=== PATIENT | female | born 1955 | race Hispanic/Latino ===

== ENCOUNTER 2021-08-09 16:42 | Inpatient (IN) | payer OTHER, SELFPAY ==
--- OUTSIDE RECORDS SUMMARY | 2021-08-09 16:46 | XMS REPORT | Continuity of Care Document ---
:1955 Author Organization [facility] t Address [address] [place] [address] Care Team Providers Name Role Phone PARVIZ Primary Care Physician Unavailable PARVIZ Attending Clinician Unavailable Penny Rodriguez MD Attending Clinician Lab, - Db Attending Clinician Unavailable Parviz LIVE Attending Clinician Payers Payer Name Policy Type Policy Number Effective Date Expiration Date S ource [employer] CHOICE [id number] 2021 00:00:00 Problems Condition Condition Condition Status Onset Resolution Last Treating Co mments Source Name Details Category Date Date Treatment Clinician Date Vitamin D Vitamin D Disease Active Uni vers deficiency deficiency 2-03 it y of 00:00: 00 Medical Branch Type 2 Type 2 Disease Active Univers diabetes diabetes 05-04 ity of mellitus mellitus 00:00: [place] without without 00 Medical complicati complicati Br anch on, on, without without long-term long-term current current use of use of insulin insulin HLD HLD Disease Active Univers (hyperlipi (hyperlipi 05-04 it y of demia) demia) 00:00: 00 Medical Branch Essential Essential Disease Active Uni vers hypertensi hypertensi 1-27 it y of on on 00:00: Medical Branch Depression Depression Disease Active U nivers - ity of 00:00: 00 Medical Branch GERD GERD Disease Active Univers (gastroeso (gastroeso 05-04 it y of phageal phageal 00:00: [place] reflux reflux 00 Medical disease) disease) Branch Type 2 Type 2 Disease Active [facility] diabetes diabetes 05-04 ity of mellitus mellitus 00:00: [place] with with 00 Medical hyperglyce hyperglyce Br anch elsie, elsie, without without long-term long-term current current use of use of insulin insulin Allergies, Adverse Reactions, Alerts Allergy Allergy Status Severity Reaction(s) Onset Inactive Treating Comm ents Source Name Type Date Date Clinician NO KNOWN Drug Active Univers ALLERGIE Class ity of S [place] [facility] [place] Social History Social Habit Start Date Stop Date Quantity Comments Source Exposure to Not sure University of SARS-CoV-2 [place] [facility] (event) Branch History [facility] University o f Alcohol Comment [place] Med ical Branch Alcohol intake 2021-05-11 2021-05-11 Lifetime University of 00:00:00 00:00:00 non-drinker [place] [facility] (finding) Branch History [facility] 2020-02-03 2020-02-03 1 University o f Alcohol Frequency 00:00:00 00:00:00 [place] M edical Branch History SDKY 2020-02-03 2020-02-03 99 University o f Alcohol Std 00:00:00 00:00:00 [place] [facility] Drinks Branch History [facility] 2020-02-03 2020-02-03 1 University o f Alcohol Binge 00:00:00 00:00:00 [place] [facility] al Branch Tobacco use and 2020-02-02 2020-02-02 Never used Universit y of exposure 00:00:00 00:00:00 [facility] Sex [birth year] Universit y of 00:00:00 00:00:00 [facility] Branch Smoking Status Start Date Stop Date Source Never smoker [facility] Branch Medications Ordered Filled Start Stop Current Ordering Indication Dosage Frequency Signature Comments Components Source Medication Medication Date Date Medication? Clinician (SIG) Name Name ampicillin 2021- Yes [id number] 500mg Take 1 Univers 500 mg 2-15 -23 capsule by ity of capsule 00:00: 05:59 mouth [place] 00 :00 every 8 Medical (eight) Branch hours for 7 days. ampicillin 2021- Yes [id number] 500mg Take 1 Univers 500 mg 2-15 -23 capsule by ity of capsule 00:00: 05:59 mouth [place] 00 :00 every 8 Medical (eight) Branch hours for 7 days. Cholecalcif 2022-0 Yes [id number] 2000U Take 1 Univers marlene, 2-03 capsule by ity of Vitamin D3, 00:00: mouth [place] (D3-1999) 00 daily. Medical 50 mcg Take with Branch (2,000 food unit) capsule dulaglutide 2022-0 Yes [id number] .75mg inject Univers (TRULICITY) 2-03 0.75 mg ity o f 0.75 mg/0.5 00:00: [place] mL PnIj 00 skin Medical weekly. Branch Cholecalcif 2022-0 Yes [id number] 2000U Take 1 Univers marlene, 2-03 capsule by ity of Vitamin D3, 00:00: mouth [place] (D3-1999) 00 daily. Medical 50 mcg Take with Branch (2,000 food unit) capsule dulaglutide 2022-0 Yes [id number] .75mg inject Univers (TRULICITY) 2-03 0.75 mg ity o f 0.75 mg/0.5 00:00: [place] mL PnIj 00 skin Medical weekly. Branch Cholecalcif 2-0 Yes [id number] 2000U Take 1 Univers marlene, 2-03 capsule by ity of Vitamin D3, 00:00: mouth [place] (D3-1999) 00 daily. Medical 50 mcg Take with Branch (2,000 food unit) capsule dulaglutide 2022-0 Yes [id number] .75mg inject Univers (TRULICITY) 2-03 0.75 mg ity o f 0.75 mg/0.5 00:00: under the [place] mL PnIj 00 skin Medical weekly. Branch Cholecalcif 2022-0 Yes [id number] 1999U Take 1 Univers marlene, 2-03 capsule by ity of Vitamin D3, 00:00: mouth [place] (D3-1999) 00 daily. Medical 50 mcg Take with Branch (2,000 food unit) capsule dulaglutide 2022-0 Yes [id number] .75mg inject Univers (TRULICITY) 2-03 0.75 mg ity o f 0.75 mg/0.5 00:00: [place] the [place] mL PnIj 00 skin Medical weekly. Branch Cholecalcif 2022-0 Yes [id number] 2000U Take 1 Univers marlene, 2-03 capsule by ity of Vitamin D3, 00:00: mouth [place] (D3-1999) 00 daily. Medical 50 mcg Take with Branch (2,000 food unit) capsule dulaglutide Yes [id number] .75mg inject Univers (TRULICITY) 2-03 0.75 mg ity o f 0.75 mg/0.5 00:00: under the [place] mL PnIj 00 skin Medical weekly. Branch Cholecalcif Yes [id number] 2000U Take 1 Univers marlene, 2-03 capsule by ity of Vitamin D3, 00:00: mouth [place] (D3-1999) 00 daily. Medical 50 mcg Take with Branch (2,000 food unit) capsule dulaglutide Yes [id number] .75mg inject Univers (TRULICITY) 2-03 0.75 mg ity o f 0.75 mg/0.5 00:00: under the [place] mL PnIj 00 skin Medical weekly. Branch citalopram 2021- No 10mg Take 10 mg Univers 10 mg 05-04 by mouth ity of tablet 14:05: 00:00 daily. [place] 01 : Medical Branch gabapentin 2021- No 300mg Take 300 U nivers 300 mg 05-04-27 mg by ity of capsule 14:05: 00:00 mouth 3 [place] 01 :00 (three) Medical times Branch daily. citalopram 2021- No 10mg Take 10 mg Univers 10 mg 05-04 by mouth ity of tablet 14:05: 00:00 daily. [place] 01 : Medical Branch gabapentin 2021- No 300mg Take 300 U nivers 300 mg 05-04-27 mg by ity of capsule 14:05: 00:00 mouth 3 [place] 01 :00 (three) Medical times Branch daily. insulin NPH 2021- No inject Uni vers hum/reg 05-04 under the ity of insulin hm 14:00: 00:00 skin. 50 [place] (NOVOLIN 46 :00 units in Medical 70/30 U-100 AM and 30 [facility] INSULIN SC) units pm insulin NPH 2021- No inject Uni vers hum/reg 05-04 under the ity of insulin hm 14:00: 00:00 skin. 50 [place] (NOVOLIN 46 :00 units in Medical 70/30 U-100 AM and 30 [facility] INSULIN SC) units pm aspirin 2021-0 Yes 81mg Take 81 mg Univ ers (ADULT LOW 1-27 by mouth ity o f DOSE 13:45: daily. [place] ASPIRIN) 81 22 Medical mg EC Branch tablet CENTRUM 2021-0 Yes Take by Univer s ORAL 1- mouth. ity of 13:45: Medical Branch aspirin 2021-0 Yes 81mg Take 81 mg Univ ers (ADULT LOW 1-27 by mouth ity o f DOSE 13:45: daily. [place] ASPIRIN) 81 22 Medical mg EC Branch tablet CENTRUM 2021-0 Yes Take by Univer s ORAL 1- mouth. ity of 13:45: Medical Branch aspirin 2021-0 Yes 81mg Take 81 mg Univ ers (ADULT LOW 1-27 by mouth ity o f DOSE 13:45: daily. [place] ASPIRIN) 81 22 Medical mg EC Branch tablet CENTRUM 2021-0 Yes Take by Univer s ORAL 1- mouth. ity of 13:45: Medical Branch aspirin 2021-0 Yes 81mg Take 81 mg Univ ers (ADULT LOW 1-27 by mouth ity o f DOSE 13:45: daily. [place] ASPIRIN) 81 22 Medical mg EC Branch tablet CENTRUM 2021-0 Yes Take by Univer s ORAL 1- mouth. ity of 13:45: Medical Branch aspirin 2021-0 Yes 81mg Take 81 mg Univ ers (ADULT LOW 1-27 by mouth ity o f DOSE 13:45: daily. [place] ASPIRIN) 81 22 Medical mg EC Branch tablet CENTRUM 2021-0 Yes Take by Univer s ORAL - mouth. ity of 13:45: Medical Branch aspirin 2021-0 Yes 81mg Take 81 mg Univ ers (ADULT LOW 1-27 by mouth ity o f DOSE 13:45: daily. [place] ASPIRIN) 81 22 Medical mg EC Branch tablet CENTRUM 2021-0 Yes Take by Univer s ORAL 1- mouth. ity of 13:45: Medical Branch aspirin 2-0 Yes 81mg Take 81 mg Univ ers (ADULT LOW 1-27 by mouth ity o f DOSE 13:45: daily. [place] ASPIRIN) 81 22 Medical mg EC Branch tablet CENTRUM 2021-0 Yes Take by Univer s ORAL 1-27 mouth. ity of 13:45: [address] aspirin 2021-0 Yes 81mg Take 81 mg Univ ers (ADULT LOW 1-27 by mouth ity o f DOSE 13:45: daily. [place] ASPIRIN) 81 22 Medical mg EC Branch tablet CENTRUM 2021-0 Yes Take by Univer s ORAL 1-27 mouth. ity of 13:45: [address] aspirin 2021-0 Yes 81mg Take 81 mg Univ ers (ADULT LOW 1-27 by mouth ity o f DOSE 13:45: daily. [place] ASPIRIN) 81 22 Medical mg EC Branch tablet CENTRUM 2021-0 Yes Take by Univer s ORAL 1-27 mouth. ity of 13:45: [address] ezetimibe 2021-0 Yes 10mg Take 10 mg Un jose 10 mg 1-27 by mouth ity of tablet 13:40: daily. [address] ezetimibe 2021-0 Yes 10mg Take 10 mg Un jose 10 mg 1-27 by mouth ity of tablet 13:40: daily. [address] ezetimibe 2021-0 Yes 10mg Take 10 mg Un jose 10 mg 1-27 by mouth ity of tablet 13:40: daily. [address] ezetimibe 2021-0 Yes 10mg Take 10 mg Un jose 10 mg 1-27 by mouth ity of tablet 13:40: daily. [address] ezetimibe 2021-0 Yes 10mg Take 10 mg Un jose 10 mg 1-27 by mouth ity of tablet 13:40: daily. [address] ezetimibe 2021-0 Yes 10mg Take 10 mg Un jose 10 mg 1-27 by mouth ity of tablet 13:40: daily. [address] ezetimibe 2021-0 Yes 10mg Take 10 mg Un jose 10 mg 1-27 by mouth ity of tablet 13:40: daily. [address] ezetimibe 2021-0 Yes 10mg Take 10 mg Un jose 10 mg 1-27 by mouth ity of tablet 13:40: daily. [address] ezetimibe 2021-0 Yes 10mg Take 10 mg Un jose 10 mg 1-27 by mouth ity of tablet 13:40: daily. [address] metFORMIN 2022-0 Yes 1000mg Take 1,000 Univers 1,000 mg 1-27 mg by ity of tablet 13:36: mouth 2 [place] [address] (two) Medical times Branch daily with meals. metFORMIN 2022-0 Yes 1000mg Take 1,000 Univers 1,000 mg 1-27 mg by ity of tablet 13:36: mouth 2 [place] 25 (two) Medical times Branch daily with meals. metFORMIN 2022-0 Yes 1000mg Take 1,000 Univers 1,000 mg 1-27 mg by ity of tablet 13:36: mouth 2 [place] 25 (two) Medical times Branch daily with meals. metFORMIN 2022-0 Yes 1000mg Take 1,000 Univers 1,000 mg 1-27 mg by ity of tablet 13:36: mouth 2 [place] 25 (two) Medical times Branch daily with meals. metFORMIN 2022-0 Yes 1000mg Take 1,000 Univers 1,000 mg 1-27 mg by ity of tablet 13:36: mouth 2 [place] 25 (two) Medical times Branch daily with meals. metFORMIN 2022-0 Yes 1000mg Take 1,000 Univers 1,000 mg 1-27 mg by ity of tablet 13:36: mouth 2 [place] [address] (two) Medical times Branch daily with meals. metFORMIN 2022-0 Yes 1000mg Take 1,000 Univers 1,000 mg 1-27 mg by ity of tablet 13:36: mouth 2 [place] 25 (two) Medical times Branch daily with meals. metFORMIN 2022-0 Yes 1000mg Take 1,000 Univers 1,000 mg 1-27 mg by ity of tablet 13:36: mouth 2 [place] 25 (two) Medical times Branch daily with meals. metFORMIN 2022-0 Yes 1000mg Take 1,000 Univers 1,000 mg 1-27 mg by ity of tablet 13:36: mouth 2 [place] [address] (two) Medical times Branch daily with meals. citalopram 2022-0 Yes [id number] 10mg Take 1 Univers 10 mg 1-27 tablet by ity of tablet 00:00: mouth [place] 00 daily. Medical Branch gabapentin 2022-0 Yes [id number] 400mg Take 1 Univers 400 mg 1-27 capsule by ity of capsule 00:00: mouth 3 [place] 00 (three) Medical times Branch daily. insulin NPH 2022-0 Yes [id number] Inj 50 Univers and regular 1-27 units SC ity of human 70-30 00:00: qAC [place] (NOVOLIN 00 breakfast Medica l 70/30 U-100 and 30 Branch INSULIN) units qAC 100 unit/mL dinner (70-30) injection citalopram Yes [id number] 10mg Take 1 Univers 10 mg 1-27 tablet by ity of tablet 00:00: mouth 00 daily. Medical Branch gabapentin Yes [id number] 400mg Take 1 Univers 400 mg 1-27 capsule by ity of capsule 00:00: mouth 3 (three) Medical times Branch daily. insulin NPH Yes [id number] Inj 50 Univers and regular 1-27 units SC [facility] Med[facility] l 70/30 U-100 and 30 Branch INSULIN) units qAC 100 unit/mL dinner (70-30) injection citalopram Yes [id number] 10mg Take 1 Univers 10 mg 1-27 tablet by ity of tablet 00:00: mouth 00 daily. Medical Branch gabapentin Yes [id number] 400mg Take 1 Univers 400 mg 1-27 capsule by ity of capsule 00:00: mouth (three) Medical times Branch daily. insulin NPH Yes [id number] Inj 50 Univers and regular 1-27 units SC [facility] Medica l 70/30 U-100 and 30 Branch INSULIN) units qAC 100 unit/mL dinner (70-30) injection citalopram Yes [id number] 10mg Take 1 Univers 10 mg 1-27 tablet by ity of tablet 00:00: mouth 00 daily. Medical Branch gabapentin Yes [id number] 400mg Take 1 Univers 400 mg 1-27 capsule by ity of capsule 00:00: mouth 3 (three) Medical times Branch daily. insulin NPH Yes [id number] Inj 50 Univers and regular 1-27 units SC ity [facility] human [facility] Medica l 70/30 U-100 and 30 Branch INSULIN) units qAC 100 unit/mL dinner (70-30) injection citalopram Yes [id number] 10mg Take 1 Univers 10 mg 1-27 tablet by ity of tablet 00:00: mouth [place] 00 daily. Medical Branch gabapentin Yes [id number] 400mg Take 1 Univers 400 mg 1-27 capsule by ity of capsule 00:00: mouth 3 (three) Medical times Branch daily. insulin NPH Yes [id number] Inj 50 Univers and regular 1-27 units SC ity of human 70-30 00:00: qAC [place] (NOVOLIN 00 breakfast Medica l 70/30 U-100 and 30 Branch INSULIN) units qAC 100 unit/mL dinner (70-30) injection citalopram Yes [id number] 10mg Take 1 Univers 10 mg 1-27 tablet by ity of tablet 00:00: mouth [place] 00 daily. Medical Branch gabapentin Yes [id number] 400mg Take 1 Univers 400 mg 1-27 capsule by ity of capsule 00:00: mouth (three) Medical times Branch daily. insulin NPH Yes [id number] Inj 50 Univers and regular 1-27 units SC ity of human 70-30 00:00: qAC [place] (NOVOLIN 00 breakfast Medica l 70/30 U-100 and 30 Branch INSULIN) units qAC 100 unit/mL dinner (70-30) injection citalopram Yes [id number] 10mg Take 1 Univers 10 mg 1-27 tablet by ity of tablet 00:00: mouth [place] 00 daily. Medical Branch gabapentin Yes [id number] 400mg Take 1 Univers 400 mg 1-27 capsule by ity of capsule 00:00: mouth (three) Medical times Branch daily. insulin NPH Yes [id number] Inj 50 Univers and regular 1-27 units SC ity of human 70-30 00:00: qAC [place] (NOVOLIN 00 breakfast Medica l 70/30 U-100 and 30 Branch INSULIN) units qAC 100 unit/mL dinner (70-30) injection citalopram Yes [id number] 10mg Take 1 Univers 10 mg 1-27 tablet by ity of tablet 00:00: mouth [place] 00 daily. Medical Branch gabapentin Yes [id number] 400mg Take 1 Univers 400 mg 1-27 capsule by ity of capsule 00:00: mouth 3 (three) Medical times Branch daily. insulin NPH Yes [id number] Inj 50 Univers and regular 1-27 units SC ity of human 70-30 00:00: qAC [place] (NOVOLIN 00 breakfast Medica l 70/30 U-100 and 30 Branch INSULIN) units qAC 100 unit/mL dinner (70-30) injection citalopram Yes [id number] 10mg Take 1 Univers 10 mg 1-27 tablet by ity of tablet 00:00: mouth [place] 00 daily. Medical Branch gabapentin Yes [id number] 400mg Take 1 Univers 400 mg 1-27 capsule by ity of capsule 00:00: mouth 3 (three) Medical times Branch daily. insulin NPH Yes [id number] Inj 50 Univers and regular 1-27 units SC [facility]y [facility] human [facility] Medica l 70/30 U-100 and 30 Branch INSULIN) units qAC 100 unit/mL dinner (70-30) injection pantoprazol 2019-04 Yes [id number] 20mg Take 1 Univers e 20 mg EC 1-03 tablet by ity of tablet 00:00: mouth 2 (two) Medical times Branch daily. atorvastati 2019-04 Yes [id number] 80mg Take 1 Univers n 80 mg 1-03 tablet by ity of tablet 00:00: mouth at [place] 00 bedtime. Medical Branch Lancets 2019-04 Yes [id number] Use as Uni vers Misc 03 directed ity of 00:00: [place] 00 Medical Branch blood sugar 2019-04 Yes [id number] Check Univers diagnostic 1-03 blood ity of (BLOOD 00:00: sugar [place] GLUCOSE 00 daily in Medical TEST) strip morning Branc h before meals pantoprazol 2019-04 Yes [id number] 20mg Take 1 Univers e 20 mg EC 1-03 tablet by ity of tablet 00:00: mouth 2 (two) Medical times Branch daily. atorvastati 2019-04 Yes [id number] 80mg Take 1 Univers n 80 mg 1-03 tablet by ity of tablet 00:00: mouth at [place] 00 bedtime. Medical Branch Lancets 2019-04 Yes [id number] Use as Uni vers Misc 03 directed ity of 00:00: [place] 00 Medical Branch blood sugar 2019-04 Yes [id number] Check Univers diagnostic 04-10 blood ity of (BLOOD 00:00: sugar [place] GLUCOSE 00 daily in Medical TEST) strip morning Branc h before meals pantoprazol 2019-04 Yes [id number] 20mg Take 1 Univers e 20 mg EC 1-03 tablet by ity of tablet 00:00: mouth 2 (two) Medical times Branch daily. atorvastati 2019-04 Yes [id number] 80mg Take 1 Univers n 80 mg 1-03 tablet by ity of tablet 00:00: mouth at [place] 00 bedtime. Medical Branch Lancets 2019-04 Yes [id number] Use as Uni vers Misc - directed ity of 00:00: [place] 00 Medical Branch blood sugar 2019-04 Yes [id number] Check Univers diagnostic 04-10 blood ity of (BLOOD 00:00: sugar [place] GLUCOSE 00 daily in Medical TEST) strip morning Branc h before meals pantoprazol 2019-04 Yes [id number] 20mg Take 1 Univers e 20 mg EC 1-03 tablet by ity of tablet 00:00: mouth 2 (two) Medical times Branch daily. atorvastati 2019-04 Yes [id number] 80mg Take 1 Univers n 80 mg 1-03 tablet by ity of tablet 00:00: mouth at [place] 00 bedtime. Medical Branch Lancets 2019-04 Yes [id number] Use as Uni vers Misc - directed ity of 00:00: [place] 00 Medical Branch blood sugar 2019-04 Yes [id number] Check Univers diagnostic 04-10 blood ity of (BLOOD 00:00: sugar [place] GLUCOSE 00 daily in Medical TEST) strip morning Branc h before meals pantoprazol 2019-04 Yes [id number] 20mg Take 1 Univers e 20 mg EC 1-03 tablet by ity of tablet 00:00: mouth 2 (two) Medical times Branch daily. atorvastati 2019-04 Yes [id number] 80mg Take 1 Univers n 80 mg 1-03 tablet by ity of tablet 00:00: mouth at [place] 00 bedtime. Medical Branch Lancets 2019-04 Yes [id number] Use as Uni vers Misc 1- directed ity of 00:00: [place] 00 Medical Branch blood sugar 2019-04 Yes [id number] Check Univers diagnostic 1-03 blood ity of (BLOOD 00:00: sugar [place] GLUCOSE 00 daily in Medical TEST) strip morning Branc h before meals pantoprazol 2019-04 Yes [id number] 20mg Take 1 Univers e 20 mg EC 1-03 tablet by ity of tablet 00:00: mouth 2 (two) Medical times Branch daily. atorvastati 2019-04 Yes [id number] 80mg Take 1 Univers n 80 mg 1-03 tablet by ity of tablet 00:00: mouth at [place] 00 bedtime. Medical Branch Lancets 2019-04 Yes [id number] Use as Uni vers Misc - directed ity of 00:00: [place] 00 Medical Branch blood sugar 2019-04 Yes [id number] Check Univers diagnostic 04-10 blood ity of (BLOOD 00:00: sugar [place] GLUCOSE 00 daily in Medical TEST) strip morning Branc h before meals pantoprazol 2019-04 Yes [id number] 20mg Take 1 Univers e 20 mg EC 1-03 tablet by ity of tablet 00:00: mouth 2 (two) Medical times Branch daily. atorvastati 2019-04 Yes [id number] 80mg Take 1 Univers n 80 mg 1-03 tablet by ity of tablet 00:00: mouth at [place] 00 bedtime. Medical Branch Lancets 2019-04 Yes [id number] Use as Uni vers Misc - directed ity of 00:00: [place] 00 Medical Branch blood sugar 2019-04 Yes [id number] Check Univers diagnostic 04-10 blood ity of (BLOOD 00:00: sugar [place] GLUCOSE 00 daily in Medical TEST) strip morning Branc h before meals pantoprazol 2019-04 Yes [id number] 20mg Take 1 Univers e 20 mg EC 1-03 tablet by ity of tablet 00:00: mouth 2 (two) Medical times Branch daily. atorvastati 2019-04 Yes [id number] 80mg Take 1 Univers n 80 mg 1-03 tablet by ity of tablet 00:00: mouth at [place] 00 bedtime. Medical Branch Lancets 2019-04 Yes [id number] Use as Uni vers Misc -03 directed ity of 00:00: [place] 00 Medical Branch blood sugar 2019-04 Yes [id number] Check Univers diagnostic 03 blood ity of (BLOOD 00:00: sugar [place] GLUCOSE 00 daily in Medical TEST) strip morning Branc h before meals pantoprazol 2019-04 Yes [id number] 20mg Take 1 Univers e 20 mg EC 1-03 tablet by ity of tablet 00:00: mouth 2 00 (two) Medical times Branch daily. atorvastati 2019-04 Yes [id number] 80mg Take 1 Univers n 80 mg -03 tablet by ity of tablet 00:00: mouth at [place] 00 bedtime. Medical Branch Lancets 2019-04 Yes [id number] Use as Uni vers Misc 04-10 directed ity of 00:00: [place] 00 Medical Branch blood sugar 2019-04 Yes [id number] Check Univers diagnostic 04-10 blood ity of (BLOOD 00:00: sugar [place] GLUCOSE 00 daily in Medical TEST) strip morning Branc h before meals Immunizations Ordered Filled Immunization Date Status Comments Sourc e Immunization Name Name SARS-COV-2 COVID-19 2021-03-02 Completed Unive rsity of MODERNA VACCINE 00:00:00 [facility] SARS-COV-2 COVID-19 2021-03-02 Completed Unive rsity of MODERNA VACCINE 00:00:00 [facility] SARS-COV-2 COVID-19 2021-03-02 Completed Unive rsity of MODERNA VACCINE 00:00:00 [facility] SARS-COV-2 COVID-19 2021-03-02 Completed Unive rsity of MODERNA VACCINE 00:00:00 [facility] SARS-COV-2 COVID-19 2021-03-02 Completed Unive rsity of MODERNA VACCINE 00:00:00 [facility] SARS-COV-2 COVID-19 2021-03-02 Completed Unive rsity of MODERNA VACCINE 00:00:00 [facility] SARS-COV-2 COVID-19 2021-03-02 Completed Unive rsity of MODERNA VACCINE 00:00:00 [facility] SARS-COV-2 COVID-19 2021-03-02 Completed Unive rsity of MODERNA VACCINE 00:00:00 [facility] SARS-COV-2 COVID-19 2021-03-02 Completed Unive rsity of MODERNA VACCINE 00:00:00 [facility] SARS-COV-2 COVID-19 2020-06-12 Completed Unive rsity of MODERNA VACCINE 00:00:00 [place] Med ical Branch SARS-COV-2 COVID-19 2020-06-12 Completed Unive rsity of MODERNA VACCINE 00:00:00 [place] Med ical Branch SARS-COV-2 COVID-19 2020-06-12 Completed Unive rsity of MODERNA VACCINE 00:00:00 [place] Med ical Branch SARS-COV-2 COVID-19 2020-06-12 Completed Unive rsity of MODERNA VACCINE 00:00:00 [place] Med ical Branch SARS-COV-2 COVID-19 2020-06-12 Completed Unive rsity of MODERNA VACCINE 00:00:00 [place] Med ical Branch SARS-COV-2 COVID-19 2020-06-12 Completed Unive rsity of MODERNA VACCINE 00:00:00 [place] Med ical Branch SARS-COV-2 COVID-19 2020-06-12 Completed Unive rsity of MODERNA VACCINE 00:00:00 [place] Med ical Branch SARS-COV-2 COVID-19 2020-06-12 Completed Unive rsity of MODERNA VACCINE 00:00:00 [place] Med ical Branch SARS-COV-2 COVID-19 2020-06-12 Completed Unive rsity of MODERNA VACCINE 00:00:00 [place] Med ical Branch SARS-COV-2 COVID-19 2020-05-15 Completed Unive rsity of MODERNA VACCINE 00:00:00 [place] Med ical Branch SARS-COV-2 COVID-19 2020-05-15 Completed Unive rsity of MODERNA VACCINE 00:00:00 [place] Med ical Branch SARS-COV-2 COVID-19 2020-05-15 Completed Unive rsity of MODERNA VACCINE 00:00:00 [place] Med ical Branch SARS-COV-2 COVID-19 2020-05-15 Completed Unive rsity of MODERNA VACCINE 00:00:00 [place] Med ical Branch SARS-COV-2 COVID-19 2020-05-15 Completed Unive rsity of MODERNA VACCINE 00:00:00 [place] Med ical Branch SARS-COV-2 COVID-19 2020-05-15 Completed Unive rsity of MODERNA VACCINE 00:00:00 [place] Med ical Branch SARS-COV-2 COVID-19 2020-05-15 Completed Unive rsity of MODERNA VACCINE 00:00:00 [place] Med ical Branch SARS-COV-2 COVID-19 2020-05-15 Completed Unive rsity of MODERNA VACCINE 00:00:00 [place] Med ical Branch SARS-COV-2 COVID-19 2020-05-15 Completed Unive rsity of MODERNA VACCINE 00:00:00 [place] Med ical Branch Pneumococcal 2020-02-04 Completed University o f Polysaccharide, 00:00:00 [place] Med ical PPSV23 (PNEUMOVAX) Branch Pneumococcal 2020-02-04 Completed University o f Polysaccharide, 00:00:00 [place] Med ical PPSV23 (PNEUMOVAX) Branch Pneumococcal 2020-02-04 Completed University o f Polysaccharide, 00:00:00 [place] Med ical PPSV23 (PNEUMOVAX) Branch Pneumococcal 2020-02-04 Completed University o f Polysaccharide, 00:00:00 [place] Med ical PPSV23 (PNEUMOVAX) Branch Pneumococcal 2020-02-04 Completed University o f Polysaccharide, 00:00:00 [place] [facility] PPSV23 (PNEUMOVAX) Branch Pneumococcal 2020-02-04 Completed [facility] f Polysaccharide, 00:00:00 [place] [facility] PPSV23 (PNEUMOVAX) Branch Pneumococcal 2020-02-04 Completed [facility] o f Polysaccharide, 00:00:00 [place] [facility] PPSV23 (PNEUMOVAX) Branch Pneumococcal 2020-02-04 Completed University o f Polysaccharide, 00:00:00 [place] [facility] PPSV23 (PNEUMOVAX) Branch Pneumococcal 2020-02-04 Completed [facility] o f Polysaccharide, 00:00:00 [place] [facility] PPSV23 (PNEUMOVAX) Branch Vital Signs Vital Name Observation Time Observation Value Comments Source Systolic blood 2021-05-04 19:40:00 123 mm[Hg] [facility] [place] pressure [facility] Diastolic blood 2021-05-04 19:40:00 76 mm[Hg] Unive rs[facility] of [facility] Heart rate 2021-05-04 19:40:00 105 /min [facility] Body height 2021-05-04 19:40:00 167.6 cm [facility] Body weight 2021-05-04 19:40:00 80.74 kg [facility] BMI 2021-05-04 19:40:00 28.73 kg/m2 [facility] Oxygen saturation 2021-05-04 19:40:00 97 /min [facility] in Arterial blood Medical Br anch by Pulse oximetry Procedures This patient has no known procedures. Encounters Start End Encounter Admission Attending Care Care Encounter Source Date/Time Date/Time Type Type Clinicians Facility Department ID 2021-07-24 2021-07-24 Outpatient R PARVIZ [facility] [id number] [facility] 08:30:00 08:30:[address] [facility] 2021-06-27 2021-06-27 Telephone Michael [facility] [id number] [facility] 00:00:00 00:00:00 Wondiful A HEALTH [id number] ity of [place] [id number] Adam as REGINALD?BLEA [id number] [address] MEDICAL OFFICE [facility] 2021-05-25 2021-05-25 Telephone Michael [facility] [id number] [facility] 00:00:00 00:00:00 Wondiful A HEALTH [id number] ity of [place] [id number] Adam as REGINALD?BLEA [id number] [address] MEDICAL OFFICE [facility] 2021-05-23 2021-05-23 Case Michael [facility] [id number] Univers 00:00:00 00:00:00 Management Wondiful A HEALTH [id number] ity of [place] [id number] Adam as REGINALD?BLEA [id number] [facility] [address] MEDICAL OFFICE [facility] 2021-05-19 2021-05-19 [facility], Ang - En [facility] [id number] Univers 07:45:00 08:00:00 Visit Karen Jj HEALTH [id number] ity of [place] [id number] Adam as ERGINALD?BLEA [id number] Me dical [address] MEDICAL OFFICE BUILDING 2021-05-19 2021-05-19 Outpatient R [facility] [id number] Univers 07:45:00 07:45:00 [id number] ity of [facility] 2021-05-19 2021-05-19 [facility] [id number] Univers 07:45:00 07:45:[address] [facility] 2021-05-17 2021-05-17 [facility] 1.2.840.114 [id number] Univers 00:00:00 00:00:00 Wondiful A HEALTH [id number] ity of [place] [id number] Adam as REGINALD?BLEA [id number] [address] MEDICAL OFFICE [facility] 2021-05-11 2021-05-11 [facility] [id number] Univers 00:00:00 00:00:00 Management Wondiful A HEALTH [id number] ity of [place] [id number] Adam as REGINALD?BLEA [id number] [address] OFFICE [facility] 2021-05-05 2021-05-05 [facility] - Db [facility] 1.2.840.1 [id number] Univers 08:00:00 08:15:00 Visit Karen Jj HEALTH [id number] ity of [place] [id number] Adam as REGINALD?BLEA [id number] [address] MEDICAL OFFICE [facility] 2021-05-05 2021-05-05 Outpatient R PARVIZ [facility] [id number] Univers 08:00:00 08:00:[address] [facility] 2021-05-04 2021-05-04 [facility] [id number] Univers 13:30:00 14:15:36 Visit Wondiful A HEALTH [id number] ity of [place] [id number] Adam as REGINALD?BLEA [id number] Me dical KNEY [address] MEDICAL OFFICE BUILDING Results This patient has no known results.
[2021-08-09] MEDS ORDERED: NA CHLORIDE 0.9% 2,000 ML ONE (17:13)
[2021-08-09] MEDS ORDERED: ACETAMINOPHEN 500 MG TAB ONE (17:13)
[2021-08-09 17:30] LABS: Hematocrit 36.5 % (36.0-45.0); Lymphocytes % 10.4 % (15.3-44.8); MPV 7.2 fL (7.6-11.3); RBC Red Blood Cell Count 4.21 M/uL (3.86-4.86)
[2021-08-09 17:36] LABS: Protime INR 1.15
[2021-08-09 17:49] LABS: Albumin 2.9 g/dL (3.4-5.0); Bilirubin Total 0.4 mg/dL (0.2-1.0); Potassium 3.6 mmol/L (3.5-5.1); Protein, Total 7.9 g/dL (6.4-8.2)
[2021-08-09 17:57] LABS: Urine Bacteria 20-50 /HPF (<20)
[2021-08-09] MEDS ORDERED: CEFTRIAXONE 1000 MG/VIAL ONE (18:14)
[2021-08-09 18:23] LABS: SARS-COV-2 RT PCR NEGATIVE (NEGATIVE)
--- NOTE | 2021-08-09 18:34 | RAD REPORT ---
EXAM DESCRIPTION: CTAbdomen Pelvis W Contrast - 08/09/2021 6:14 pm CLINICAL HISTORY: abdominal pain, acute, fever COMPARISON: No comparisonsAbdomen Exam Limited dated 08/09/2021 TECHNIQUE: CT of the abdomen and pelvis was performed. All CT scans are performed using dose optimization technique as appropriate and may include automated exposure control or mA/KV adjustment according to patient size. FINDINGS: Lower chest: No acute abnormality. Liver: Hepatic steatosis Biliary: No biliary ductal dilatation. Stomach: No significant focal abnormality. Duodenum: No significant focal abnormality. Pancreas: [place] pancreatic body mass measuring 5.7 x 2.1 cm. The downstream pancreatic duct is dilat ed. The upstream pancreatic duct is not visualized. The pancreatic tail is atrophic. The duct at the mass is not seen however there are some heterogeneous solid components. Spleen: No significant abnormality. Adrenal: No suspicious lesions. Kidney/ureter: No renal calculi. The ureters are enhancing bilaterally. Mild hydroureter. No hydrone phrosis. Wedge-shaped area of hypoattenuation in the left kidney. Retroperitoneum: No retroperitoneal adenopathy. Vascular: No aneurysm. Bowel: No significant focal abnormality. Peritoneum: No ascites or free air. Bladder: Circumferential bladder wall thickening. Reproductive: No adnexal masses. Bones: No acute fracture. Other: n/a IMPRESSION: 1, bilateral urothelial thickening and bladder wall thickening concerning for ascending urinary tract infection. Left-sided pyelonephritis noted. No abscess at this time. 2. Pancreatic body mass concerning for neoplasm. This could be secondary to a main duct intraductal p apillary mucinous neoplasm (IPMN) with malignant transformation. ERCP/EUS is recommended for further evaluation.
--- NOTE | 2021-08-09 18:38 | RAD REPORT ---
EXAM DESCRIPTION: US - Abdomen Exam Limited - 08/09/2021 6:30 pm CLINICAL HISTORY: fever, abd pain COMPARISON: No comparisons FINDINGS: The gallbladder demonstrates no gallstones. No pericholecystic fluid or gallbladder wall t hickening. The common bile duct is normal measuring 2 mm. The liver demonstrates no findings of intrahepatic biliary dilatation. IMPRESSION: No evidence of cholelithiasis or acute cholecystitis. No biliary ductal dilatation.
--- NOTE | 2021-08-09 18:49 | ER ---
Nurse's Notes [facility] Name: Janet Feng Age: 66 yrs Sex: Female : 1955 Arrival Date: 08/09/2021 Time: 16:51 Bed 8 Private MD: Diagnosis: Pyelonephritis acute;Sepsis, unspecified organism Presentation: 08/09 16:56 Chief complaint: Patient states: upper abd pain today. Pt states "I just starting aa5 shaking really bad". Pt denies nausea/vomiting/diarrhea. Coronavirus screen: fever. Ebola Screen: No symptoms or risks identified at this time. Initial Sepsis Screen: Does the patient meet any 2 criteria? RR > 20 per min. Temp <36.0*C (96.8*F)) or > 38.3*C (100.9*F). HR > 90 bpm. Does the patient have a suspected source of infection? Yes: Acute abdominal pain. Risk Assessment: Do you want to hurt yourself or someone else? Patient reports no desire to harm self or others. Onset of symptoms was August 09, 2021. 16:56 Acuity: OSCAR 2 aa5 16:56 Method Of Arrival: Ambulatory aa5 Historical: - Allergies: 16:57 No Known Allergies; aa5 - PMHx: 16:57 Diabetes mellitus; Depressive disorder; aa5 - PSHx: 16:57 None; aa5 - Immunization history:: Pneumococcal vaccine is not up to date, Flu vaccine is up to date. - Social history:: Smoking status: Patient denies any tobacco usage or history of. - Family history:: not pertinent. - Hospitalizations: : No recent hospitalization is reported. Screenin:05 Abuse screen: Denies threats or abuse. Nutritional screening: No deficits noted. jh6 Tuberculosis screening: No symptoms or risk factors identified. Fall Risk IV access (20 points). Assessment: 17:04 General: Appears uncomfortable, Behavior is calm, cooperative. Pain: Complains of pain jh6 in right upper quadrant and left upper quadrant Pain does not radiate. Pain currently is 5 out of 10 on a pain scale. Quality of pain is described as aching, crampy, Pain began suddenly, Is continuous, Alleviated by nothing. Aggravated by PALPATION OF UPPER ABDD. 17:06 GI: Bowel sounds present X 4 quads. Abd is soft Abdomen is tender to palpation in right jh6 upper quadrant and left upper quadrant Reports upper abdominal pain. 19:16 General: Appears in no apparent distress. Behavior is calm, cooperative, appropriate tw5 for age. Pain: Denies pain. Neuro: Level of Consciousness is awake, alert, obeys commands. Respiratory: Airway is patent Trachea midline Respiratory effort is even, unlabored. : Reports. Vital Signs: 16:56 BP 129 / 83; Pulse 124; Resp 26 S; Temp 102.3(O); Pulse Ox 95% on R/A; Height 5 ft. 5 aa5 in. (165.10 cm) (R); 17:18 BP 155 / 85; Pulse 109; Resp 18; Weight 77.11 kg; Height 5 ft. 0 in. (152.40 cm); jh6 19:12 BP 124 / 82; Pulse 103; Resp 20; Pulse Ox 96% on R/A; tw5 19:44 Temp 99(O); tw5 17:18 Body Mass Index 33.20 (77.11 kg, 152.40 cm) [facility] ED Course: 16:51 Patient arrived in ED. am2 16:51 Polo Cesar MD is Attending Physician. rn 16:56 Arm band placed on. aa5 16:57 Triage completed. aa5 17:04 Rebecca Ball, RN is Primary Nurse. [facility] 17:06 Placed in gown. Bed in low position. Call light in reach. Side rails up X 1. [facility] 17:18 Inserted saline lock: 20 gauge in left antecubital area, using aseptic technique. Blood [facility] collected. 17:18 First set of blood cultures drawn by ED staff, EKG done, by ED staff, reviewed by Polo Cesar MD COVID swab sent to lab. 17:24 Pillow given. secured entrance monitor on. Pulse ox on. NIBP on. 5 17:25 COVID-19/FLU A+B (Document "Date of Onset" if Symptomatic) Sent. 5 17:25 Blood Culture Adult (2) Sent. 5 17:25 CBC with Diff Sent. 5 17:25 CMP Sent. 5 17:25 Lactate Sent. 5 17:25 Protime (+inr) Sent. 5 17:25 Ptt, Activated Sent. 5 17:25 Urine Culture Sent. mh5 18:16 CT Abd/Pelvis - IV Contrast Only In Process Unspecified. EDMS 18:31 US Abdomen Limited In Process Unspecified. EDMS 18:48 Lobo Marin MD is Hospitalizing Provider. rn 19:11 Blood Culture Adult (2) Sent. tw5 19:11 Urine Culture Sent. tw5 19:16 Assisted to bathroom. tw5 19:17 Primary Nurse role handed off by Rebecca Ball RN 2 19:18 Olinda Arzate is Primary Nurse. tw5 19:44 Assisted to bathroom. tw5 20:53 No provider procedures requiring assistance completed. Patient admitted, IV remains in [address] Administered Medications: 17:20 Drug: Acetaminophen 1000 mg Route: PO; [facility] 19:18 Follow up: Response: No adverse reaction [facility] 17:20 Drug: NS 0.9% (30 ml/kg) 30 ml/kg Route: IV; Rate: bolus; Site: left antecubital; [facility] 18:22 Drug: Rocephin (cefTRIAXone) 1 grams Route: IV; Rate: calculated rate; Site: left [facility] antecubital; Outcome: 18:48 Decision to Hospitalize by Provider. rn 20:09 Admitted to Med/surg Report called to Attempted to call report. Spoke to Yamile zhou tw5 stated that the rooms have not been assigned yet. 20:27 Admitted to Med/surg [facility] 20:54 Admitted to Med/surg accompanied by nurse, via wheelchair, room 231, with chart, Report tw5 called to Attempted to call report. Was placed on hold for 5 min. 20:54 Condition: stable 21:02 Admitted to Med/surg Report called to Attempted to call report. Spoke to yamile zhou tw5 stated that she would try and get ahold of the nurse again. Placed on hold for 4 min. 21:18 Admitted to Med/surg Report called to Called report to Yamile [facility] 21:21 Patient left the ED. [facility] Signatures: Dispatcher [employer] EDPolo Gabriel MD MD rn Calderon, Audri, RN RN aa5 Martinez, Maria 5 Leydi Vaca am2 Ju Cooney mw2 Olinda Arzate [facility] Rebecca Ball, LUCIA MYERS [facility]
--- NOTE | 2021-08-09 18:50 | EDPHYS ---
Physician Documentation [facility] Name: Janet Feng Age: 66 yrs Sex: Female : 1955 Arrival Date: 08/09/2021 Time: 16:51 Bed 8 Private MD: ED Physician Polo Cesar HPI: 08/09 17:07 This 66 yrs old Female presents to ER via Ambulatory with complaints of fever, rn abdominal Pain. 17:07 The patient reports fever, not measured (subjective). Onset: The symptoms/episode rn began/occurred this morning. Modifying factors: there are no obvious modifying factors. Associated signs and symptoms: Pertinent positives: abdominal pain, chills, Pertinent negatives: cough, headache, hemoptysis, runny nose, shortness of breath, swelling, vomiting. Severity of symptoms: At their worst the symptoms were moderate in the emergency department the symptoms are unchanged. The patient has not experienced similar symptoms in the past. The patient has not recently seen a physician. Historical: - Allergies: 16:57 No Known Allergies; aa5 - PMHx: 16:57 Diabetes mellitus; Depressive disorder; aa5 - PSHx: 16:57 None; aa5 - Immunization history:: Pneumococcal vaccine is not up to date, Flu vaccine is up to date. - Social history:: Smoking status: Patient denies any tobacco usage or history of. - Family history:: not pertinent. - Hospitalizations: : No recent hospitalization is reported. ROS: 17:07 Constitutional: + fever and chills Eyes: Negative for injury, pain, redness, and ip technology transactions attorney, ENT: Negative for injury, pain, and discharge, Neck: Negative for injury, pain, and swelling, Cardiovascular: Negative for chest pain, palpitations, and edema, Respiratory: Negative for shortness of breath, cough, wheezing, and pleuritic chest pain, Abdomen/GI: + abd pain, negative for vomiting/diarrhea Back: Negative for injury and pain, : Negative for injury, bleeding, discharge, and swelling, MS/Extremity: Negative for injury and deformity, Skin: Negative for injury, rash, and discoloration, Neuro: Negative for headache, weakness, numbness, tingling, and seizure. Exam: 17:07 Constitutional: This is a well developed, well nourished patient who is awake, alert, rn and in no acute distress. Head/Face: Normocephalic, atraumatic. Eyes: Periorbital areas with no swelling, redness, or edema. ENT: dry MM, no stridor Neck: Trachea midline, no thyromegaly or masses palpated, and no cervical lymphadenopathy. Supple, full range of motion without nuchal rigidity, or vertebral point tenderness. No Meningismus. Cardiovascular: tachycardic, regular Respiratory: Mild tachypnea, no retractions, speaking full sentences Abdomen/GI: Soft, + RUQ/epigastric and periumbilical tenderness Skin: Warm, dry MS/ Extremity: Pulses equal, no cyanosis. Neuro: Awake and alert, GCS 15 17:07 ECG was reviewed by the Attending Physician. Vital Signs: 16:56 BP 129 / 83; Pulse 124; Resp 26 S; Temp 102.3(O); Pulse Ox 95% on R/A; Height 5 ft. 5 aa5 in. (165.10 cm) (R); 17:18 BP 155 / 85; Pulse 109; Resp 18; Weight 77.11 kg; Height 5 ft. 0 in. (152.40 cm); jh6 19:12 BP 124 / 82; Pulse 103; Resp 20; Pulse Ox 96% on R/A; tw5 19:44 Temp 99(O); tw5 17:18 Body Mass Index 33.20 (77.11 kg, 152.40 cm) jh6 MDM: 16:51 Patient medically screened. rn 18:47 Differential diagnosis: viral Infection, bacterial infection, UTI, gastroenteritis, rn pyelonephritis. Data reviewed: vital signs, nurses notes, lab test result(s), radiologic studies, CT scan, and as a result, I will admit patient. Counseling: I had a detailed discussion with the patient and/or guardian regarding: the historical points, exam findings, and any diagnostic results supporting the discharge/admit diagnosis, lab results, radiology results, the need for further work-up and treatment in the hospital. Response to treatment: the patient's symptoms have mildly improved after treatment, and as a result, I will admit patient. 08/09 17:06 Order name: Blood Culture Adult (2) rn 08/09 17:06 Order name: CBC with Diff; Complete Time: 17:57 rn 08/09 17:06 Order name: CMP; Complete Time: 17:57 rn 08/09 17:06 Order name: Lactate; Complete Time: 17:57 rn 08/09 17:06 Order name: Protime (+inr); Complete Time: 17:57 rn 08/09 17:06 Order name: Ptt, Activated; Complete Time: 17:57 rn 08/09 17:06 Order name: Urine Culture rn 08/09 17:06 Order name: Urine Microscopic Only; Complete Time: 17:57 rn 08/09 17:06 Order name: COVID-19/FLU A+B (Document "Date of Onset" if Symptomatic); Complete Time: rn 18:25 08/09 17:06 Order name: CT Abd/Pelvis - IV Contrast Only; Complete Time: 18:46 rn 08/09 17:06 Order name: US Abdomen Limited; Complete Time: 18:46 rn 08/09 17:06 Order name: Cardiac monitoring; Complete Time: 17:19 rn 08/09 17:06 Order name: EKG - Nurse/Tech; Complete Time: 17:19 rn 08/09 17:06 Order name: IV Saline Lock - Large Bore; Complete Time: 17:19 rn 08/09 17:06 Order name: Labs collected and sent; Complete Time: 17:19 rn 08/09 17:06 Order name: O2 Per Protocol; Complete Time: 17:19 rn 08/09 17:06 Order name: O2 Sat Monitoring; Complete Time: 17:19 rn EC:07 Rate is 117 beats/min. Rhythm is regular. QRS [place] is Normal. NM interval is normal. rn QRS interval is normal. QT interval is normal. No Q waves. T waves are Normal. No ST changes noted. Clinical impression: Sinus tachycardia. Interpreted by me. Reviewed by me. Administered Medications: 17:20 Drug: Acetaminophen 1000 mg Route: PO; 6 19:18 Follow up: Response: No adverse reaction tw5 17:20 Drug: NS 0.9% (30 ml/kg) 30 ml/kg Route: IV; Rate: bolus; Site: left antecubital; [facility] 18:22 Drug: Rocephin (cefTRIAXone) 1 grams Route: IV; Rate: calculated rate; Site: left [facility] antecubital; Disposition Summary: 08/09/21 18:48 Hospitalization Ordered Hospitalization Status: Inpatient Admission rn Provider: Marin, Mohammad rn Location: Telemetry/MedSurg (Inpatient) rn Condition: Stable rn Problem: new rn Symptoms: have improved rn Bed/Room Type: Standard rn Room Assignment: 231(08/09/21 20:05) cg Diagnosis - Pyelonephritis acute rn - Sepsis, unspecified organism rn Forms: - Medication Reconciliation Form rn - SBAR form rn Signatures: Dispatcher [employer] EDPolo Gabriel MD MD rn Calderon, Audri, RN RN aa5 Garima Hopson RN RN cg Hastedt, Jennifer RN RN 6 Olinda Arzate 5 Corrections: (The following items were deleted from the chart) 20:05 18:48 rn cg
--- NOTE | 2021-08-09 20:08 | P.HP ---
Certification for Inpatient Patient admitted to: Inpatient With expected LOS: <2 Midnights Patient will require the following post-hospital care: None Practitioner: I am a practitioner with admitting privileges, knowledge of patient current condition, hospital course, and medical plan of care. Services: Services provided to patient in accordance with Admission requirements found in Title 42 Section 412.3 of the Code of Federal Regulations <Jailene Mc - Last Filed: 08/09/21 20:24> Patient History Date of Service: 08/09/21 Reason for admission: Pyelonephritis/Sepsis History of Present Illness: Patient is a 66-year-old female with IDDM who presented to the ED with complaints of upper abdominal pain, fever, and chills that began this morning. She flagged sepsis with a pulse of 124, RR 26, temp 102.3 F. Work-up revealed UTI, WBC 10, lactic acid WNL. CT showed UTI and left-sided pyelonephritis without abscess. CT also incidentally found a pancreatic body mass concerning for neoplasm. Abdominal ultrasound negative. Patient was given sepsis fluids, 1 g of Rocephin, and Tylenol. Upon my assessment, patient's fever has come down to 99F and states her symptoms have improved. Patient denies any recent UTI symptoms. We will admit patient for further evaluation and treatment. Home medications list reviewed: Yes - Past Medical/Surgical History Diabetic: Yes -: Type 2 Diabetes- Insulin Dependent Past Surgical History: Patient denies surgical history Psychosocial/ Personal History: Patient lives at home alone. - Family History Brother -: Diabetes - Social History Smoking Status: Never smoker Alcohol use: No CD- Drugs: No Caffeine use: Yes Place of Residence: Home <AlexandroJailene - Last Filed: 08/09/21 20:24> Date of Service: 08/09/21 <Lobo Marin - Last Filed: 08/31/21 23:46> Review of Systems General: Fever, Chills Gastrointestinal: Abdominal Pain <AlexandroJailene - Last Filed: 08/09/21 20:24> Physical Examination - Physical Exam General: Alert, In no apparent distress, Oriented x3 HEENT: Atraumatic, PERRLA, Mucous membr. moist/pink, EOMI, Sclerae nonicteric Neck: Supple, 2+ carotid pulse no bruit, No LAD, Without JVD or thyroid abnormality Respiratory: Clear to auscultation bilaterally, Normal air movement Cardiovascular: Regular rate/rhythm, Normal S1 S2 Gastrointestinal: Normal bowel sounds, Soft and benign, No tenderness Musculoskeletal: No tenderness Integumentary: No rashes Neurological: Normal speech, Normal strength at 5/5 x4 extr, Normal tone, Normal affect - Studies Laboratory Data (last 24 hrs) 08/09/21 17:15: PT 12.7 H, INR 1.15, APTT 30.1 08/09/21 17:15: Sodium 133 L, Potassium 3.6, BUN 13, Creatinine 0.74, Glucose 167 H, Total Bilirubin 0.4, AST 16, ALT 29, Alkaline Phosphatase 91 08/09/21 17:15: WBC 10.0, Hgb 12.8, Hct 36.5, Plt Count 327 <Coreen Mcia - Last Filed: 08/09/21 20:24> Assessment and Plan - Problems (Diagnosis) (1) Pyelonephritis Status: Acute (2) Sepsis Status: Acute Qualifiers: Sepsis type: sepsis due to unspecified organism Sepsis acute organ dysfunction status: without acute organ dysfunction Qualified Code(s): A41.9 - Sepsis, unspecified organism (3) Pancreatic mass Status: Acute (4) Type 2 diabetes mellitus Status: Acute Qualifiers: Diabetes mellitus fpc insulin use: with fpc use Diabetes mellitus complication status: with kidney complications Diabetes mellitus complication detail: with chronic kidney disease Chronic kidney disease stage: stage 2 (mild) Qualified Code(s): E11.22 - Type 2 diabetes mellitus with diabetic chronic kidney disease; N18.2 - Chronic kidney disease, stage 2 (mild); Z79.4 - medical terminologist (current) use of insulin - Plan -CT showed pyelonephritis without abscess. Continue rocephin. Pend urine culture -Sepsis: cont IVF at 100 cc/hr. fever has resolved, respiratory rate improved, still tachycardic. Blood cultures drawn. -WBC borderline at 10. Monitor -ACHS accu checks with mild sliding scale insulin and diabetic diet -CT found incidental pancreatic mass concerning for malignancy. GI consulted for further work-up -Lovenox for DVT prophylaxis Discharge Plan: Home Plan to discharge in: 48 Hours - Advance Directives Does patient have a Living Will: No Does patient have a Durable POA for Healthcare: No - Code Status/Comfort Care Code Status Assessed: Yes (Full) Critical Care: No Time Spent Managing Pts Care (In Minutes): 70 <Jailene Mc - Last Filed: 08/09/21 20:24> Date of Service: 08/09/21 Subjective: HPI as mentioned above Physical Examination: Vitals: Afebrile vital signs are stable Physical exam: Cardiovascular: Within normal limits. Lungs: Within normal limits Abdomen: Within normal limits Neuro: Awake, alert, oriented to person place and time Assessment: 1. Pyelonephritis Plan: 1. Continue with current plan of care as mentioned above <Lobo Marin - Last Filed: 08/31/21 23:46>
[2021-08-09] MEDS ORDERED: ONDANSETRON 4 MG/2 ML VIAL IV PRN (21:14)
[2021-08-09] MEDS ORDERED: ACETAMINOPHEN 500 MG TAB PO PRN (21:14)
[2021-08-09] MEDS: INSULIN -REGULAR HUMAN 50 UNIT/0.5 ML ML SQ SCH (21:14)
[2021-08-09] MEDS ORDERED: KETOROLAC 30 MG/ML INJ IV PRN (21:14)
[2021-08-09 22:18] VITALS: O2SAT 96
[2021-08-09 22:50] VITALS: BMI 28.6
[2021-08-09] MEDS: NA CHLORIDE 0.9% 1,000 ML IV SCH (22:51)
[2021-08-10 00:14] LABS: Urine Appearance TURBID (Clear); Urine Bilirubin Negative (Negative); Urine Blood 3+ (Negative); Urine Color Yellow (Yellow); Urine Glucose Negative (Negative); Urine Protein 1+ (Negative)
[2021-08-10 00:15] LABS: Urine Microscopic Reflex ORDER UMIC
[2021-08-10 00:19] LABS: Urine Bacteria <20 /HPF (<20); Urine RBC 20-50 /HPF (NONE SEEN); Urine Urothelial Cells <5 /HPF (NONE SEEN)
[2021-08-10 05:51] LABS: Absolute Lymphocytes (CBC) 1.7 K/uL (0.7-4.9); Hematocrit 39.2 % (36.0-45.0); Lymphocytes % 14.3 % (15.3-44.8); MPV 7.8 fL (7.6-11.3); RBC Red Blood Cell Count 4.51 M/uL (3.86-4.86)
[2021-08-10 06:01] LABS: BUN Blood Urea Nitrogen 9 mg/dL (7-18); Bicarbonate 26 mmol/L (21-32); Glomerular Filtration Rate > 90 mL/min (=/>90); Glucose Level 145 mg/dL (74-106); Magnesium 2.2 mg/dL (1.8-2.4); Phosphorus 3.8 mg/dL (2.5-4.9); Potassium 4.3 mmol/L (3.5-5.1); Sodium Level 135 mmol/L (136-145)
[2021-08-10] MEDS: INSULIN -REGULAR HUMAN 50 UNIT/0.5 ML ML SQ SCH ×4 (07:30→20:53)
[2021-08-10] MEDS ORDERED: PNEUMOCOCCAL VACCINE 0.5 ML IMVAC ONE (08:00)
[2021-08-10] MEDS: NA CHLORIDE 0.9% 1,000 ML IV SCH ×2 (08:14→17:11)
[2021-08-10] MEDS: ENOXAPARIN 40 MG/0.4 ML SQ SCH (08:14)
[2021-08-10] MEDS ORDERED: CEFTRIAXONE 1,000 MG in NA CHLORIDE 0.9% 50 ML IVPB SCH (17:00)
--- NOTE | 2021-08-10 19:31 | RAD REPORT ---
EXAM DESCRIPTION: MRI - Cholangiogram - 08/10/2021 7:02 pm CLINICAL HISTORY: mass COMPARISON: Abdomen Pelvis W Contrast dated 08/09/2021 FINDINGS: Three-dimensional MRCP was performed using maximum intensity projection reconstruction on the same work station. No intrahepatic biliary tree dilatation is seen. The common bile duct is normal caliber without evide nce of retained stone, stricture or mass. The pancreatic duct is not well seen. It is identified down by the ampulla and a short-segment at the neck but otherwise is not visualized. By the ampulla its m ild dilated measuring 3 millimeters. Again noted is the oblong mass measuring 5.2 cm at the pancreati c body. The pancreatic tail is atrophic. The gallbladder is unremarkable. Limited T2 sequences through the abdomen demonstrates no bulky adenopathy, significant free fluid or abscess. IMPRESSION: Similar findings as noted on the CT from 08/09/2021. [place] pancreatic body mass which a ppears circumscribed. Much of the pancreatic duct is not visualized except near the ampulla and a daphney y short segment at the pancreatic neck. This remains concerning for neoplasm and ERCP/EUS is recommen ded for further evaluation.
[2021-08-11] MEDS: NA CHLORIDE 0.9% 1,000 ML IV SCH ×3 (03:14→13:14)
[2021-08-11 06:15] LABS: Absolute Lymphocytes (CBC) 1.4 K/uL (0.7-4.9); Hematocrit 34.2 % (36.0-45.0); Lymphocytes % 13.2 % (15.3-44.8); MPV 7.4 fL (7.6-11.3); RBC Red Blood Cell Count 3.91 M/uL (3.86-4.86)
[2021-08-11 06:27] LABS: BUN Blood Urea Nitrogen 11 mg/dL (7-18); Bicarbonate 26 mmol/L (21-32); Glomerular Filtration Rate > 90 mL/min (=/>90); Glucose Level 146 mg/dL (74-106); Potassium 3.4 mmol/L (3.5-5.1); Sodium Level 138 mmol/L (136-145)
[2021-08-11] MEDS: INSULIN -REGULAR HUMAN 50 UNIT/0.5 ML ML SQ SCH ×2 (07:30→11:30)
[2021-08-11] MEDS: ENOXAPARIN 40 MG/0.4 ML SQ SCH (09:18)
[2021-08-11 12:30] VITALS: BP 133/61; TEMP 97.7
--- NOTE | 2021-08-11 14:36 | EKG ---
Test Date: 2021-08-09 Test Time: 17:07:48 Upsetting Machine Operator: CYNTHIA MEASUREMENT RESULTS: Intervals: Rate: 117 RI: 152 QRSD: 74 QT: 302 QTc: 421 [place]: P: 55 RI: 152 QRS: 14 T: 29 INTERPRETIVE STATEMENTS: Sinus tachycardia Otherwise normal ECG Compared to ECG 05/31/2004 09:04:00 Sinus rhythm no longer present Electronically Signed On 08-11-21 14:32:36 CDT by Anders Lin
--- NOTE | 2021-09-01 02:41 | P.PN ---
Date of Service: 08/10/21 Subjective Patient's pain is improving. Continue with antibiotic therapy. Physical Examination - Physical Exam General: Alert, In no apparent distress, Oriented x3 Respiratory: Clear to auscultation bilaterally, Normal air movement Cardiovascular: Regular rate/rhythm, Normal S1 S2 Gastrointestinal: Normal bowel sounds, Soft and benign, No tenderness Neurological: Normal speech, Normal strength at 5/5 x4 extr, Normal tone, Normal affect Assessment and Plan - Problems (Diagnosis) (1) Pyelonephritis Status: Acute (2) Sepsis Status: Acute Sepsis type: sepsis due to unspecified organism Sepsis acute organ dysfunction status: without acute organ dysfunction Qualified Code(s): A41.9 - Sepsis, unspecified organism (3) Pancreatic mass Status: Acute (4) Type 2 diabetes mellitus Status: Acute Diabetes mellitus lobsterman insulin use: with retirement use Diabetes mellitus complication status: with kidney complications Diabetes mellitus complication detail: with chronic kidney disease Chronic kidney disease stage: stage 2 (mild) Qualified Code(s): E11.22 - Type 2 diabetes mellitus with diabetic chronic kidney disease; N18.2 - Chronic kidney disease, stage 2 (mild); Z79.4 - intermission coordinator (current) use of insulin - Plan -Continue rocephin -Continue IVFs -Monitor WBC -ACHS accu checks with mild sliding scale insulin and diabetic diet -CT found incidental pancreatic mass concerning for malignancy. GI consulted for further work-up -Lovenox for DVT prophylaxis
--- NOTE | 2021-09-01 02:42 | P.DS ---
Discharge Date: 08/11/21 Disposition: ROUTINE DISCHARGE Discharge Condition: GOOD Reason for Admission: Pyelonephritis/Sepsis Brief History of Present Illness: Patient is a 66-year-old female with IDDM who presented to the ED with complaints of upper abdominal pain, fever, and chills that began this morning. She flagged sepsis with a pulse of 124, RR 26, temp 102.3 F. Work-up revealed UTI, WBC 10, lactic acid WNL. CT showed UTI and left-sided pyelonephritis without abscess. CT also incidentally found a pancreatic body mass concerning for neoplasm. Abdominal ultrasound negative. Patient was given sepsis fluids, 1 g of Rocephin, and Tylenol. Upon my assessment, patient's fever has come down to 99F and states her symptoms have improved. Patient denies any recent UTI symptoms. We will admit patient for further evaluation and treatment. Hospital Course: Patient has done well during hospitalization. We will continue with antibiotic therapy. Patient will be changed to oral antibiotics and we will plan to d ischarge home with outpatient follow-up. Vital Signs/Physical Exam: Temp Pulse Resp BP Pulse Ox 97.7 F 90 16 133/61 99 08/11/21 12:00 08/11/21 12:00 08/11/21 12:00 08/11/21 12:00 08/11/21 12:00 General: Alert, In no apparent distress, Oriented x3 Laboratory Data at Discharge: WBC 10.6 K/uL (4.3-10.9) 08/11/21 05:46 Hgb 11.7 g/dL (12.0-15.0) L 08/11/21 05:46 Hct 34.2 % (36.0-45.0) L 08/11/21 05:46 Plt Count 312 K/uL (152-406) 08/11/21 05:46 PT 12.7 SECONDS (9.5-12.5) H 08/09/21 17:15 INR 1.15 08/09/21 17:15 APTT 30.1 SECONDS (24.3-36.9) 08/09/21 17:15 Sodium 138 mmol/L (136-145) 08/11/21 05:46 Potassium 3.4 mmol/L (3.5-5.1) L 08/11/21 05:46 BUN 11 mg/dL (7-18) 08/11/21 05:46 Creatinine 0.49 mg/dL (0.55-1.3) L 08/11/21 05:46 Glucose 146 mg/dL (74-106) H 08/11/21 05:46 Phosphorus 3.8 mg/dL (2.5-4.9) 08/10/21 05:36 Magnesium 2.2 mg/dL (1.8-2.4) 08/10/21 05:36 Total Bilirubin 0.4 mg/dL (0.2-1.0) 08/09/21 17:15 AST 16 U/L (15-37) 08/09/21 17:15 ALT 29 U/L (12-78) 08/09/21 17:15 Alkaline Phosphatase 91 U/L (45-117) 08/09/21 17:15 Home Medications: Aspirin [Riccardo Chewable Aspirin] 1 tab PO DAILY 08/09/21 Citalopram [Celexa*] 1 tab PO DAILY 08/09/21 Gabapentin 1 cap PO TID 08/09/21 Insulin 70/30 NPH/Reg Human [Novolin 70/30*] 1 unit SQ SEECOM 08/09/21 Metformin HCl 1 tab PO BID 08/09/21 Vit D3 2000 Units 1 tab PO DAILY 08/09/21 Smz./Tmp. [Bactrim Ds 800 MG/160 MG] 1 tab PO BID #14 tab 08/11/21 New Medications: Smz./Tmp. [Bactrim Ds 800 MG/160 MG] 1 tab PO BID #14 tab Physician Discharge Instructions: -DC IV and DC home -Follow-up with PCP in 1 to 2 weeks -Follow-up with GI in 1 to 2 weeks -Please call Dr. Marin at [phone] if any questions regarding hospital stay -Please call nursing station at [phone] if any nursing or medication questions -Return to the emergency room if symptoms worsen Diet: low fat Activity: Fall precautions Followup: Daryl Thomas MD [Primary Care Provider] - Herman Guy MD [OUTSIDE PHYSICIAN] - Time spent managing pt's care (in minutes): 35
== END 2021-08-11 15:00 | disposition home or self-care (01) | DRG 872 ==
LOC: ER 16:42 → ERHOLD 19:56 → 2ND 20:21
PROVIDERS: ADMIT Hospitalist; ATTEND Hospitalist
DX: A41.9 Sepsis, unspecified organism (principal); N10 Acute pyelonephritis; E11.22 Type 2 diabetes mellitus with diabetic chronic kidney disease; N18.2 Chronic kidney disease, stage 2 (mild); F32.A Depression, unspecified; D37.8 Neoplasm of uncertain behavior of other specified digestive organs; Z20.822 Contact with and (suspected) exposure to COVID-19; Z79.4 Long term (current) use of insulin
CPT/HCPCS: 0240U; 36415; 74177; 74181; 76705; 80048; 80053; 81003; 81015; 82947; 83605; 83735; 84100; 85025; 85610; 85730; 87040; 87077; 87086; 87088; 87186; 90471; 90732; 93005; 96374; 96375; 99285; J1650; J1815; J7030; Q9967

== ENCOUNTER 2024-03-04 17:54 | Emergency (ER) | payer OTHER ==
--- OUTSIDE RECORDS SUMMARY | 2024-03-04 17:59 | XMS REPORT | Clinical Summary ---
Author Name Unknown Organization [facility] Address [address] [place] [address] Care Team Providers Care National Account Manager Name Role Phone Kamilla Bernard MD Primary Care Provider Hailee Thomas MD Unavailable [phone] Diane Pinto RN Unavailable Leigh Mcclain MD Unavailable Jorge Alberto Johnson MD Unavailable Rosario Gregg MD Unavailable [phone] Scott Gonzalez MD Unavailable Jorje Morales MD Unavailable Jessica Mathews RN Unavailable [phone] Allergies Active Allergy Reactions Criticality Noted Date Comments Gadolinium-Containing Contrast Media 05/10/2023 Pt reports discomfort/increased sensitivity with MRI contrast on 05/03/23. Medications * This document contains information received from the source organization and may not represent a complete record from that organization. citalopram (CeleXA) 10 mg tablet daily. 022 Active gabapentin (NEURONTIN) 400 mg capsule 1 capsule (400 mg) 3 (three) times a day. 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 8 capsule 023 Active Additional Information Patient not taking.Reason: No longer taking, Reported on 01/20/2024 blood sugar diagnostic (Accu-Chek Guide test strips) strpIndications :Type 2 diabetes mellitus with hyperglycemia USE TO CHECK BLOOD GLUCOSE 4 TIMES DAILY 400 strip 1 024 Active lancets (Accu-Chek Softclix Lancets) miscIndications :Type 2 diabetes mellitus with hyperglycemia USE TO CHECK GLUCOSE 4 TIMES DAILY 400 each 1 024 Active acetaminophen (TYLENOL) 500 mg tabletIndicatio ns:Adenocarcino ma of pancreas Take 2 tablets (1,000 mg) by mouth every 6 (six) hours. 120 tablet 07/29/19 24 10:53 AM CDT 024 Active pantoprazole (PROTONIX) 40 mg EC tabletIndicatio ns:Adenocarcino ma of pancreas Take 1 tablet (40 mg) by mouth every morning before breakfast. 90 tablet 3 07/29/19 24 10:53 AM CDT 024 Active insulin glargine U-300 conc (Toujeo SoloStar U-300 Insulin) 300 unit/mL (1.5 mL) insulin penIndications: Type 2 diabetes mellitus with hyperglycemia Inject 14 Units under the skin daily. Follow as per the discharge instructions 18 mL 2 024 Active Additional Information Patient taking differently: 42 Unitssubcutaneous Daily, Follow as per the discharge instructions, Reason: Other, Reported on 01/20/2024 insulin aspart, niacinamide, (Fiasp FlexTouch U-100 Insulin) 100 unit/mL (3 mL) inpnIndications :Type 2 diabetes mellitus with hyperglycemia Inject 0-14 Units under the skin 3 (three) times a day before meals. Please follow the discharge instructions 81 mL 3 04/22/2 024 Active Additional Information Patient taking differently: 2-10 Unitssubcutaneous 3 times daily before meals,Please follow the discharge instructions plus 1:8 carb ratio, Reason: Other, Reported on 09/18/2023 cholecalciferol , vitamin D3, 50 mcg (2,000 unit) capsule Take 2,000 Units by mouth daily. Active pancrelipase (CREON) 12,000 units-38,000 units-60,000 units capsuleIndicati ons:Adenocarcin carey of pancreas Take 2 capsules (24,000 Units) by mouth 3 (three) times a day with meals. Take 1 capsule by mouth as needed with snacks. Can take 8/day. 800 capsule 3 01/20/20 24 8:33 AM CDT 024 Active atorvastatin (LIPITOR) 80 mg tablet Take 1 tablet (80 mg) by mouth at bedtime. 023 Active pen needle, diabetic 32 gauge x 5/32" ndleIndications :Type 2 diabetes mellitus with hyperglycemia USE TO INJECT INSULIN FOUR TO four TIMES DAILY 400 each 3 024 Active insulin lispro (HumaLOG U-100 Insulin) 100 units/mL injectionIndica tions:Type 1 diabetes mellitus with hyperglycemia,L familia-term (current) use of insulin Inject 50 Units under the skin continuous. Via insulin pump 45 mL 3 024 Active metFORMIN (GLUCOPHAGE) 1000 mg tablet Take 1 tablet (1,000 mg) by mouth twice daily. 07/28 Discontinued( Stop Taking at Discharge) multivitamin capsule Take 1 capsule by mouth daily. 09/26 Discontinued( Therapy completed) atorvastatin (LIPITOR) 80 mg tablet Take 1 tablet (80 mg) by mouth at bedtime. 09/26 Discontinued( Therapy completed) insulin glargine U-300 conc (Toujeo SoloStar U-300 Insulin) 300 unit/mL (1.5 mL) insulin penIndications: Type 2 diabetes mellitus with hyperglycemia Inject 36-50 Units under the skin daily. May substitute using Tresiba, Tresiba U-200, Lantus, Basaglar, Semglee, Toujeo, Levemir. Dispense brand preferred by insurance. Page if patient can't afford [phone] 45 mL 3 023 06/17 Discontinued( Reorder) insulin aspart, niacinamide, (Fiasp FlexTouch U-100 Insulin) 100 unit/mL (3 mL) inpnIndications :Type 2 diabetes mellitus with hyperglycemia Inject 12-20 Units under the skin 3 (three) times a day before meals. May substitute using Lispro, Humalog, Humalog U-200, Lumjev, Admelog, Novolog, FiAsp, Aspart, or Apidra. Dispense brand preferred by insurance that costs the least. Page if patient can't afford [phone] 60 mL 3 023 06/04 Discontinued blood sugar diagnostic (glucose blood) strpIndications :Type 2 diabetes mellitus with hyperglycemia Check blood sugar 4 times daily. Dx code E11.65, Z79.4. Dispense relion brand 400 strip 3 023 06/18 Discontinued lancets miscIndications :Type 2 diabetes mellitus with hyperglycemia Check blood sugar 4 times daily. Dx code E11.65, Z79.4. Dispense relion brand 400 each 3 023 06/18 Discontinued pen needle, diabetic 32 gauge x 5/32" ndleIndications :Type 2 diabetes mellitus with hyperglycemia USE TO INJECT INSULIN FOUR TO SIX TIMES DAILY 400 each 1 023 01/19 Discontinued( Reorder) insulin aspart, niacinamide, (Fiasp FlexTouch U-100 Insulin) 100 unit/mL (3 mL) inpnIndications :Type 2 diabetes mellitus with hyperglycemia Inject 18-30 Units under the skin 3 (three) times a day before meals. May substitute using Lispro, Humalog, Humalog U-200, Lumjev, Admelog, Novolog, FiAsp, Aspart, or Apidra. Dispense brand preferred by insurance that costs the least. 81 mL 3 024 07/28 Discontinued( Reorder) insulin glargine U-300 conc (Toujeo SoloStar U-300 Insulin) 300 unit/mL (1.5 mL) insulin penIndications: Type 2 diabetes mellitus with hyperglycemia Inject 54 Units under the skin daily. May substitute using Tresiba, Tresiba U-200, Lantus, Basaglar, Semglee, Toujeo, Levemir. Dispense brand preferred by insurance. Page if patient can't afford [phone] 49 mL 3 024 06/18 Discontinued insulin glargine U-300 conc (Toujeo SoloStar U-300 Insulin) 300 unit/mL (1.5 mL) insulin penIndications: Type 2 diabetes mellitus with hyperglycemia INJECT 36 TO 50 UNITS SUBCUTANEOUSLY ONCE DAILY 18 mL 2 024 07/28 Discontinued( Reorder) celecoxib (CeleBREX) 100 mg capsuleIndicati ons:Adenocarcin carey of pancreas Take 1 capsule (100 mg) by mouth twice daily. 28 capsule 07/29/19 24 10:53 AM CDT 024 08/11 Discontinued( Reorder) senna-docusate (SENOKOT-S) 8.6 mg-50 mg tabletIndicatio ns:Adenocarcino ma of pancreas Take 2 tablets by mouth 2 (two) times a day as needed for constipation. 120 tablet 07/29/19 24 10:53 AM CDT 024 09/26 Discontinued( Therapy completed) potassium & sodium phosphates (K-PHOS #2) 305 mg-700 mg (250 mg elemental phosphorus) tabletIndicatio ns:Adenocarcino ma of pancreas Take 2 tablets by mouth twice daily. 12 tablet 07/29/19 24 10:53 AM CDT 024 09/26 Discontinued( Therapy completed) methocarbamol (ROBAXIN) 500 mg tabletIndicatio ns:Adenocarcino ma of pancreas Take 1 tablet (500 mg) by mouth every 6 (six) hours. 56 tablet 07/29/19 24 10:53 AM CDT 024 10/27 Discontinued( Therapy completed) metoclopramide (REGLAN) 5 mg tabletIndicatio ns:Adenocarcino ma of pancreas Take 1 tablet (5 mg) by mouth 3 (three) times a day before meals. 42 tablet 07/29/19 24 10:53 AM CDT 024 08/11 Discontinued( Reorder) pancrelipase (CREON) 12,000 units-38,000 units-60,000 units capsuleIndicati ons:Adenocarcin carey of pancreas Take 2 capsules (24,000 Units) by mouth 3 (three) times a day with meals. Take 1 capsule by mouth as needed with snacks. 210 capsule 07/29/19 24 10:53 AM CDT 024 08/28 Discontinued( Reorder) enoxaparin (LOVENOX) 40 mg/0.4 mL prefilled syringeIndicati ons:Adenocarcin carey of pancreas Inject 0.4 mL (40 mg) under the skin daily. 20 each 07/29/19 24 10:53 AM CDT 024 09/26 Discontinued( Therapy completed) glucagon 1 mg injectionIndica tions:Type 2 diabetes mellitus with hyperglycemia Inject 1 mL (1 mg) under the skin once for 1 dose. 1 each 024 07/28 Discontinued( Reorder) glucagon 1 mg injectionIndica tions:Type 2 diabetes mellitus with hyperglycemia Inject 1 mL (1 mg) under the skin as needed for low blood sugar. 1 each 024 09/26 Discontinued( Therapy completed) glucagon (Baqsimi) 3 mg/actuation nasal inhalerIndicati ons:Type 1 diabetes mellitus with hyperglycemia 1 Inhaler (3 mg) by intranasal route as needed (For low blood sugar, please see the instructions). Monarch 1 dose (3 mg) into one nostril for hypoglycemia. If there has been no response after 15 minutes, an additional 3 mg dose from a new inhaler may be administered while waiting for emergency assistance. 2 each 1 024 09/26 Discontinued( Therapy completed) celecoxib (CeleBREX) 100 mg capsuleIndicati ons:Adenocarcin carey of pancreas Take 1 capsule (100 mg) by mouth twice daily. 60 capsule 024 09/26 Discontinued( Therapy completed) metoclopramide (REGLAN) 5 mg tabletIndicatio ns:Adenocarcino ma of pancreas Take 1 tablet (5 mg) by mouth 3 (three) times a day before meals. 90 tablet 024 09/26 Discontinued( Therapy completed) pancrelipase (CREON) 12,000 units-38,000 units-60,000 units capsuleIndicati ons:Adenocarcin carey of pancreas Take 2 capsules (24,000 Units) by mouth 3 (three) times a day with meals. Take 1 capsule by mouth as needed with snacks. 210 capsule 024 09/26 Discontinued( Reorder) pancrelipase (CREON) 12,000 units-38,000 units-60,000 units capsuleIndicati ons:Adenocarcin carey of pancreas Take 2 capsules (24,000 Units) by mouth 3 (three) times a day with meals. Take 1 capsule by mouth as needed with snacks. 100 capsule 12 024 01/14 Discontinued( Reorder) insulin aspart, niacinamide, (Fiasp U-100 Insulin) 100 unit/mL solnIndications :Type 1 diabetes mellitus with hyperglycemia,L familia-term (current) use of insulin Inject 50 Units under the skin daily. Via insulin pump 20 mL 6 024 02/27 Discontinued( Alternate therapy) Active Problems Patient Care Coordination No te Formatting of this note migh t be different from the original. Note from Endocrinology: This patient has Type 1 Diabetes. Pt NEEDS basal insulin at all times, either in the form of an insulin DRIP or long-acting AND short acting subcutaneous insulin or continuous insulin infusion through the insulin pump. Patients with Type 1 Diabetes do not make any insulin. If they are not receiving insulin or are not absorbing it properly, they can develop a life-threatening condition: diabetic ketoacidosis. If this patient is admitted to the hospital, please place an URGENT consult to Endocrine-Diabetes service team A with [id number] communication. Do NOT hold this patient's insulin without notifying Endocrinology-Diabetes team. 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 07/03/2023 History of partial pancreatectomy 07/03/2023 Adenocarcinoma of pancreas 05/14/2023 Pancreas cancer 11/20/2021 Cancer Staging:Pathologic:Stage IA(pT1a, pN0, cM0) - Signed by Zeenat Aguiar NP on 11/20/2021 Long-term (current) use of insulin 11/10/2021 H/O: hypertension 10/11/2021 Mixed hyperlipidemia 10/03/2021 Hypertension 10/03/2021 Intraductal papillary mucinous neoplasm of pancr eas 09/28/2021 Overview (09/28/2021): High grade dysplasia History of recurrent urinary tract infection 04/2021 Neuropathy 04/08/2020 Type 1 diabetes mellitus with hyperglycemia 04/2018 Depressive disorder 04/08/2012 Other acute postoperative pain Encounters * This document contains information received from the source organization and may not represent a complete record from that organization. Date Type Department Care Team Description 03/03/2024 8:00 AM FOOD SERVICE CLERK Telephone [facility] [address] [place] [address], 6th [place] [address] Tee Salas MD Palma, Denise A, KEITH 02/28/2024 9:00 AM FOOD SERVICE CLERK Clinical Support Endocrine [address], 6th [place] [address] Tee Salas MD Palma, Denise A, KEITH Type 1 diabetes mellitus with hyperglycemia 02/28/2024 Orders Only Endocrine [address], 6th [place] [address] Ruben Amato APRN Type 1 diabetes mellitus with hyperglycemia (Primary Dx); Long-term (current) use of insulin 02/28/2024 Travel 02/24/2024 9:00 AM FOOD SERVICE CLERK Clinical Support Endocrine [address], 6th [place] [address] Tee Salas MD Palma, Denise A, RD Type 1 diabetes mellitus with hyperglycemia 02/24/2024 Travel 02/13/2024 Orders Only Endocrine [address], 6th [place] [address] Ruben Amato APRN Type 1 diabetes mellitus with hyperglycemia (Primary Dx); Long-term (current) use of insulin 02/13/2024 Orders Only [facility] [address] [place] [address], 6th [place] [address] Type 1 diabetes mellitus with hyperglycemia (Primary Dx) 02/06/2024 Documentation [facility] [address] [place] [address], 6th [place] [address] Amparo Camargo RN 02/06/2024 Orders Only [facility] [address] [place] [address], 6th [place] [address] Ruben Amato APRN 01/31/2024 [facility]ation [facility] [address] [place] [address], 7th [place] [address] Kaia Young 01/29/2024 Documentation [facility] [address] [place] [address], 6th [place] [address] Amparo Camargo RN 01/20/2024 11:00 AM CDT Follow-Up [facility] [address] [place] [address], 6th [place] [address] Tee Salas MD Type 1 diabetes mellitus with hyperglycemia (Primary Dx); Long-term (current) use of insulin; Mixed hyperlipidemia; Hypertension; Fatty liver 01/20/2024 8:06 AM CDT - 01/20/2024 11:59 PM CDT Hospital Encounter [facility] [address] [place] [address], [facility] [place] [address] Tee Salas MD Type 1 diabetes mellitus with hyperglycemia; Long-term (current) use of insulin Discharge Disposition: Home 01/20/2024 Refill [facility] [address] [place] [address], 6th [place] [address] Amparo Camargo RN Type 2 diabetes mellitus with hyperglycemia 01/20/2024 Travel 01/15/2024 Orders Only [facility] [address] [place] [address], 7th [place] [address] Zeenat Mercado APRN Adenocarcinoma of pancreas 01/08/2024 1:45 PM CDT Telephone [facility] [address] [place] [address] Main [facility], 6th [place] [address] Kamilla Bernard MD Palma, Denise A, RD 01/08/2024 Orders Only [facility] [address] [place] [address], 6th [place] [address] Ruben Amato APRN Type 1 diabetes mellitus with hyperglycemia (Primary Dx); Long-term (current) use of insulin 01/01/2024 9:30 AM CDT Nutrition Clinical Nutrition For your Nutrition appointment location directions please call: Yudy Butler PA Roberts, Mary K, RD Adenocarcinoma of pancreas; History of total pancreatectomy 01/01/2024 9:00 AM CDT [facility] [address] [place] [address], 7th [place] [address] Leigh Mcclain MD Adenocarcinoma, NOS of head of pancreas (Primary Dx); Adenocarcinoma of pancreas; Intraductal papillary mucinous neoplasm of pancreas; Dietary counseling; History of total pancreatectomy 01/01/2024 Travel 12/31/2023 7:49 AM CDT - 12/31/2023 11:59 PM CDT Hospital Encounter Main CT IMAGING [address] [place] [address], 3rd [place] [address] Yudy Butler PA Adenocarcinoma of pancreas Discharge Disposition: Home 12/31/2023 7:34 AM CDT - 12/31/2023 7:48 AM CDT Hospital Encounter [facility] [address] [place] [address], [place] [address] Yudy Butler PA Adenocarcinoma of pancreas Discharge Disposition: Home 12/23/2023 Orders Only [facility] [address] [place] [address], 7th [place] [address] Zeenat Mercado APRN 12/01/2023 Orders Only [facility] [address] [place] [address], 7th [place] [address] Zeenat Mercado APRN Adenocarcinoma of pancreas (Primary Dx) 11/29/2023 12:00 PM CDT Telemedicine MD [facility] - [facility] Surgery [address] [place] [address] Leigh Mcclain MD Adenocarcinoma of pancreas (Primary Dx) 11/04/2023 Orders Only [facility] Main Bldg, 7th [place] [address] Yudy Butler PA 10/31/2023 Documentation [facility] [address] [place] [address] Main Bldg, 6th [place] [address] Tee Salas MD 10/28/2023 9:30 AM CDT Telemedicine [facility] [address] [place] [address] Main Bldg, 7th [place] [address] Yudy Butler PA Tzeng, Ching-Wei, MD Adenocarcinoma of pancreas 10/28/2023 Orders Only [facility] [address] [place] [address] Main Bldg, 7th [place] [address] Yudy Butler PA Adenocarcinoma of pancreas (Primary Dx); History of total pancreatectomy 10/21/2023 9:30 AM CDT Telephone [address] Main Bldg, 6th [place] [address] Tee Salas MD Palma, Denise A, KEITH 10/04/2023 9:00 AM CDT Clinical Support [facility] [address] [place] [address] Main Bldg, 7th [place] [address] Yudy Butler PA Rodriguez, Hannah N RN H/O splenectomy 10/04/2023 Travel 10/04/2023 Orders Only [facility] [address] [place] [address] Main Bldg, 7th [place] [address] Yudy Butler PA H/O splenectomy (Primary Dx) 10/03/2023 Orders Only [facility] [address] [place] [address], 7th [place] [address] Yudy Butler PA H/O splenectomy (Primary Dx) 10/03/2023 Documentation Endocrine [address], 6th [place] [address] Tee Salas MD 09/27/2023 1:30 PM CDT Telemedicine [facility] [address] [place] [address], [address] [place], [place] [address]ator [place] [address] Leigh Mcclain MD Adenocarcinoma of pancreas (Primary Dx); Adenocarcinoma, NOS of head of pancreas; Intraductal papillary mucinous neoplasm of pancreas 09/27/2023 Orders Only [facility] [address] [place] [address], [address] [place], [place] [address] [address] Yudy Butler PA Adenocarcinoma of pancreas (Primary Dx) 09/27/2023 Telephone Gastro[facility] [address], [facility] [place] [address] Ary Paige RN 09/26/2023 11:30 AM CDT Nutrition Clinical Nutrition For your Nutrition appointment location directions please call: Kamilla Bernard MD Roberts, Mary K, RD 09/26/[address] [address] Jessica Mathews, RN TCM Follow Up 09/18/2023 10:15 AM CDT Follow-Up [address], [facility] [place] [place] [address] Tee Salas MD Type 1 diabetes mellitus with hyperglycemia (Primary Dx); Long-term (current) use of insulin; Mixed hyperlipidemia 09/18/2023 9:30 AM CDT Clinical Support [address], [address] [place] [address] Tee Salas MD Palma, Denise A, RD Type 1 diabetes mellitus with hyperglycemia 09/18/2023 7:32 AM CDT - 09/18/2023 11:59 PM CDT Hospital Encounter [facility] [address] [place] [address], [place] [address] Ruben Amato APRN Type 2 diabetes mellitus with hyperglycemia; Long-term (current) use of insulin; Mixed hyperlipidemia Discharge Disposition: Home 09/18/2023 Travel 09/13/2023 8:30 AM CDT Telephone [facility] [address] [place] [address], 6th [place] [address] Tee Salas MD Palma, Denise A, KEITH 09/11/2023 Orders Only [facility] Medicine [facility] Rehabilitation [address] [place] [address] east of the [address] entrance, Room [address] [place] [address] Kirsten Monzon RN Exercise counseling (Primary Dx) 09/09/2023 8:30 AM CDT Telephone [facility] [address] [place] [address], 6th [place] [address] eTe Salas MD Palma, Denise A, KEITH 09/04/2023 8:00 AM CDT Telephone [facility] [address] [place] [address], 6th [place] [address] Tee Salas MD Palma, Denise A, KEITH 09/02/2023 Telephone [facility] [address] [place] [address], 7th [place] [address] Hector Alannarozina 08/30/2023 8:00 AM CDT Telephone [facility] [address] [place] [address], 6th [place] [address] Tee Salas MD Palma, Denise A, KEITH 08/30/2023 Orders Only [facility] [address] [place] [address], 7th [place] [address] Yudy Butler PA Adenocarcinoma of pancreas (Primary Dx) 08/29/2023 Orders Only [facility] Main Bldg, 7th [place] [address] Yudy Butler PA Adenocarcinoma of pancreas 08/28/2023 3:00 PM CDT Nutrition Clinical Nutrition For your Nutrition appointment location directions please call: Zeenat Mercado APRN Roberts, Mary K, RD Intraductal papillary mucinous neoplasm of pancreas 08/28/2023 2:00 PM CDT Follow-Up [facility] Main Bldg, 7th [place] [address] Leigh Mcclain MD Intraductal papillary mucinous neoplasm of pancreas 08/28/2023 Travel 08/27/2023 7:50 AM CDT Ancillary Procedure [facility] [address] [place] [address] Zeenat Mercado APRN Intraductal papillary mucinous neoplasm of pancreas 08/27/2023 Travel 08/26/2023 8:00 AM CDT Telephone [facility] [address] [place] [address] Main dg, 6th [place] [address] Tee Salas MD Palma, Denise A, RD 08/23/2023 8:30 AM CDT Telephone [facility] [address] [place] [address] Main Bldg, 6th [place] [address] Rosario Valdez PA Palma, Denise A, RD 08/23/2023 Orders Only Endocrine Center [facility] Main Bldg, 6th [place] [address] Carley Morgan, KEITH Type 1 diabetes mellitus with hyperglycemia (Primary Dx) 08/22/2023 Orders Only [facility] Main Bldg, 7th [place] [address] Buster Nichole, KRISTINE Adenocarcinoma of pancreas (Primary Dx); Postpancreatectomy hypoinsulinemia 08/22/2023 Telephone [facility] [address] [place] [address] Main Bldg, 6th [place] [address] Shira Sanchez, RN Blood Sugar Problem 08/20/2023 2:00 PM CDT Telephone [facility] [address] [place] [address], 6th [place] [address] Kamilla Bernard MD Palma, Denise A, KEITH 08/20/2023 Telephone [facility] [address] [place] [address], 7th [place] [address] Heather Urias RN 08/15/2023 4:00 PM CDT Telephone Endocrine [address], [facility] [place] [address] Macario Peterson, Fatuma Lizama, KEITH 08/13/2023 2:00 PM CDT Telemedicine [facility] Surgical Oncology [address] [place] [address], [facility] [place] [address] Leigh Mcclain MD History of partial pancreatectomy (Primary Dx); Intraductal papillary mucinous neoplasm of pancreas; Adenocarcinoma of pancreas 08/12/2023 Orders Only [facility] [address] [place] [address], 7th [place] [address] Zeenat Mercado APRN Adenocarcinoma of pancreas 08/12/2023 Telephone [facility] [address] [place] [address], [facility] [place] [address] Ene Emmanuel RN 08/09/2023 Documentation [facility] [address] [place] [address], [facility] [place] [address] Tee Salas MD 08/09/2023 Documentation [facility] [address] [place] [address], [facility] [place] [address] Ruben Amato APRN 08/08/2023 9:30 AM CDT Nutrition Clinical Nutrition For your Nutrition appointment location directions please call: Lori Hall APRN Roberts, Mary K, KEITH Intraductal papillary mucinous neoplasm of pancreas 08/07/2023 2:30 PM CDT Telemedicine [facility] [address] [place] [address] Main [facility], 7th [place] [address] Leigh Mcclain MD 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) 08/07/2023 Telephone [facility] [address] [place] [address], 7th [place] [address] Stephanie Mc, LUCIA 08/02/2023 Orders Only [facility] [address] [place] [address], [facility] [place] [address] Zeenat Mercado APRN 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) 08/01/2023 Telephone [facility] - [facility] Oncology [address] [place] [address], [facility] [place] [address] Dina Gamino MD 08/01/2023 Nurse Triage [facility] ASKMDA PHYSICIAN [address] [place] [address] Max Darnell APRN 08/01/2023 Orders Only [facility] [address] [place] [address], [facility] [place] [address] Zeenat Mercado APRN 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) 08/01/[address] [address] Jessica Mathews, LUCIA [facility] Initial Call 07/31/2023 1:30 PM CDT Nutrition Clinical Nutrition For your Nutrition appointment location directions please call: Jolene [place] APRN Roberts, Mary K, KEITH Intraductal papillary mucinous neoplasm of pancreas 07/31/2023 1:00 PM CDT Office Visit [facility] [address] [place] [address], 7th [place] [address] Leigh Mcclain MD 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) 07/31/2023 11:53 AM CDT - 07/31/2023 11:59 PM CDT Hospital Encounter [facility] [address] [place] [address], [place] [address] Jolene [place], KENNEL TECHNICIAN Intraductal papillary mucinous neoplasm of pancreas Discharge Disposition: Home 07/31/2023 Telephone [facility] [address] [place] [address], 6th [place] [address] Oksana Guerra APRN 07/31/2023 Nurse Triage [facility] ASKMDA PHYSICIAN [address] [place] [address] Bhavana Delatorre, RN 07/31/2023 Travel 07/30/2023 Telephone [facility] [address] [place] [address], 7th Floor [place] [phone] Marcela Sin APRN 07/29/2023 Telephone [facility] TRANSL CARE [address] [address] Jessica Mathews, LUCIA 07/29/2023 Orders Only [facility] [address] [place] [address], 7th Floor [facility] [place] [address] Jolene [place], KENNEL TECHNICIAN 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) 07/23/2023 7:00 AM CDT - 07/23/2023 2:55 PM CDT Surgery MAIN OR [address] [place] [address] Leigh Mcclain MD PANCREATECTOMY,TOTAL 07/23/2023 6:50 AM CDT Anesthesia Event MAIN OR [address] [place], [place] [id number] Angeli Nugent MD 07/23/2023 5:40 AM CDT Ancillary Procedure MAIN OR [address] [place], [place] [id number] Zeenat Mercado APRN 07/23/2023 4:24 AM CDT - 07/29/2023 12:41 PM CDT Hospital Encounter MAIN [id number] [address] [place] [address] Leigh Mcclain MD Type 1 diabetes mellitus with hyperglycemia (Primary Dx); Intraductal papillary mucinous neoplasm of pancreas; Adenocarcinoma of pancreas; Type 2 diabetes mellitus with hyperglycemia Discharge Disposition: Home 07/23/2023 Travel 07/22/2023 Documentation MDA TRANSL MOLEC PATH Alexandra Flanagan 07/22/2023 Documentation [facility] [address] [place] [address] Main [facility], 7th [place] [address] Kaia Young 07/03/2023 3:00 PM CDT Nutrition Clinical Nutrition For your Nutrition appointment location directions please call: Zeenat Mercado APRN Roberts, Mary K, RD Intraductal papillary mucinous neoplasm of pancreas; Adenocarcinoma of pancreas 07/03/2023 2:00 PM CDT POEM Appointments [facility] [address] [place] [address], 6th [place] [address] Kamilla Bernard MD 07/03/2023 1:00 PM CDT Consult Perioperative Evaluation and Management [address] [place] [address], 6th [place] [address] Zeenat Mercado APRN Nguyen, Vinh Q, MD Type 2 diabetes mellitus well controlled (Primary Dx); Intraductal papillary mucinous neoplasm of pancreas; Adenocarcinoma of pancreas; Hyperlipidemia, not otherwise specified 07/03/2023 9:30 AM CDT Clinical Support [facility] [address] [place] [address], 6th [place] [address] Tee Salas MD Palma, Denise A, RD Type 2 diabetes mellitus with hyperglycemia 07/03/2023 8:00 AM CDT Office Visit [facility] [address] [place] [address] Main [facility], 7th [place] [address] Leigh Mcclain MD 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); Adenocarcinoma of pancreas; H/O splenectomy; History of partial pancreatectomy 07/03/2023 Travel 07/02/2023 11:59 PM CDT Anesthesia Event Perioperative Evaluation and Management Center [facility], 6th [place] [address] Pat Schulte RN 07/02/2023 1:45 PM CDT Ancillary Procedure CT Imaging [address] [facility], 7th [place] [address] Zeenat Mercado APRN Intraductal papillary mucinous neoplasm of pancreas; Adenocarcinoma of pancreas 07/02/2023 11:15 AM CDT - 07/02/2023 11:59 PM CDT Hospital Encounter Cardiopulmonary Center [address] [place] [address], 6th [place] [address] Zeenat Mercado APRN Intraductal papillary mucinous neoplasm of pancreas; Adenocarcinoma of pancreas Discharge Disposition: Home 07/02/2023 10:45 AM CDT - 07/02/2023 11:14 AM CDT Hospital Encounter [facility] [address] [place] [address] Zeenat Mercado APRN Intraductal papillary mucinous neoplasm of pancreas; Adenocarcinoma of pancreas Discharge Disposition: Home 07/02/2023 9:30 AM CDT Treatment Physical Medicine and Rehabilitation [address] [place] [address] east of the [place] entrance, Room [address]1.[address] [place] [address] [place] DO Fontillas, Rhodora, WAI Counseling on injury prevention (Primary Dx); Exercise counseling; At increased risk for activity intolerance; Shortness of breath; Pain 07/02/2023 9:00 AM CDT Follow-Up Physical Medicine and Rehabilitation [address] [place] [address] east of the [place] entrance, Room [address]1.[address] [place] [address] [place] DO Thomas, Jisha, APRN Neuralgia and neuritis, unspecified (Primary Dx); Exercise counseling 07/02/2023 Travel 06/24/2023 Orders Only [facility] [address] [place] [address] Main dg, 7th [place] [address] Zeenat Mercado APRN 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) 06/19/2023 1:00 PM CDT Clinical Support [facility] [address] [place] [address] Main [facility], 6th [place] [address] Tee Salas MD Palma, Denise A, RD Type 2 diabetes mellitus with hyperglycemia 06/19/2023 Travel 06/19/2023 Refill [facility] [address] [place] [address] Main [facility], 6th [place] [address] Magaly Ambrosio APRN Type 2 diabetes mellitus with hyperglycemia 06/18/2023 Refill [facility] [address] [place] [address] Main [facility], 6th [place] [address] Luz Elena Guevara RN Type 2 diabetes mellitus with hyperglycemia 06/02/2023 Refill [facility] [address] [place] [address] Main [facility], 6th [place] [address] Magaly Ambrosio APRN Type 2 diabetes mellitus with hyperglycemia 05/29/2023 1:00 PM FOOD SERVICE CLERK Clinical Support [facility] [address] [place] [address] Main [facility], 6th [place] [address] Tee Salas MD Palma, Denise A, RD Type 2 diabetes mellitus with hyperglycemia 05/29/2023 Travel 05/17/2023 10:30 AM FOOD SERVICE CLERK Clinical Support [facility] [address] [place] [address] Main dg, 6th [place] [address] Tee Salas MD Palma, Denise A, RD Adenocarcinoma of pancreas 05/17/2023 Orders Only [facility] [address] [place] [address] Main dg, 6th [place] [address] Type 2 diabetes mellitus with hyperglycemia (Primary Dx) 05/17/2023 Travel 05/15/2023 3:00 PM FOOD SERVICE CLERK Telephone [facility]ocrine Center [address] [facility] Main Bldg, 6th [place] [address] Zeenat Mercado APRN Palma, Denise A, KEITH 05/15/2023 1:00 PM FOOD SERVICE CLERK Nutrition Clinical Nutrition For your Nutrition appointment location directions please call: Kamilla Bernard MD Ebrus, Chelsea S, RD 05/14/2023 Prep for Surgery [facility] [address] [facility] Main Bldg, 7th [place] [address] Zeenat Mercado APRN 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); Adenocarcinoma of pancreas 05/10/2023 1:30 PM FOOD SERVICE CLERK Telemedicine [facility] [address] [facility] Main Bldg, 7th [place] [address] Leigh Mcclain MD 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); Adenocarcinoma of pancreas 05/10/2023 Orders Only Physical Medicine [facility] Rehabilitation [address] [facility] east of the Aquarium entrance, Room R1.1999 [place] [address] Kirsten Monzon, RN Exercise counseling (Primary Dx) 05/10/2023 Orders Only [facility] Rehabilitation [address] [facility] Main dg east of the Aqu[place] entrance, Room R1.1999 [place] [address] Kirsten Monzon, RN Exercise counseling (Primary Dx) 05/09/2023 Orders Only [facility] [address] [facility] Main Bldg, 7th [place] [address] Zeenat Mercado APRN Adenocarcinoma of pancreas (Primary Dx) 05/03/2023 1:15 PM FOOD SERVICE CLERK Ancillary Procedure [facility] [address] [place] [address] Zeenat Mercado APRN Adenocarcinoma of pancreas 05/03/2023 9:32 AM FOOD SERVICE CLERK - 05/03/2023 11:59 PM FOOD SERVICE CLERK Hospital Encounter Main CT IMAGING [address] [facility] Main Bldg, 3rd [place] [address] Zeenat Mercado APRN Adenocarcinoma of pancreas Discharge Disposition: Home 05/03/2023 9:16 AM FOOD SERVICE CLERK - 05/03/2023 9:31 AM FOOD SERVICE CLERK Hospital Encounter [facility] [address] [place] [address] Main [facility], [place] [address] Zeenat Mercado APRN Adenocarcinoma of pancreas; Intraductal papillary mucinous neoplasm of pancreas Discharge Disposition: Home 04/25/2023 Orders Only [facility] [address] [place] [address] Main dg, 7th [place] [address] Buster Nichole, CRC 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) 03/25/2023 Orders Only [facility] [address] [place] [address] Main dg, 7th [place] [address] Zeenat Mercado APRN Adenocarcinoma of pancreas (Primary Dx) 03/21/2023 Multidisciplinary Visit [facility] [address] [place] [address] Main dg, 7th [place] [address] Olinda Salamanca PA 03/14/2023 11:00 AM FOOD SERVICE CLERK Follow-Up [facility]ocrine Center [address] [place] [address] Main dg, 6th [place] [address] Tee Salas MD Sanjo, Jaya, APRN Type 2 diabetes mellitus with hyperglycemia (Primary Dx); Long-term (current) use of insulin; Mixed hyperlipidemia 03/14/2023 8:35 AM FOOD SERVICE CLERK - 03/14/2023 11:59 PM FOOD SERVICE CLERK Hospital Encounter [facility] [address] [place] [address] Main [facility], [place] [address] Tee Salas MD Type 2 diabetes mellitus with hyperglycemia; Long-term (current) use of insulin; Mixed hyperlipidemia Discharge Disposition: Home 03/14/2023 Travel 03/12/2023 8:52 AM FOOD SERVICE CLERK Anesthesia Event [facility] [address] [place] [address] Main dg, 5th [place] [address] EliTien sung MD Singh, Ajaypal, CRNA 03/12/2023 8:20 AM FOOD SERVICE CLERK - 03/12/2023 9:35 AM FOOD SERVICE CLERK Surgery [facility] [address] [place] [address], 5th [place] [address] Kenyon Mcmillan MD UPPER GASTROINTESTINAL ENDOSCOPY OF ESOPHAGUS, STOMACH AND DUODENUM WITH ENDOSCOPIC ULTRASOUND GUIDED INTRAMURAL FINE NEEDLE ASPIRATION 03/12/2023 7:21 AM FOOD SERVICE CLERK - 03/12/2023 11:19 AM FOOD SERVICE CLERK Hospital Encounter [facility] Center [address] [place] [address], 5th [place] [address] Kenyon Mcmillan MD Adenocarcinoma, NOS of head of pancreas Discharge Disposition: Home 03/12/2023 Travel 2023 11:59 PM FOOD SERVICE CLERK Anesthesia Event [facility] [address] [place] [address], 6th [place] [address] Naila Hill RN 2023 4:30 PM FOOD SERVICE CLERK POEM Appointments [facility] [address] [place] [address], [facility] [place] [address] Kamilla Bernard MD after 03/05/2023 Immunizations Name Administration Dates Next Due Fluad Quad Pf 11/25/2023,12/26/2022,12/18/2021 Hib (PRP-OMP) 09/29/2021 Meningococcal B, Omv 10/04/2023,12/06/2021,09/29 Meningococcal MCV4O 12/06/2021,09/29/2021 Moderna SARS-CoV-2 Vaccination 03/02/2021,2020 Pfizer SARS-CoV-2 Bivalent V accine 12+ y.o. (30 mcg/0.3 mL) 01/09/2022 Pneumococcal Conjugate 15-valent 07/03/2023 Pneumococcal Polysaccharide PPSV23 06/13/2022,,02/04/2020 Surgical History Surgery Date Site/Laterality Comments VA EDG US EXAM SURGICAL ALTE R STOM DUODENUM/JEJUNUM 09/06/2021 N/A Procedure: UPPER GASTROINTESTINAL ENDOSCOPY WITH ENDOSCOPIC ULTRASOUND EXAMINATION; Surgeon: Kenyon Mcmillan MD; Location: MAIN ENDOSCOPY; Service: GASTROENTEROLOGY VA LAPS ABD PRTM&OMENTUM DX W/WO SPEC BR/WA SPX 11/09/2021 Abdomen/N/A Procedure: DIAGNOSTIC LAPAROSCOPY OF ABDOMEN, PERITONEUM, AND OMENTUM; Surgeon: Leigh Mcclain MD; Location: MAIN OR; Service: SURG ONC - PANCREAS VA PNCRTECT DSTL STOT W/O PNCRTCOJEJUNOSTOMY 11/09/2021 Abdomen/N/A Procedure: PANCREATECTOMY, DISTAL SUBTOTAL, WITH SPLENECTOMY; Surgeon: Leigh Mcclain MD; Location: MAIN OR; Service: SURG ONC - PANCREAS VA ULTRASONIC GUIDANCE INTRAOPERATIVE 11/09/2021 N/A Procedure: INTROPERATIVE ULTRASOUND - PERFORMED BY SURGEON; Surgeon: Leigh Mcclain MD; Location: MAIN OR; Service: SURG ONC - PANCREAS VA EGD INTRMURAL NEEDLE ASPIR/BIOP ALTERED ANATOMY 03/12/2023 Esophagus/N/A Procedure: UPPER GASTROINTESTINAL ENDOSCOPY OF ESOPHAGUS, STOMACH AND DUODENUM WITH ENDOSCOPIC ULTRASOUND GUIDED INTRAMURAL FINE NEEDLE ASPIRATION; Surgeon: Kenyon Mcmillan MD; Location: MAIN ENDOSCOPY; Service: GASTROENTEROLOGY VA PANCREATECTOMY TOTAL 07/23/2023 Abdomen/N/A Procedure: PANCREATECTOMY,TOTAL; Surgeon: Leigh Mcclain MD; Location: MAIN OR; Service: SURG ONC - PANCREAS VA ULTRASONIC GUIDANCE INTRAOPERATIVE 07/23/2023 Abdomen/N/A Procedure: INTROPERATIVE ULTRASOUND - PERFORMED BY SURGEON; Surgeon: Leigh Mcclain MD; Location: MAIN OR; Service: SURG ONC - PANCREAS VA ENTEROLSS FRING INTSTINAL ADHESION SPX 07/23/2023 Abdomen/N/A Procedure: OPEN FREEING OF INTESTINAL ADHESION; Surgeon: Leigh Mcclain MD; Location: MAIN OR; Service: SURG ONC - PANCREAS Medical History Medical History Date Comments Tooth disorder 2019 History of recurrent urinary tract infection 202 2 Type 2 diabetes mellitus with hyperglycemia 2019 Depressive disorder 2013 Eczema 1982 Hyperlipidemia Hypertension Neuropathy 2020 Pancreas cancer Diabetes mellitus Type 1 diabetes mellitus with hyperglycemia 07/07 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 11th grade 07/03/2023 Comments No Sex and Gender Information Value Date Recorded Sex Assigned at Not on file Legal Sex Female 12:32 PM CDT Gender Identity Not on file Sexual Orientation Not on file Obstetrics History Last Filed Vital Signs Vital Sign Reading Time Taken Comments Blood Pressure 142/71 01/20/2024 10:11 AM CDT Pulse 77 01/20/2024 10:11 AM CDT Temperature 36.7 C (98.1 F) 01/20/2024 10:11 AM C DT Respiratory Rate 18 01/20/2024 10:11 AM CDT Oxygen Saturation 96% 01/20/2024 10:11 AM CDT Inhaled Oxygen Concentration - - Weight 66.8 kg (147 lb 4.3 oz) 01/20/2024 10:11 AM CDT Height 161.2 cm (5' 3.47") 07/24/2023 4:03 PM CD T per pt Body Mass Index 25.71 07/24/2023 4:03 PM CDT Plan of Treatment Upcoming Encounters Date Type Department Care Team (Late st Contact Info) Description 03/10/2024 10:00 AM FOOD SERVICE CLERK Telephone [facility] [address] [place] [address], 6th [place] [address] Tee Salas MD [address] [place] [phone] [email or web address] Carley Morgan, RD [address] [place] [address] [email or web address] 04/29/2024 9:00 AM FOOD SERVICE CLERK Appointment [facility] [address] [place] [address], [place] [address] Tee Salas MD [address] [place] [phone] [email or web address] 04/29/2024 10:00 AM FOOD SERVICE CLERK Ancillary Procedure General Ultrasound 12[address] [facility], 5th [place] [address] Tee Salas MD [address] [place] [address] [email or web address] 04/29/2024 11:30 AM FOOD SERVICE CLERK Follow-Up [facility]ocrine Center [address] [place] [address], 6th [place] [address] Ruben Amato APRN [address] [place] [address] [email or web address] 07/21/2024 7:15 AM CDT Appointment [facility] [address] [place] [address] Zeenat Mercado APRN [facility] [place] [address] [email or web address] 07/21/2024 8:15 AM CDT Ancillary Procedure CT Imaging 12[address] [facility], 7th [place] [address] Zeenat Mercado APRN [address] [place] [address] [email or web address] 07/22/2024 9:30 AM CDT Follow-Up [facility] [address] [place] [address], [address] [place] [address] Leigh Mcclain MD [facility] [place] [address] [email or web address] 07/22/2024 11:00 AM CDT Nutrition Clinical Nutrition For your Nutrition appointment location directions please call: Zeenat Mercado, KENNEL TECHNICIAN [address] [place] [address] [email or web address] Lydia Anderson, RD [address] [place] [address] [email or web address] Health Maintenance Due Date Last Done Comments COVID-19 Vaccine (2023-05 5 season) 2023 01/09/2022, 03/02/2021, 01/31/2021, Additional history exists Pneumococcal Vaccine: 65+ Years Completed 07/03/2023, 06/13/2022, 08/10/2021, Additional history exists Influenza Vaccine Completed 11/25/2023, , 12/18/2021 Procedures Procedure Name Priority Date/Time Associated Diagnosis Comments C-PEPTIDE Routine 01/20/2024 8:28 AM CDT Type 1 diabetes mellitus with hyperglycemia Long-term (current) use of insulin BLOOD UREA NITROGEN Routine 01/20/2024 8:28 AM CDT Type 1 diabetes mellitus with hyperglycemia GLUCOSE, RANDOM Routine 01/20/2024 8:28 AM CDT Type 1 diabetes mellitus with hyperglycemia CREATININE Routine 01/20/2024 8:28 AM CDT Type 1 diabetes mellitus with hyperglycemia ASPARTATE AMINOTRANSFERASE Routine 01/20/2024 8:28 AM CDT Type 1 diabetes mellitus with hyperglycemia ALANINE AMINOTRANSFERASE Routine 01/20/2024 8:28 AM CDT Type 1 diabetes mellitus with hyperglycemia ELECTROLYTE PANEL Routine 01/20/2024 8:28 AM CDT Type 1 diabetes mellitus with hyperglycemia HEMOGLOBIN A1C Routine 01/20/2024 8:28 AM CDT Type 1 diabetes mellitus with hyperglycemia LIPID PANEL Routine 01/20/2024 8:28 AM CDT Type 1 diabetes mellitus with hyperglycemia CT CHEST ABDOMEN PELVIS W WO CONTRAST Routine 12/31/2023 10:50 AM CDT Adenocarcinoma of pancreas .CBC Routine 12/31/2023 7:45 AM CDT Adenocarcinoma of pancreas HEMOGLOBIN A1C Routine 12/31/2023 7:45 AM CDT Adenocarcinoma of pancreas VITAMIN B12 LEVEL Routine 12/31/2023 7:45 AM CDT Adenocarcinoma of pancreas VITAMIN D 25 HYDROXY LEVEL Routine 12/31/2023 7:45 AM CDT Adenocarcinoma of pancreas PREALBUMIN Routine 12/31/2023 7:45 AM CDT Adenocarcinoma of pancreas COMPREHENSIVE METABOLIC PANEL Routine 12/31/2023 7:45 AM CDT Adenocarcinoma of pancreas CARCINOEMBRYONIC ANTIGEN Routine 12/31/2023 7:45 AM CDT Adenocarcinoma of pancreas COMPLETE BLOOD COUNT W/ DIFFERENTIAL Routine 12/31/2023 7:45 AM CDT Adenocarcinoma of pancreas CARBOHYDRATE ANTIGEN 19-9 Routine 12/31/2023 7:45 AM CDT Adenocarcinoma of pancreas CREATININE Routine 09/18/2023 7:43 AM CDT Type 2 diabetes mellitus with hyperglycemia Long-term (current) use of insulin Mixed hyperlipidemia ELECTROLYTE PANEL Routine 09/18/2023 7:43 AM CDT Type 2 diabetes mellitus with hyperglycemia Long-term (current) use of insulin Mixed hyperlipidemia HEMOGLOBIN A1C Routine 09/18/2023 7:43 AM CDT Type 2 diabetes mellitus with hyperglycemia Long-term (current) use of insulin Mixed hyperlipidemia LIPID PANEL Routine 09/18/2023 7:43 AM CDT Type 2 diabetes mellitus with hyperglycemia Long-term (current) use of insulin Mixed hyperlipidemia BLOOD UREA NITROGEN Routine 09/18/2023 7:43 AM CDT Type 2 diabetes mellitus with hyperglycemia Long-term (current) use of insulin Mixed hyperlipidemia THYROID STIMULATING HORMONE Routine 09/18/2023 7:43 AM CDT Type 2 diabetes mellitus with hyperglycemia Long-term (current) use of insulin Mixed hyperlipidemia GLUCOSE, RANDOM Routine 09/18/2023 7:43 AM CDT Type 2 diabetes mellitus with hyperglycemia Long-term (current) use of insulin Mixed hyperlipidemia FREE THYROXINE Routine 09/18/2023 7:43 AM CDT Type 2 diabetes mellitus with hyperglycemia Long-term (current) use of insulin Mixed hyperlipidemia ASPARTATE AMINOTRANSFERASE Routine 09/18/2023 7:43 AM CDT Type 2 diabetes mellitus with hyperglycemia Long-term (current) use of insulin Mixed hyperlipidemia ALANINE AMINOTRANSFERASE Routine 09/18/2023 7:43 AM CDT Type 2 diabetes mellitus with hyperglycemia Long-term (current) use of insulin Mixed hyperlipidemia CT CHEST ABDOMEN PELVIS W CONTRAST Routine 08/27/2023 10:32 AM CDT Intraductal papillary mucinous neoplasm of pancreas MDA CP HEMOGRAM Routine 08/27/2023 6:42 AM CDT Intraductal papillary mucinous neoplasm of pancreas RESEARCH PROTOCOL [id number] Routine 08/27/2023 6:42 AM CDT Adenocarcinoma of pancreas HEMOGLOBIN A1C Routine 08/27/2023 6:42 AM CDT Intraductal papillary mucinous neoplasm of pancreas VITAMIN B12 LEVEL Routine 08/27/2023 6:42 AM CDT Intraductal papillary mucinous neoplasm of pancreas VITAMIN D 25 HYDROXY LEVEL Routine 08/27/2023 6:42 AM CDT Intraductal papillary mucinous neoplasm of pancreas PREALBUMIN Routine 08/27/2023 6:42 AM CDT Intraductal papillary mucinous neoplasm of pancreas CARBOHYDRATE ANTIGEN 19-9 Routine 08/27/2023 6:42 AM CDT Intraductal papillary mucinous neoplasm of pancreas COMPREHENSIVE METABOLIC PANEL Routine 08/27/2023 6:42 AM CDT Intraductal papillary mucinous neoplasm of pancreas COMPLETE BLOOD COUNT W/ INDICES Routine 08/27/2023 6:42 AM CDT Intraductal papillary mucinous neoplasm of pancreas .CBC Routine 07/31/2023 12:03 PM CDT Intraductal papillary mucinous neoplasm of pancreas COMPLETE BLOOD COUNT W/ DIFFERENTIAL Routine 07/31/2023 12:03 PM CDT Intraductal papillary mucinous neoplasm of pancreas COMPREHENSIVE METABOLIC PANEL Routine 07/31/2023 12:03 PM CDT Intraductal papillary mucinous neoplasm of pancreas PREALBUMIN Routine 07/31/2023 12:03 PM CDT Intraductal papillary mucinous neoplasm of pancreas PHOSPHORUS LEVEL Routine 07/31/2023 12:03 PM CDT Intraductal papillary mucinous neoplasm of pancreas MAGNESIUM LEVEL Routine 07/31/2023 12:03 PM CDT Intraductal papillary mucinous neoplasm of pancreas POC GLUCOSE SCREEN Routine 07/29/2023 7:32 AM CDT .CBC Routine 07/29/2023 2:25 AM CDT CALCIUM IONIZED, VENOUS Routine 07/29/2023 2:25 AM CDT BASIC METABOLIC PANEL, CALCIUM IONIZED Routine 07/29/2023 2:25 AM CDT COMPLETE BLOOD COUNT W/ DIFFERENTIAL Routine 07/29/2023 2:25 AM CDT C REACTIVE PROTEIN Routine 07/29/2023 2:25 AM CDT PHOSPHORUS LEVEL Routine 07/29/2023 2:25 AM CDT BASIC METABOLIC PANEL, CALCIUM IONIZED Routine 07/29/2023 2:25 AM CDT MAGNESIUM LEVEL Routine 07/29/2023 2:25 AM CDT TYPE AND SCREEN Routine 07/29/2023 2:25 AM CDT POC GLUCOSE SCREEN Routine 07/28/2023 8:29 PM CDT BASIC METABOLIC PANEL, CALCIUM TOTAL Routine 07/28/2023 5:09 PM CDT PHOSPHORUS LEVEL Routine 07/28/2023 5:09 PM CDT POC GLUCOSE SCREEN Routine 07/28/2023 4:23 PM CDT POC GLUCOSE SCREEN Routine 07/28/2023 11:40 AM CDT POC GLUCOSE SCREEN Routine 07/28/2023 8:08 AM CDT .CBC Routine 07/28/2023 3:18 AM CDT CALCIUM IONIZED, VENOUS Routine 07/28/2023 3:18 AM CDT BASIC METABOLIC PANEL, CALCIUM IONIZED Routine 07/28/2023 3:18 AM CDT COMPLETE BLOOD COUNT W/ DIFFERENTIAL Routine 07/28/2023 3:18 AM CDT C REACTIVE PROTEIN Routine 07/28/2023 3:18 AM CDT PHOSPHORUS LEVEL Routine 07/28/2023 3:18 AM CDT BASIC METABOLIC PANEL, CALCIUM IONIZED Routine 07/28/2023 3:18 AM CDT MAGNESIUM LEVEL Routine 07/28/2023 3:18 AM CDT POC GLUCOSE SCREEN Routine 07/27/2023 8:18 PM CDT BASIC METABOLIC PANEL, CALCIUM TOTAL Routine 07/27/2023 5:19 PM CDT PHOSPHORUS LEVEL Routine 07/27/2023 5:19 PM CDT POC GLUCOSE SCREEN Routine 07/27/2023 5:10 PM CDT POC GLUCOSE SCREEN Routine 07/27/2023 12:47 PM CDT POC GLUCOSE SCREEN Routine 07/27/2023 8:19 AM CDT CALCIUM IONIZED, VENOUS Routine 07/27/2023 4:39 AM CDT .CBC Routine 07/27/2023 4:38 AM CDT BASIC METABOLIC PANEL, CALCIUM IONIZED Routine 07/27/2023 4:38 AM CDT COMPLETE BLOOD COUNT W/ DIFFERENTIAL Routine 07/27/2023 4:38 AM CDT C REACTIVE PROTEIN Routine 07/27/2023 4:38 AM CDT PHOSPHORUS LEVEL Routine 07/27/2023 4:38 AM CDT BASIC METABOLIC PANEL, CALCIUM IONIZED Routine 07/27/2023 4:38 AM CDT MAGNESIUM LEVEL Routine 07/27/2023 4:38 AM CDT POC GLUCOSE SCREEN Routine 07/27/2023 4:32 AM CDT POC GLUCOSE SCREEN Routine 07/27/2023 12:23 AM CDT EKG, 12-LEAD (PORTABLE) STAT 07/27/2023 CALCIUM IONIZED, VENOUS Routine 07/26/2023 9:58 PM CDT BASIC METABOLIC PANEL, CALCIUM IONIZED Routine 07/26/2023 9:58 PM CDT PHOSPHORUS LEVEL Routine 07/26/2023 9:58 PM CDT BASIC METABOLIC PANEL, CALCIUM IONIZED Routine 07/26/2023 9:58 PM CDT POC GLUCOSE SCREEN Routine 07/26/2023 8:24 PM CDT POC GLUCOSE SCREEN Routine 07/26/2023 5:06 PM CDT POC GLUCOSE SCREEN Routine 07/26/2023 1:00 PM CDT HEPATIC FUNCTION PANEL Add-On 07/26/2023 12:34 PM CDT CALCIUM IONIZED, VENOUS Routine 07/26/2023 12:34 PM CDT BASIC METABOLIC PANEL, CALCIUM IONIZED Routine 07/26/2023 12:34 PM CDT LACTIC ACID, VENOUS Routine 07/26/2023 12:34 PM CDT AMMONIA LEVEL Routine 07/26/2023 12:34 PM CDT PHOSPHORUS LEVEL Routine 07/26/2023 12:34 PM CDT MAGNESIUM LEVEL Routine 07/26/2023 12:34 PM CDT BASIC METABOLIC PANEL, CALCIUM IONIZED Routine 07/26/2023 12:34 PM CDT POC GLUCOSE SCREEN Routine 07/26/2023 9:19 AM CDT POC GLUCOSE SCREEN Routine 07/26/2023 4:49 AM CDT .CBC Routine 07/26/2023 4:37 AM CDT CALCIUM IONIZED, VENOUS Routine 07/26/2023 4:37 AM CDT BASIC METABOLIC PANEL, CALCIUM IONIZED Routine 07/26/2023 4:37 AM CDT COMPLETE BLOOD COUNT W/ DIFFERENTIAL Routine 07/26/2023 4:37 AM CDT C REACTIVE PROTEIN Routine 07/26/2023 4:37 AM CDT PHOSPHORUS LEVEL Routine 07/26/2023 4:37 AM CDT BASIC METABOLIC PANEL, CALCIUM IONIZED Routine 07/26/2023 4:37 AM CDT MAGNESIUM LEVEL Routine 07/26/2023 4:37 AM CDT TYPE AND SCREEN Routine 07/26/2023 4:37 AM CDT .CBC STAT 07/25/2023 2:44 PM CDT PHOSPHORUS LEVEL STAT 07/25/2023 2:44 PM CDT MAGNESIUM LEVEL STAT 07/25/2023 2:44 PM CDT COMPREHENSIVE METABOLIC PANEL STAT 07/25/2023 2:44 PM CDT COMPLETE BLOOD COUNT W/ DIFFERENTIAL STAT 07/25/2023 2:44 PM CDT BLOOD GAS ARTERIAL STAT 07/25/2023 2:44 PM CDT XR CHEST 1 VW STAT 07/25/2023 2:40 PM CDT BASIC METABOLIC PANEL, CALCIUM TOTAL STAT 07/25/2023 5:16 AM CDT .CBC Routine 07/25/2023 5:16 AM CDT COMPLETE BLOOD COUNT W/ DIFFERENTIAL Routine 07/25/2023 5:16 AM CDT POC GLUCOSE SCREEN Routine 07/25/2023 4:10 AM CDT CALCIUM IONIZED, VENOUS Routine 07/25/2023 1:27 AM CDT BASIC METABOLIC PANEL, CALCIUM IONIZED Routine 07/25/2023 1:27 AM CDT BLOOD GAS VENOUS STAT 07/25/2023 1:27 AM CDT C REACTIVE PROTEIN Routine 07/25/2023 1:27 AM CDT PHOSPHORUS LEVEL Routine 07/25/2023 1:27 AM CDT BASIC METABOLIC PANEL, CALCIUM IONIZED Routine 07/25/2023 1:27 AM CDT MAGNESIUM LEVEL Routine 07/25/2023 1:27 AM CDT POC GLUCOSE SCREEN Routine 07/24/2023 7:39 AM CDT POC GLUCOSE SCREEN Routine 07/24/2023 5:07 AM CDT .CBC Routine 07/24/2023 2:47 AM CDT CALCIUM IONIZED, VENOUS Routine 07/24/2023 2:47 AM CDT BASIC METABOLIC PANEL, CALCIUM IONIZED Routine 07/24/2023 2:47 AM CDT COMPLETE BLOOD COUNT W/ DIFFERENTIAL Routine 07/24/2023 2:47 AM CDT C REACTIVE PROTEIN Routine 07/24/2023 2:47 AM CDT PHOSPHORUS LEVEL Routine 07/24/2023 2:47 AM CDT BASIC METABOLIC PANEL, CALCIUM IONIZED Routine 07/24/2023 2:47 AM CDT MAGNESIUM LEVEL Routine 07/24/2023 2:47 AM CDT POC GLUCOSE SCREEN Routine 07/24/2023 1:00 AM CDT POC GLUCOSE SCREEN Routine 07/23/2023 8:59 PM CDT .CBC Routine 07/23/2023 4:27 PM CDT CALCIUM IONIZED, VENOUS Routine 07/23/2023 4:27 PM CDT BASIC METABOLIC PANEL, CALCIUM IONIZED Routine 07/23/2023 4:27 PM CDT COMPLETE BLOOD COUNT W/ DIFFERENTIAL Routine 07/23/2023 4:27 PM CDT PHOSPHORUS LEVEL Routine 07/23/2023 4:27 PM CDT MAGNESIUM LEVEL Routine 07/23/2023 4:27 PM CDT BASIC METABOLIC PANEL, CALCIUM IONIZED Routine 07/23/2023 4:27 PM CDT POC GLUCOSE SCREEN Routine 07/23/2023 4:12 PM CDT POC GLUCOSE SCREEN Routine 07/23/2023 1:45 PM CDT POC GLUCOSE SCREEN Routine 07/23/2023 12:50 PM CDT POC GLUCOSE SCREEN Routine 07/23/2023 11:53 AM CDT PATHOLOGY SURGICAL INTERPRETATION Routine 07/23/2023 10:55 AM CDT 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 pancreas POC GLUCOSE SCREEN Routine 07/23/2023 10:30 AM CDT POC GLUCOSE SCREEN Routine 07/23/2023 9:25 AM CDT ARTERIAL BLOOD GAS PLUS STAT 07/23/2023 7:42 AM CDT PERIPHERAL BLOCK Routine 07/23/2023 7:40 AM CDT POC GLUCOSE SCREEN Routine 07/23/2023 6:43 AM CDT TYPE AND SCREEN STAT 07/23/2023 6:18 AM CDT [facility] ENTEROLSS FRING INTSTINAL ADHESION SPX 07/23/2023 6:05 AM CDT 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 pancreas Special Needs 0500@LRplease request orb-eye if in OR rooms 1-32Peripheral Blood: Collect FOUR PURPLE TOPS (EDTA) prior to heparin administration (~40 mls). Please try to fill the tubes. Deliver tubes HAILY to Frozen Section / Pathology Suite. Tissue: Pl wu specimen in STERILE drape / cloth and wrap; enclose in STERILE container for transport to Frozen Section. Do not send in Tis-u-inge. Deliver specimen HAILY to Frozen Section / Pathology Suite. Questions: Page/Call/Text Dr. Kevin Gandara (mobile: / pager: [phone]). Please: Let us know when the main specimen goes to the Path Suite.-- [facility] ULTRASONIC GUIDANCE INTRAOPERATIVE 07/23/2023 6:05 AM CDT 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 pancreas Special Needs 0500@LRplease request orb-eye if in OR rooms 1-32Peripheral Blood: Collect FOUR PURPLE TOPS (EDTA) prior to heparin administration (~40 mls). Please try to fill the tubes. Deliver tubes HAILY to Frozen Section / Pathology Suite. Tissue: Pl wu specimen in STERILE drape / cloth and wrap; enclose in STERILE container for transport to Frozen Section. Do not send in Tis-u-inge. Deliver specimen HAILY to Frozen Section / Pathology Suite. Questions: Page/Call/Text Dr. Kevin Gandara (mobile: [phone] / pager: [phone]). Please: Let us know when the main specimen goes to the Path Suite.-- [facility] PANCREATECTOMY TOTAL 07/23/2023 6:05 AM CDT 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 pancreas Special Needs 0500@[facility] request orb-eye if in OR rooms 1-32Peripheral Blood: Collect FOUR PURPLE TOPS (EDTA) prior to heparin administration (~40 mls). Please try to fill the tubes. Deliver tubes HAILY to Frozen Section / Pathology Suite. Tissue: Pl wu specimen in STERILE drape / cloth and wrap; enclose in STERILE container for transport to Frozen Section. Do not send in Tis-u-inge. Deliver specimen HAILY to Frozen Section / Pathology Suite. Questions: Page/Call/Text Dr. Kevin Gandara (mobile: [employer] [phone] / pager: [phone]). 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 pancreas APTT Routine 07/02/2023 10:57 AM CDT 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 pancreas PROTHROMBIN TIME Routine 07/02/2023 10:57 AM CDT 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 pancreas HEMOGLOBIN A1C Routine 07/02/2023 10:57 AM CDT 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 pancreas TYPE AND SCREEN Routine 07/02/2023 10:57 AM CDT 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 pancreas CARBOHYDRATE ANTIGEN 19-9 Routine 07/02/2023 10:57 AM CDT 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 pancreas COMPREHENSIVE METABOLIC PANEL Routine 07/02/2023 10:57 AM CDT 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 pancreas EKG, 12-LEAD (SCHEDULED) Routine 07/02/2023 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 pancreas MRI ABDOMEN W WO CONTRAST Routine 05/03/2023 2:47 PM FOOD SERVICE CLERK Adenocarcinoma of pancreas CT ABDOMEN PELVIS W WO CONTRAST Routine 05/03/2023 11:12 AM FOOD SERVICE CLERK Adenocarcinoma of pancreas MDA CP HEMOGRAM Routine 05/03/2023 9:29 AM FOOD SERVICE CLERK Adenocarcinoma of pancreas RESEARCH PROTOCOL [id number] Routine 05/03/2023 9:29 AM FOOD SERVICE CLERK Intraductal papillary mucinous neoplasm of pancreas CARBOHYDRATE ANTIGEN 19-9 Routine 05/03/2023 9:29 AM FOOD SERVICE CLERK Adenocarcinoma of pancreas COMPREHENSIVE METABOLIC PANEL Routine 05/03/2023 9:29 AM FOOD SERVICE CLERK Adenocarcinoma of pancreas COMPLETE BLOOD COUNT W/ INDICES Routine 05/03/2023 9:29 AM FOOD SERVICE CLERK Adenocarcinoma of pancreas MICROALBUMIN/CREATINI NE RATIO, URINE Routine 03/14/2023 8:41 AM FOOD SERVICE CLERK Type 2 diabetes mellitus with hyperglycemia Long-term (current) use of insulin Mixed hyperlipidemia CREATININE Routine 03/14/2023 8:41 AM FOOD SERVICE CLERK Type 2 diabetes mellitus with hyperglycemia Long-term (current) use of insulin Mixed hyperlipidemia ELECTROLYTE PANEL Routine 03/14/2023 8:41 AM FOOD SERVICE CLERK Type 2 diabetes mellitus with hyperglycemia Long-term (current) use of insulin Mixed hyperlipidemia HEMOGLOBIN A1C Routine 03/14/2023 8:41 AM FOOD SERVICE CLERK Type 2 diabetes mellitus with hyperglycemia Long-term (current) use of insulin Mixed hyperlipidemia LIPID PANEL Routine 03/14/2023 8:41 AM FOOD SERVICE CLERK Type 2 diabetes mellitus with hyperglycemia Long-term (current) use of insulin Mixed hyperlipidemia BLOOD UREA NITROGEN Routine 03/14/2023 8:41 AM FOOD SERVICE CLERK Type 2 diabetes mellitus with hyperglycemia Long-term (current) use of insulin Mixed hyperlipidemia THYROID STIMULATING HORMONE Routine 03/14/2023 8:41 AM FOOD SERVICE CLERK Type 2 diabetes mellitus with hyperglycemia Long-term (current) use of insulin Mixed hyperlipidemia GLUCOSE, RANDOM Routine 03/14/2023 8:41 AM FOOD SERVICE CLERK Type 2 diabetes mellitus with hyperglycemia Long-term (current) use of insulin Mixed hyperlipidemia FREE THYROXINE Routine 03/14/2023 8:41 AM FOOD SERVICE CLERK Type 2 diabetes mellitus with hyperglycemia Long-term (current) use of insulin Mixed hyperlipidemia ASPARTATE AMINOTRANSFERASE Routine 03/14/2023 8:41 AM FOOD SERVICE CLERK Type 2 diabetes mellitus with hyperglycemia Long-term (current) use of insulin Mixed hyperlipidemia ALANINE AMINOTRANSFERASE Routine 03/14/2023 8:41 AM FOOD SERVICE CLERK Type 2 diabetes mellitus with hyperglycemia Long-term (current) use of insulin Mixed hyperlipidemia CYTOLOGY IMAGE-GUIDED FNA INTERPRETATION Routine 03/12/2023 9:34 AM FOOD SERVICE CLERK Adenocarcinoma, NOS of head of pancreas CYTOLOGY IMAGE-GUIDED FNA INTERPRETATION Routine 03/12/2023 9:29 AM FOOD SERVICE CLERK Adenocarcinoma, NOS of head of pancreas VA EGD INTRMURAL NEEDLE ASPIR/BIOP ALTERED ANATOMY 03/12/2023 8:37 AM FOOD SERVICE CLERK Adenocarcinoma, NOS of head of pancreas POC GLUCOSE SCREEN Routine 03/12/2023 8:20 AM FOOD SERVICE CLERK after 03/05/2023 Results * Glucose, Random (01/20/2024 8:28 AM CDT) Only the most recent of3 resultswithin the time period is included. Glucose Random 138 70 - 199 mg/dL 01/20/2024 9:23 AM CDT [facility] Blood Peripheral blood specimen / Unknown Venipuncture / Unknown 01/20/2024 8:28 AM CDT 01/20/2024 8:32 AM CDT Narrative [facility] - 01/20/2024 9:23 AM CDT Effective 11/02/15, the glucose reference intervals have been updated based on [place] [employer] guidelines (Standards of Medical Care in Diabetes 2016. Diabetes Care 2016; 39: S13-S22). Fasting blood glucose: Normal: 70-99 mg/dL Impaired fasting glucose (increased risk for diabetes or pre-diabetes): 100-125 mg/dL Diabetes mellitus: >/=126 mg/dL Random blood glucose: Normal: 70-199 mg/dL Note: Random glucose >100 mg/dL is associated with increased risk for diabetes us Tee Salas MD LAB BLOOD ORDERABLES Final Resul t [facility] Unless otherwise noted, all lab tests performed by: Division of Pathology and Laboratory Medicine [address] [place] [id number] * (ABNORMAL) C Peptide (01/20/2024 8:28 AM CDT) [facility] C-Peptide <0.02(L) 1.10 - 4.40 ng/mL 01/20/2024 9:47 AM CDT [facility] Blood Peripheral blood specimen / Unknown Venipuncture / Unknown 01/20/2024 8:28 AM CDT 01/20/2024 8:32 AM CDT us Ruben Amato APRN LAB BLOOD ORDERABLES Final Resul t [facility] Unless otherwise noted, all lab tests performed by: Division of Pathology and Laboratory Medicine [address] [place] [id number] * BUN (01/20/2024 8:28 AM CDT) Only the most recent of3 resultswithin the time period is included. [facility] BUN 21 6 - 23 mg/dL 01/20/2024 9:23 AM CDT [facility] Blood Peripheral blood specimen / Unknown Venipuncture / Unknown 01/20/2024 8:28 AM CDT 01/20/2024 8:32 AM CDT us Tee Salas MD LAB BLOOD ORDERABLES Final Resul t Performing Organization Address City/[facility] Co de Phone Number [facility] Unless otherwise noted, all lab tests performed by: Division of Pathology and Laboratory Medicine [address] [place] [id number] * (ABNORMAL) ALT (01/20/2024 8:28 AM CDT) Only the most recent of3 resultswithin the time period is included. ALT 62(H) <=33 U/L 01/20/2024 9:23 AM CDT [facility] Blood Peripheral blood specimen / Unknown Venipuncture / Unknown 01/20/2024 8:28 AM CDT 01/20/2024 8:32 AM CDT us Tee Salas MD LAB BLOOD ORDERABLES Final Resul t Performing Organization Address [facility]/[place] de Phone Number [facility] Unless otherwise noted, all lab tests performed by: Division of Pathology and Laboratory Medicine [address] [place] [phone] * (ABNORMAL) Aspartate Aminotransferase (01/20/2024 8:28 AM CDT) Only the most recent of3 resultswithin the time period is included. AST 76(H) <=32 U/L 01/20/2024 9:23 AM CDT [facility] Blood Peripheral blood specimen / Unknown Venipuncture / Unknown 01/20/2024 8:28 AM CDT 01/20/2024 8:32 AM CDT us Tee Salas MD LAB BLOOD ORDERABLES Final Resul t Performing Organization Address City/[facility]/ZIP Co de Phone Number [facility] Unless otherwise noted, all lab tests performed by: Division of Pathology and Laboratory Medicine [address] [place] [address] * (ABNORMAL) Hemoglobin A1c (01/20/2024 8:28 AM CDT) Only the most recent of6 resultswithin the time period is included. Hemoglobin A1c 8.1(H) 4.3 - 5.6 % 01/20/2024 8:59 AM CDT [facility] Blood Peripheral blood specimen / Unknown Venipuncture / Unknown 01/20/2024 8:28 AM CDT 01/20/2024 8:32 AM CDT Narrative [facility] - 01/20/2024 8:59 AM CDT HbA1c values >=6.5% are diagnostic of diabetes mellitus. Diagnosis should be confirmed by repeat testing. Therapeutic Action suggested: >8.0% HbA1c; Goal of therapy: <7.0% HbA1c us Tee Salas MD LAB BLOOD ORDERABLES Final Resul t [facility] Unless otherwise noted, all lab tests performed by: Division of Pathology and Laboratory Medicine [address] [place] [id number] * (ABNORMAL) Creatinine (01/20/2024 8:28 AM CDT) Only the most recent of3 resultswithin the time period is included. Creatinine 0.46(L) 0.51 - 0.95 mg/dL 01/20/2024 9:23 AM CDT [facility] eGFR 105 >=60 mL/min/1. 73 sq. m 01/20/2024 9:23 AM CDT [facility] Comment: The eGFRcr is calculated with the 2020 CKD-EPI creatinine equation using creatinine, patient's age, and sex for adults 18 years of age and older. Other factors, especially muscle mass, may affect accuracy and need to be considered. According to the Kidney Disease: Improving Global Outcomes (KDIGO) CKD Work Group 2012 Clinical Practice Guideline, chronic kidney disease (CKD) is defined as the abnormalities of kidney structure or function, present for more than 3 months, with implications for health. CKD should be classified by cause, GFR category, and albuminuria category. KDIGO guidelines provide the following GFR categories. Stage / Description / GFR mL/min/1.73 m2: G1* / Normal or high / >= 90 G2* / Mildly decreased / 60-89 G3a / Mildly to moderately decreased / 45-59 G3b / Moderately to severely decreased / 30-44 G4 / Severely decreased / 15-29 G5 / Kidney failure / <15 *In the absence of evidence of kidney damage, neither G1 nor G2 fulfill criteria for CKD. Blood Peripheral blood specimen / Unknown Venipuncture / Unknown 01/20/2024 8:28 AM CDT 01/20/2024 8:32 AM CDT us Tee Salas MD LAB BLOOD ORDERABLES Final Resul t [facility] Unless otherwise noted, all lab tests performed by: Division of Pathology and Laboratory Medicine [address] [place] [phone] * Lipid Panel (01/20/2024 8:28 AM CDT) Only the most recent of3 resultswithin the time period is included. Cholesterol Total 183 <=199 mg/dL 01/20/2024 9:23 AM CDT [facility] Comment: ATP III Classification of Total Cholesterol - Primary Target of Therapy (in mg/dL): <200 Desirable 200-239 Borderline high >=240 High Triglyceride 142 <=149 mg/dL 01/20/2024 9:23 AM CDT [facility] Comment: ATP III Classification of Serum Triglycerides Primary Target of Therapy (in mg/dL): <150 Normal 150-199 Borderline high 200-499 High >=500 Very high Non-fasting triglycerides >200 mg/dL may be followed up with a fasting Lipid Panel. Calculated LDL-C may be falsely decreased when non-fasting triglycerides >200 mg/dL. HDL Cholesterol 77 >=40 mg/dL 01/20/2024 9:23 AM CDT [facility] LDL Cholesterol 78 <=100 mg/dL 01/20/2024 9:23 AM CDT [facility] Comment: ATP III Classification of LDL Cholesterol Primary Target of Therapy (in mg/dL): <100 Optimal 100-129 Near optimal/above optimal 130-159 Borderline high 160-189 High >=190 Very high Very Low Density Lipoprotein 28 mg/dL 01/20/2024 9:23 AM CDT [facility] Is patient fasting? Yes 01/19 9:23 AM CDT [facility] Blood Peripheral blood specimen / Unknown Venipuncture / Unknown 01/20/2024 8:28 AM CDT 01/20/2024 8:32 AM CDT us Tee Salas MD LAB BLOOD ORDERABLES Final Resul t [facility] Unless otherwise noted, all lab tests performed by: Division of Pathology and Laboratory Medicine [address] [place] [id number] * Electrolyte Panel (01/20/2024 8:28 AM CDT) Only the most recent of3 resultswithin the time period is included. Sodium Level 138 136 - 145 mmol/L 01/20/2024 9:23 AM CDT [facility] Potassium Level 4.5 3.4 - 4.5 mmol/L 01/20/2024 9:23 AM CDT [facility] Chloride 102 98 - 107 mmol/L 01/20/2024 9:23 AM CDT [facility] CO2 26 22 - 29 mmol/L 01/20/2024 9:23 AM CDT [facility] Anion Gap 10 4 - 14 mmol/L 01/20/2024 9:23 AM CDT [facility] Blood Peripheral blood specimen / Unknown Venipuncture / Unknown 01/20/2024 8:28 AM CDT 01/20/2024 8:32 AM CDT us Tee Salas MD LAB BLOOD ORDERABLES Final Resul t [facility] Unless otherwise noted, all lab tests performed by: Division of Pathology and Laboratory Medicine [address] [place] [phone] * CT Chest Abdomen Pelvis with and without Contrast (12/31/2023 10:50 AM CDT) Only the most recent of2 resultswithin the time period is included. Anatomical Region Laterality Modality Abdomen, Pelvis, Chest Computed Tomography 12/31/2023 1:23 PM CDT Impressions 12/31/2023 4:59 PM CDT 1. Postoperative changes of total pancreaticoduodenectomy with resolution of nodular soft tissue thickening within the operative bed, compatible with postoperative changes. No specific evidence of local recurrence or metastatic disease. 2. Stable soft tissue tissue thickening along the common hepatic artery, also likely postoperative and can be followed. 3. Coalescing omental fat stranding, likely postoperative fat necrosis. 4. Decreased size of subcentimeter upper abdominal lymph nodes, probably reactive. 5. Severe diffuse hepatic steatosis. ACTIONABLE ITEMS/RECOMMENDATIONS*: None. *An Actionable Finding is a finding that may be unrelated to the original reason for imaging but potentially actionable, meaning further investigation may be necessary. The Actionable Findings Vigilance Unit (AFVU) assists medical providers with responding to additional radiologic findings that are unexpected and potentially actionable. I personally reviewed these image(s) along with the resident's/fellow's interpretations, certify that if a procedure was performed I was physically present, and agree with the final report. Narrative 12/31/2023 4:59 PM CDT FULL RESULT: Examination: CT CHEST ABDOMEN PELVIS W WO CONTRAST on 12/31/2023 10:50 AM. Clinical History: Adenocarcinoma of pancreas. 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 Comparison: CT chest abdomen pelvis dated 08/27/2023, and 09/18/2021. Technique: CT CHEST ABDOMEN PELVIS W WO CONTRAST Findings: CHEST: Lungs and Pleura: Stable sub-5 mm pulmonary nodules (annotated), some possibly mucous plugging and are stable since 09/18/2021, consistent with benign etiology. No pleural effusion or consolidation. Cardiomediastinum: Unremarkable heart and pericardium. Lymph nodes: No lymphadenopathy. ABDOMEN AND PELVIS: Hepatobiliary: Severe diffuse hepatic steatosis limits the detection of liver lesions. No definite suspicious hepatic lesions are visualized. No biliary dilation. Post cholecystectomy. 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 Pancreas: Postoperative changes of total pancreaticoduodenectomy and antrectomy. Stable soft tissue thickening along the common hepatic artery. Nodular tissue within the pancreatectomy bed have resolved. Adrenal Glands: No nodule. Kidneys, Ureters, and Bladder: Small renal cysts are stable. No hydronephrosis. The urinary bladder appears normal. Gastrointestinal Tract: No evidence of acute bowel obstruction. Pelvic Organs: Unremarkable. Peritoneum/Retroperitoneum: Coalescing fat stranding in the omentum, likely postoperative fat necrosis and can be followed. No discrete peritoneal nodules. No ascites. Lymph Nodes: A few upper abdominal lymph nodes are annotated in series 11, slightly decreased in size compared to the prior study, possibly reactive. For instance: * Gastrohepatic, 4 mm (image 43). * Left para-aortic, 8 mm (image 45) and 6 mm (image 57). MUSCULOSKELETAL: Grade 1 anterolisthesis of L4 on L5. Midline postoperative changes in the abdominal wall. No suspicious bone lesions. Procedure Note Margarita Ibarra, DO - 12/31/2023 FULL RESULT: Examination: CT CHEST ABDOMEN PELVIS W WO CONTRAST on 12/31/2023 10:50AM. Clinical History: Adenocarcinoma of pancreas. Indication: Pancreatic adenocarcinoma arising from IPMN, status post totalpancreatectomy in July 2023. Comparison: CT chest abdomen pelvis dated 08/27/2023, and 09/18/2021. Technique: CT CHEST ABDOMEN PELVIS W WO CONTRAST Findings: CHEST: Lungs and Pleura: Stable sub-5 mm pulmonary nodules (annotated), somepossibly mucous plugging and are stable since 09/18/2021, consistent withbenign etiology. No pleural effusion or consolidation. Cardiomediastinum: Unremarkable heart and pericardium. Lymph nodes: No lymphadenopathy. ABDOMEN AND PELVIS: Hepatobiliary: Severe diffuse hepatic steatosis limits the detection ofliver lesions. No definite suspicious hepatic lesions are visualized. Nobiliary dilation. Post cholecystectomy. 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 Pancreas: Postoperative changes of total pancreaticoduodenectomy andantrectomy. Stable soft tissue thickening along the common hepatic artery.Nodular tissue within the pancreatectomy bed have resolved. Adrenal Glands: No nodule. Kidneys, Ureters, and Bladder: Small renal cysts are stable. Nohydronephrosis. The urinary bladder appears normal. Gastrointestinal Tract: No evidence of acute bowel obstruction. Pelvic Organs: Unremarkable. Peritoneum/Retroperitoneum: Coalescing fat stranding in the omentum,likely postoperative fat necrosis and can be followed. No discreteperitoneal nodules. No ascites. Lymph Nodes: A few upper abdominal lymph nodes are annotated in series 11,slightly decreased in size compared to the prior study, possibly reactive.For instance: * Gastrohepatic, 4 mm (image 43). * Left para-aortic, 8 mm (image 45) and 6 mm (image 57). MUSCULOSKELETAL: Grade 1 anterolisthesis of L4 on L5. Midlinepostoperative changes in the abdominal wall. No suspicious bone lesions. IMPRESSION: 1. Postoperative changes of total pancreaticoduodenectomy with resolutionof nodular soft tissue thickening within the operative bed, compatiblewith postoperative changes. No specific evidence of local recurrence ormetastatic disease. 2. Stable soft tissue tissue thickening along the common hepatic artery,also likely postoperative and can be followed. 3. Coalescing omental fat stranding, likely postoperative fat necrosis. 4. Decreased size of subcentimeter upper abdominal lymph nodes, probablyreactive. 5. Severe diffuse hepatic steatosis. ACTIONABLE ITEMS/RECOMMENDATIONS*: None. *An Actionable Finding is a finding that may be unrelated to the originalreason for imaging but potentially actionable, meaning furtherinvestigation may be necessary. The Actionable Findings Vigilance Unit(AFVU) assists medical providers with responding to additional radiologicfindings that are unexpected and potentially actionable. I personally reviewed these image(s) along with the resident's/fellow'sinterpretations, certify that if a procedure was performed I wasphysically present, and agree with the final report. Yudy MARTIN IMG CT ORDERABLES Fi nal Result * .CBC (12/31/2023 7:45 AM CDT) Only the most recent of10 resultswithin the time period is included. White Blood Cell 7.0 4.1 - 10.5 K/uL 12/31/2023 8:01 AM CDT [facility] Red Blood Cell 4.82 3.99 - 5.46 M/uL 12/31/2023 8:01 AM CDT [facility] Hemoglobin 14.2 12.2 - 15.3 g/dL 12/31/2023 8:01 AM CDT [facility] Hematocrit 42.5 36.4 - 46.8 % 12/31/2023 8:01 AM [facility] Mean Cell Volume 88 82 - 99 fL 12/31/19 8:01 AM [facility] Mean Cell Hemoglobin 29.5 26.6 - 33.2 pg 12/31/2023 8:01 AM [facility] Mean Cell Hemoglobin Concentration 33.4 31.1 - 35.2 g/dL 12/31/2023 8:01 AM [facility] RDW-SD 47.2 37.5 - 49.7 fL 12/31/2023 8:01 AM [facility] Red Cell Diameter Width 14.6 11.6 - 15.5 % 12/31/2023 8:01 AM [facility] Platelet 272 160 - 397 K/uL 12/31/2023 8:01 AM [facility] Mean Platelet Volume 10.4 9.1 - 12.6 fL 12/31/2023 8:01 AM [facility] INRBC 0.0 0.0 - 0.1 /100 WBC 12/31/2023 8:01 AM [facility] Comment: The INRBC (instrument NRBC) value reflects the enumeration of nucleated red blood cells contained in a 200uL sample of whole blood analyzed by the instrument. This value may differ from the NRBC value reported in a manual differential, which is based on a 100 cell differential. Neutrophil % 43.2 43.2 - 72.7 % 12/31/2023 8:01 AM [facility] Lymphocyte % 41.9 16.8 - 46.2 % 12/31/2023 8:01 AM [facility] Monocyte % 9.6 5.1 - 12.5 % 12/31/2023 8:01 AM [facility] Eosinophil % 4.6 0.4 - 6.3 % 12/31/2023 8:01 AM [facility] Basophil % 0.6 0.2 - 1.4 % 12/31/2023 8:01 AM [facility] IGRE % 0.1 0.1 - 1.5 % 12/31/2023 8:01 AM [facility] Comment:The IGRE% includes M etamyelocytes, Myelocytes and Promyelocytes. Neutrophil Abs 3.03 1.95 - 7.25 K/uL 12/31/2023 8:01 AM CDT [facility] Lymphocyte Abs 2.93 1.01 - 3.24 K/uL 12/31/2023 8:01 AM CDT [facility] Monocyte Abs 0.67 0.24 - 0.85 K/uL 12/31/2023 8:01 AM CDT [facility] Eosinophil Abs 0.32 0.02 - 0.50 K/uL 12/31/2023 8:01 AM CDT [facility] Basophil Abs 0.04 0.02 - 0.09 K/uL 12/31/2023 8:01 AM CDT [facility] IG Abs 0.01 0.01 - 0.12 K/uL 12/31/2023 8:01 AM CDT [facility] Blood Peripheral blood specimen / Unknown Venipuncture / Unknown 12/31/2023 7:45 AM CDT 12/31/2023 7:49 AM CDT Yudy MARTIN LAB BLOOD ORDERABLES Final Result [facility] Unless otherwise noted, all lab tests performed by: Division of Pathology and Laboratory Medicine [address] [place] [id number] * (ABNORMAL) Comprehensive Metabolic Panel (12/31/2023 7:45 AM CDT) Only the most recent of6 resultswithin the time period is included. Bilirubin Total 0.6 0.0 - 1.2 mg/dL 12/31/2023 8:33 AM CDT [facility] Comment:Indocyanine Green (I CG) may cause falsely elevated bilirubin results. Total and direct bilirubin must not be measured from samples containing indocyanine green. False elevation of total bilirubin can be seen in patients with IgG concentrations above 28 g/L. eGFR 100 >=60 mL/min/1. 73 sq. m 12/31/2023 8:33 AM CDT [facility] Comment: The eGFRcr is calculated with the 2020 CKD-EPI creatinine equation using creatinine, patient's age, and sex for adults 18 years of age and older. Other factors, especially muscle mass, may affect accuracy and need to be considered. According to the Kidney Disease: Improving Global Outcomes (KDIGO) CKD Work Group 2012 Clinical Practice Guideline, chronic kidney disease (CKD) is defined as the abnormalities of kidney structure or function, present for more than 3 months, with implications for health. CKD should be classified by cause, GFR category, and albuminuria category. KDIGO guidelines provide the following GFR categories. Stage / Description / GFR mL/min/1.73 m2: G1* / Normal or high / >= 90 G2* / Mildly decreased / 60-89 G3a / Mildly to moderately decreased / 45-59 G3b / Moderately to severely decreased / 30-44 G4 / Severely decreased / 15-29 G5 / Kidney failure / <15 *In the absence of evidence of kidney damage, neither G1 nor G2 fulfill criteria for CKD. Tot Protein 8.0 6.4 - 8.3 gm/dL 12/31/2023 8:33 AM T [facility] Calcium Level Total 10.1 8.2 - 10.2 mg/dL 12/31/2023 8:33 AM [facility] Alkaline Phosphatase 120(H) 35 - 104 U/L 12/31/2023 8:33 AM [facility] Albumin Level 4.3 3.5 - 5.2 gm/dL 12/31/2023 8:33 AM [facility] AST 86(H) <=32 U/L 12/31/2023 8:33 AM T [facility] ALT 67(H) <=33 U/L 12/31/2023 8:33 AM [facility] Sodium Level 139 136 - 145 mmol/L 12/31/2023 8:33 AM [facility] Potassium Level 4.4 3.4 - 4.5 mmol/L 12/31/2023 8:33 AM [facility] Chloride 100 98 - 107 mmol/L 12/31/2023 8:33 AM [facility] CO2 30(H) 22 - 29 mmol/L 12/31/2023 8:33 AM [facility] Anion Gap 9 4 - 14 mmol/L 12/31/2023 8:33 AM CDT [facility] Creatinine 0.57 0.51 - 0.95 mg/dL 12/31/2023 8:33 AM CDT [facility] BUN 21 6 - 23 mg/dL 12/31/2023 8:33 AM CDT [facility] Glucose Level 154(H) 70 - 99 mg/dL 12/31/2023 8:33 AM CDT [facility] Comment: Effective 11/02/15, the glucose reference intervals have been updated based on [place] [employer] guidelines (Standards of Medical Care in Diabetes 2016. Diabetes Care 2016; 39: S13-S22). Fasting blood glucose: Normal: 70-99 mg/dL Impaired fasting glucose (increased risk for diabetes or pre-diabetes): 100-125 mg/dL Diabetes mellitus: >/=126 mg/dL Random blood glucose: Normal: 70-199 mg/dL Note: Random glucose >100 mg/dL is associated with increased risk for diabetes. Blood Peripheral blood specimen / Unknown Venipuncture / Unknown 12/31/2023 7:45 AM CDT 12/31/2023 7:48 AM CDT Yudy MARTIN LAB BLOOD ORDERABLES Final Result [facility] Unless otherwise noted, all lab tests performed by: Division of Pathology and Laboratory Medicine [address] [place] [phone] * CA 19-9 (12/31/2023 7:45 AM CDT) Only the most recent of4 resultswithin the time period is included. CA 19-9 20.7 <=35.0 U/mL 12/31/2023 9:18 AM CDT [facility] Blood Peripheral blood specimen / Unknown Venipuncture / Unknown 12/31/2023 7:45 AM CDT 12/31/2023 7:48 AM CDT Narrative [facility] - 12/31/2023 9:18 AM CDT Results greater than 9500 U/mL may not be reliable due to matrix effect with extended dilution as it exceeds the group manager's recommended limit. Caution should be exercised when interpreting such values and done in conjunction with clinical context. This test is measured by electrochemiluminescence immunoassay on Willian Yary immunoassay analyzers. Results obtained in different methods are not interchangeable. Yudy MARTIN LAB BLOOD ORDERABLES Final Result Performing Organization Address City/[facility]/ZIP Co de Phone Number [facility] Unless otherwise noted, all lab tests performed by: Division of Pathology and Laboratory Medicine [address] [place] [phone] * Vitamin D 25OH (12/31/2023 7:45 AM CDT) Only the most recent of2 resultswithin the time period is included. Pathologist [facility] Vitamin D 25 OH 31 30 - 100 ng/mL 12/31/2023 9:01 AM CDT [facility] Blood Peripheral blood specimen / Unknown Venipuncture / Unknown 12/31/2023 7:45 AM CDT 12/31/2023 7:48 AM CDT Narrative [facility] - 12/31/2023 9:01 AM CDT Reference Range: Deficiency: <=20 ng/mL Insufficiency: 21-29 ng/mL Sufficiency: 30-100 ng/mL Potential toxicity: >100 ng/mL Zeenat Mercado APRN LAB BLOOD ORDERABLES Final Resu lt Performing Organization Address City/[facility]/[place] de Phone Number [facility] Unless otherwise noted, all lab tests performed by: Division of Pathology and Laboratory Medicine [address] [place] [phone] * (ABNORMAL) Prealbumin (12/31/2023 7:45 AM CDT) Only the most recent of3 resultswithin the time period is included. Pathologist [facility] Prealbumin 13.6(L) 20.0 - 40.0 mg/dL 12/31/2023 12:24 PM CDT [facility] Blood Peripheral blood specimen / Unknown Venipuncture / Unknown 12/31/2023 7:45 AM CDT 12/31/2023 7:48 AM CDT us Zeenat Mercado KENNEL TECHNICIAN LAB BLOOD ORDERABLES Final Resu lt [facility] Unless otherwise noted, all lab tests performed by: Division of Pathology and Laboratory Medicine [address] [place] [id number] * Vitamin B12 Level (12/31/2023 7:45 AM CDT) Only the most recent of2 resultswithin the time period is included. Vitamin B12 Level 510 232 - 1,245 pg/mL 12/31/2023 9:05 AM CDT [facility] Is patient fasting? Yes 12/31/2023 9:05 AM CDT [facility] Blood Peripheral blood specimen / Unknown Venipuncture / Unknown 12/31/2023 7:45 AM CDT 12/31/2023 7:48 AM CDT Narrative [facility] - 12/31/2023 9:05 AM CDT Reference range established based on adult population. us Zeenat Mercado KENNEL TECHNICIAN LAB BLOOD ORDERABLES Final Resu lt [facility] Unless otherwise noted, all lab tests performed by: Division of Pathology and Laboratory Medicine [address] [place] [address] Unless otherwise noted, all lab tests performed by: Division of Pathology and Laboratory Medicine [address] [place] [address] * CEA (12/31/2023 7:45 AM CDT) Carcinoembryonic Antigen 1.5 <=3.8 ng/mL 12/31/2023 8:39 AM CDT [facility] Blood Peripheral blood specimen / Unknown Venipuncture / Unknown 12/31/2023 7:45 AM CDT 12/31/2023 7:48 AM CDT Narrative [facility] - 12/31/2023 8:39 AM CDT Reference Ranges (age 20-69 years): Non-smoker: 0.0 - 3.8 ng/mL Smoker: 0.0 - 5.5 ng/mL This test is measured by electrochemiluminescence immunoassay on Willian Yary immunoassay analyzers. Results obtained in different methods are not interchangeable. Yudy MARTIN LAB BLOOD ORDERABLES Final Result Performing Organization Address City/[facility]/ZIP Co de Phone Number [facility] Unless otherwise noted, all lab tests performed by: Division of Pathology and Laboratory Medicine [address] [place] [phone] * TSH (09/18/2023 7:43 AM CDT) Only the most recent of2 resultswithin the time period is included. Thyroid Stimulating Hormone 0.93 0.27 - 4.20 mcunit/mL 09/18/2023 8:40 AM CDT [facility] Blood Peripheral blood specimen / Unknown Venipuncture / Unknown 09/18/2023 7:43 AM CDT 09/18/2023 7:45 AM CDT Ruben Amato APRN LAB BLOOD ORDERABLES Final Resul t Performing Organization Address [facility]/[place] de Phone Number [facility] Unless otherwise noted, all lab tests performed by: Division of Pathology and Laboratory Medicine [address] [place] [phone] * Free T4 (09/18/2023 7:43 AM CDT) Only the most recent of2 resultswithin the time period is included. T4 (Thyroxine) Free 0.99 0.93 - 1.70 ng/dL 09/18/2023 8:40 AM CDT [facility] Blood Peripheral blood specimen / Unknown Venipuncture / Unknown 09/18/2023 7:43 AM CDT 09/18/2023 7:45 AM CDT Ruben Amato APRN LAB BLOOD ORDERABLES Final Resul t Performing Organization Address City/[facility] Co de Phone Number [facility] Unless otherwise noted, all lab tests performed by: Division of Pathology and Laboratory Medicine [address] [place] [phone] * CT Chest Abdomen Pelvis with Contrast (08/27/2023 10:32 AM CDT) Anatomical Region Laterality Modality Abdomen, Pelvis, Chest Computed Tomography 08/27/2023 1:03 PM CDT Impressions 08/27/2023 1:54 PM CDT 1. Postoperative changes from recent pancreaticoduodenectomy and antrectomy with areas of nodular soft tissue thickening in the operative bed that may be due to recent surgery. 2. New heterogeneous stranding within omentum is likely postoperative. 3. New subcentimeter hepatic observations are nonspecific and may be postoperative. 4. Increased lymph nodes within the abdomen are likely reactive. 5. Diffuse hepatic steatosis. 6. No evidence of metastatic disease within the chest. ACTIONABLE ITEMS/RECOMMENDATIONS*: None. *An Actionable Finding is a finding that may be unrelated to the original reason for imaging but potentially actionable, meaning further investigation may be necessary. The Actionable Findings Vigilance Unit (AFVU) assists medical providers with responding to additional radiologic findings that are unexpected and potentially actionable. Narrative 08/27/2023 1:54 PM CDT FULL RESULT: Examination: CT CHEST ABDOMEN PELVIS W CONTRAST on 08/27/2023 10:32 AM. 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 Indication: Cancer surveillance. Baseline postoperative exam. Comparison: 07/02/2023. Technique: CT CHEST ABDOMEN PELVIS W CONTRAST. Findings: CHEST FINDINGS: Lungs and Pleura: Scattered sub-5 mm nodules are stable on images 43, 61, 73, and 80 of series 14. Bibasilar atelectasis is present. No pleural effusion. Cardiomediastinum: - Thyroid: Normal - Cardiovascular: Heart size is normal. - Esophagus: Normal in appearance. Lymph nodes: No enlarged lymph nodes. ABDOMEN AND PELVIS FINDINGS: Hepatobiliary: There is diffuse hepatic steatosis. Liver measures 16 cm. New subcentimeter linear hypodense observations within the right hepatic lobe on image 2:30 AM 272 series 13, are nonspecific and may be postoperative. Nonspecific. Pneumobilia is present. The patient status post choledochojejunostomy. Gallbladder is absent. 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 Adrenal Glands: Normal Pancreas: Postsurgical changes are present from previous distal pancreatectomy and recent total pancreaticoduodenectomy. Soft tissue thickening along the common hepatic artery is increased and likely postoperative. Areas of nodular soft tissue thickening within the pancreatectomy bed may be postoperative: * Near the left gastric artery, image 259 of series 13 measuring 1.3 x 1 cm. * Posterior to the stomach surgical margin, image 265 series 13, measuring 1.9 x 2.6 cm. * Posterior to the transverse colon, image 216 of series 13 measures 1.8 x 1.5 cm. Kidneys, Ureters, and Bladder: Small renal cyst are unchanged. No hydronephrosis. Urinary bladder is normal. Pelvic Organs: Uterus is normal. No adnexal mass. Gastrointestinal Tract: Postoperative changes are seen from distal stomach and duodenal resection with gastrojejunostomy is patent. No signs of gastric outlet obstruction. Peritoneum/Retroperitoneum: New heterogeneous stranding within the omentum is likely postoperative. No measurable nodules or ascites. No drainable fluid collections. Lymph Nodes: Increased lymph nodes within the abdomen may be reactive, examples: * Gastrohepatic, image 267 of series 13 measuring 0.8 cm, previously 0.4 cm. * Left para-aortic, image 274 series 13 measuring 0.7 cm, previously 0.4 cm. Vessels: Aorta is normal in size. Postoperative changes are seen within the upper abdominal vasculature with increased surrounding soft tissue thickening is likely postoperative. MUSCULOSKELETAL: Grade 1 anterolisthesis of L4 on L5. No new osseous lesions. Postoperative changes are present along the midline abdominal wall. OTHER: - Chest wall: Breast tissues are unremarkable. Procedure Note Jean Claude Mccullough MD - 08/27/2023 FULL RESULT: Examination: CT CHEST ABDOMEN PELVIS W CONTRAST on 08/27/2023 10:32 AM. 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 Indication: Cancer surveillance. Baseline postoperative exam. Comparison: 07/02/2023. Technique: CT CHEST ABDOMEN PELVIS W CONTRAST. Findings: CHEST FINDINGS: Lungs and Pleura: Scattered sub-5 mm nodules are stable on images 43, 61,73, and 80 of series 14. Bibasilar atelectasis is present. No pleuraleffusion. Cardiomediastinum: - Thyroid: Normal - Cardiovascular: Heart size is normal. - Esophagus: Normal in appearance. Lymph nodes: No enlarged lymph nodes. ABDOMEN AND PELVIS FINDINGS: Hepatobiliary: There is diffuse hepatic steatosis. Liver measures 16 cm. Newsubcentimeter linear hypodense observations within the right hepatic lobeon image 2:30 AM 272 series 13, are nonspecific and may be postoperative.Nonspecific. Pneumobilia is present. The patient status postcholedochojejunostomy. Gallbladder is absent. 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 Adrenal Glands: Normal Pancreas: Postsurgical changes are present from previous distalpancreatectomy and recent total pancreaticoduodenectomy. Soft tissuethickening along the common hepatic artery is increased and likelypostoperative. Areas of nodular soft tissue thickening within thepancreatectomy bed may be postoperative: * Near the left gastric artery, image 259 of series 13 measuring 1.3 x 1cm. * Posterior to the stomach surgical margin, image 265 series 13,measuring 1.9 x 2.6 cm. * Posterior to the transverse colon, image 216 of series 13 measures 1.8x 1.5 cm. Kidneys, Ureters, and Bladder: Small renal cyst are unchanged. Nohydronephrosis. Urinary bladder is normal. Pelvic Organs: Uterus is normal. No adnexal mass. Gastrointestinal Tract: Postoperative changes are seen from distal stomachand duodenal resection with gastrojejunostomy is patent. No signs ofgastric outlet obstruction. Peritoneum/Retroperitoneum: New heterogeneous stranding within the omentumis likely postoperative. No measurable nodules or ascites. No drainablefluid collections. Lymph Nodes: Increased lymph nodes within the abdomen may be reactive,examples: * Gastrohepatic, image 267 of series 13 measuring 0.8 cm, previously 0.4cm. * Left para-aortic, image 274 series 13 measuring 0.7 cm, previously 0.4cm. Vessels: Aorta is normal in size. Postoperative changes are seen withinthe upper abdominal vasculature with increased surrounding soft tissuethickening is likely postoperative. MUSCULOSKELETAL: Grade 1 anterolisthesis of L4 on L5. No new osseous lesions. Postoperativechanges are present along the midline abdominal wall. OTHER: - Chest wall: Breast tissues are unremarkable. IMPRESSION: 1. Postoperative changes from recent pancreaticoduodenectomy andantrectomy with areas of nodular soft tissue thickening in the operativebed that may be due to recent surgery. 2. New heterogeneous stranding within omentum is likely postoperative. 3. New subcentimeter hepatic observations are nonspecific and may bepostoperative. 4. Increased lymph nodes within the abdomen are likely reactive. 5. Diffuse hepatic steatosis. 6. No evidence of metastatic disease within the chest. ACTIONABLE ITEMS/RECOMMENDATIONS*: None. *An Actionable Finding is a finding that may be unrelated to the originalreason for imaging but potentially actionable, meaning furtherinvestigation may be necessary. The Actionable Findings Vigilance Unit(AFVU) assists medical providers with responding to additional radiologicfindings that are unexpected and potentially actionable. Zeenat Mercado APRN IMG CT ORDERABLES Final Result * (ABNORMAL) Hemogram (08/27/2023 6:42 AM CDT) Only the most recent of2 resultswithin the time period is included. White Blood Cell 7.5 4.1 - 10.5 K/uL 08/27/2023 6:58 AM [facility] Red Blood Cell 4.32 3.99 - 5.46 M/uL 08/27/2023 6:58 AM [facility] Hemoglobin 13.6 12.2 - 15.3 g/dL 08/27/2023 6:58 AM [facility] Hematocrit 42.2 36.4 - 46.8 % 08/27/2023 6:58 AM [facility] Mean Cell Volume 98 82 - 99 fL 08/27/2023 6:58 AM [facility] Mean Cell Hemoglobin 31.5 26.6 - 33.2 pg 08/27/2023 6:58 AM [facility] Mean Cell Hemoglobin Concentration 32.2 31.1 - 35.2 g/dL 08/27/2023 6:58 AM [facility] RDW-SD 53.0(H) 37.5 - 49.7 fL 08/27/2023 6:58 AM [facility] Red Cell Diameter Width 14.6 11.6 - 15.5 % 08/27/2023 6:58 AM [facility] Platelet 440(H) 160 - 397 K/uL 08/27/2023 6:58 AM [facility] Mean Platelet Volume 10.1 9.1 - 12.6 fL 08/27/2023 6:58 AM [facility] Blood Peripheral blood specimen / Unknown Venipuncture / Unknown 08/27/2023 6:42 AM CDT 08/27/2023 6:49 AM CDT us Zeenat Mercado KENNEL TECHNICIAN LAB BLOOD ORDERABLES Final Resu lt [address], [address] [id number] * Research Protocol [id number] (08/27/2023 6:42 AM CDT) Only the most recent of2 resultswithin the time period is included. Pathologist [facility] Research Protocol Specimen Specimen Collected, Ready for Pickup. 08/27/2023 3:01 PM CDT [place] Blood Venipuncture / Unknown 08/27/2023 6:42 AM CDT 08/27/2023 6:49 AM CDT us Leigh Mcclain MD RESEARCH LAB Z CODES Final Re sult Performing Organization Address City/[facility]/ZIP Co de Phone Number [facility] Unless otherwise noted, all lab tests performed by: Division of Pathology and Laboratory Medicine [address] [place] [id number] [place] [phone] * Phosphorus Level (07/31/2023 12:03 PM CDT) Only the most recent of13 resultswithin the time period is included. Pathologist [facility] Phosphorus Level 2.8 2.5 - 4.5 mg/dL 07/31/2023 12:45 PM CDT [facility] Blood Peripheral blood specimen / Unknown Venipuncture / Unknown 07/31/2023 12:03 PM CDT 07/31/2023 12:10 PM CDT us Jolene Covington KENNEL TECHNICIAN LAB BLOOD ORDERABLES Fin al Result [facility] Unless otherwise noted, all lab tests performed by: Division of Pathology and Laboratory Medicine [address] [place] [phone] * Magnesium Level (07/31/2023 12:03 PM CDT) Only the most recent of10 resultswithin the time period is included. Magnesium Level 2.1 1.6 - 2.6 mg/dL 07/31/2023 12:45 PM CDT [facility] Blood Peripheral blood specimen / Unknown Venipuncture / Unknown 07/31/2023 12:03 PM CDT 07/31/2023 12:10 PM CDT us Jolene Covington APRN LAB BLOOD ORDERABLES Fin al Result [facility] Unless otherwise noted, all lab tests performed by: Division of Pathology and Laboratory Medicine [address] [place] [phone] * (ABNORMAL) POC Glucose Screen - Fingerstick (07/29/2023 7:32 AM CDT) Only the most recent of29 resultswithin the time period is included. Glucose Screen 138(H) 70 - 99 mg/dL 07/29/2023 7:33 AM CDT [facility] POC Sample Type Capillary 07/29/2023 7:33 AM CDT [facility] Blood 07/29/2023 7:32 AM CDT 07/29/2023 7:33 AM CDT Narrative [facility] - 07/29/2023 7:33 AM CDT Capillary blood samples, e.g. obtained by fingerstick, may have inaccurate results in patients with decreased peripheral blood flow. Method description: All results are measured using Electrochemistry test methodology. The glucose in the sample mixes with the reagents on the test strip. The reaction produces an electric current. The amount of current produced is proportional to the glucose concentration in the blood. All POC Glucose screen test results, including critical values, must be interpreted and evaluated in the context of the patients' clinical findings. It is recommended to confirm any questionable test results by core lab methodology. us Leigh Mcclain MD POCT ORDERABLES - DEVICE Amara l Result [facility] Unless otherwise noted, all lab tests performed by: Division of Pathology and Laboratory Medicine [address] [place] [address] * (ABNORMAL) Basic Metabolic Panel- Calcium Ionized (07/29/2023 2:25 AM CDT) Only the most recent of9 resultswithin the time period is included. eGFR 105 >=60 mL/min/1. 73 sq. m 07/29/2023 3:07 AM CDT [facility] Comment: The eGFRcr is calculated with the 2020 CKD-EPI creatinine equation using creatinine, patient's age, and sex for adults 18 years of age and older. Other factors, especially muscle mass, may affect accuracy and need to be considered. According to the Kidney Disease: Improving Global Outcomes (KDIGO) CKD Work Group 2012 Clinical Practice Guideline, chronic kidney disease (CKD) is defined as the abnormalities of kidney structure or function, present for more than 3 months, with implications for health. CKD should be classified by cause, GFR category, and albuminuria category. KDIGO guidelines provide the following GFR categories. Stage / Description / GFR mL/min/1.73 m2: G1* / Normal or high / >= 90 G2* / Mildly decreased / 60-89 G3a / Mildly to moderately decreased / 45-59 G3b / Moderately to severely decreased / 30-44 G4 / Severely decreased / 15-29 G5 / Kidney failure / <15 *In the absence of evidence of kidney damage, neither G1 nor G2 fulfill criteria for CKD. Sodium Level 137 136 - 145 mmol/L 07/29/2023 3:07 AM CDT [facility] Potassium Level 4.1 3.4 - 4.5 mmol/L 07/29/2023 3:07 AM CDT [facility] Chloride 100 98 - 107 mmol/L 07/29/2023 3:07 AM CDT [facility] CO2 26 22 - 29 mmol/L 07/29/2023 3:07 AM CDT [facility] Anion Gap 11 4 - 14 mmol/L 07/29/2023 3:07 AM CDT [facility] Creatinine 0.46(L) 0.51 - 0.95 mg/dL 07/29/2023 3:07 AM CDT [facility] BUN 11 6 - 23 mg/dL 07/29/2023 3:07 AM CDT [facility] Glucose Level 122(H) 70 - 99 mg/dL 07/29/2023 3:07 AM CDT [facility] Comment: Effective 11/02/15, the glucose reference intervals have been updated based on [place] [employer] guidelines (Standards of Medical Care in Diabetes 2016. Diabetes Care 2016; 39: S13-S22). Fasting blood glucose: Normal: 70-99 mg/dL Impaired fasting glucose (increased risk for diabetes or pre-diabetes): 100-125 mg/dL Diabetes mellitus: >/=126 mg/dL Random blood glucose: Normal: 70-199 mg/dL Note: Random glucose >100 mg/dL is associated with increased risk for diabetes. Blood Peripheral blood specimen / Unknown Venipuncture / Unknown 07/29/2023 2:25 AM CDT 07/29/2023 2:34 AM CDT us Jolene Covington APRN LAB BLOOD ORDERABLES Fin al Result [facility] Unless otherwise noted, all lab tests performed by: Division of Pathology and Laboratory Medicine [address] [place] [phone] * (ABNORMAL) Calcium Ionized, Venous (07/29/2023 2:25 AM CDT) Only the most recent of9 resultswithin the time period is included. Venous Ionized Calcium 1.14(L) 1.15 - 1.29 mmol/L 07/29/2023 2:36 AM CDT [facility] Oxygen FLOW Rate/ FiO2 07/29/2023 2:36 AM CDT [facility] O2 Therapy 07/29/2023 2:36 AM CDT [facility] Blood Peripheral blood specimen / Unknown Venipuncture / Unknown 07/29/2023 2:25 AM CDT 07/29/2023 2:34 AM CDT Jolene Covington KENNEL TECHNICIAN LAB BLOOD ORDERABLES Fin al Result [facility] Unless otherwise noted, all lab tests performed by: Division of Pathology and Laboratory Medicine [address] [place] [phone] * Type and screen (07/29/2023 2:25 AM CDT) Only the most recent of4 resultswithin the time period is included. Pathologist [facility] ABORh A POS 07/29/2023 12:00 AM CDT [facility] ABSC Negative 07/29/2023 12:00 AM CDT [facility] Clot Expiration 08/01/2023 23:59 07/29/2023 12:00 AM CDT [facility] Historical Record Check Complete 07/29/2023 12:00 AM CDT [facility] Blood Peripheral blood specimen / Unknown Venipuncture / Unknown 07/29/2023 2:25 AM CDT 07/29/2023 2:35 AM CDT us Katya Harrell KENNEL TECHNICIAN BLOOD BANK TEST ORDERABLES Final Result [facility] [address] [place] [address] [id number] [place] [address] * CRP (07/29/2023 2:25 AM CDT) Only the most recent of6 resultswithin the time period is included. Pathologist [facility] CRP (C Reactive Protein) 60.17 mg/L 07/29/2023 3:19 AM CDT [facility] Blood Peripheral blood specimen / Unknown Venipuncture / Unknown 07/29/2023 2:25 AM CDT 07/29/2023 2:34 AM CDT Narrative [facility] - 07/29/2023 3:19 AM CDT Adult Reference ranges for HS CRP assay are as follows: Reference ranges when used to assess cardiac risk: <1.00 mg/L Low cardiovascular risk 1.00-3.00 mg/L Average cardiovascular risk >3.00 mg/L High cardiovascular risk Reference ranges when used to assess inflammatory responses: Less than or equal to 10.00 mg/L. us Jolene Covington APRN LAB BLOOD ORDERABLES Fin al Result [facility] Unless otherwise noted, all lab tests performed by: Division of Pathology and Laboratory Medicine [address] [place] [id number] * (ABNORMAL) Basic Metabolic Panel- Total Calcium (07/28/2023 5:09 PM CDT) Only the most recent of3 resultswithin the time period is included. eGFR 100 >=60 mL/min/1.7 3 sq. m 07/28/2023 5:44 PM CDT [facility] Comment: The eGFRcr is calculated with the 2020 CKD-EPI creatinine equation using creatinine, patient's age, and sex for adults 18 years of age and older. Other factors, especially muscle mass, may affect accuracy and need to be considered. According to the Kidney Disease: Improving Global Outcomes (KDIGO) CKD Work Group 2012 Clinical Practice Guideline, chronic kidney disease (CKD) is defined as the abnormalities of kidney structure or function, present for more than 3 months, with implications for health. CKD should be classified by cause, GFR category, and albuminuria category. KDIGO guidelines provide the following GFR categories. Stage / Description / GFR mL/min/1.73 m2: G1* / Normal or high / >= 90 G2* / Mildly decreased / 60-89 G3a / Mildly to moderately decreased / 45-59 G3b / Moderately to severely decreased / 30-44 G4 / Severely decreased / 15-29 G5 / Kidney failure / <15 *In the absence of evidence of kidney damage, neither G1 nor G2 fulfill criteria for CKD. Calcium Level Total 8.9 8.2 - 10.2 mg/dL 07/28/2023 5:44 PM CDT [facility] Sodium Level 138 136 - 145 mmol/L 07/28/2023 5:44 PM CDT [facility] Potassium Level 4.1 3.4 - 4.5 mmol/L 07/28/2023 5:44 PM CDT [facility] Chloride 99 98 - 107 mmol/L 07/28/2023 5:44 PM CDT [facility] CO2 30(H) 22 - 29 mmol/L 07/28/2023 5:44 PM CDT [facility] Anion Gap 9 4 - 14 mmol/L 07/28/2023 5:44 PM CDT [facility] Creatinine 0.56 0.51 - 0.95 mg/dL 07/28/2023 5:44 PM CDT [facility] BUN 12 6 - 23 mg/dL 07/28/2023 5:44 PM CDT [facility] Glucose Level 136(H) 70 - 99 mg/dL 07/28/2023 5:44 PM CDT [facility] Comment: Effective 11/02/15, the glucose reference intervals have been updated based on [place] [employer] guidelines (Standards of Medical Care in Diabetes 2016. Diabetes Care 2016; 39: S13-S22). Fasting blood glucose: Normal: 70-99 mg/dL Impaired fasting glucose (increased risk for diabetes or pre-diabetes): 100-125 mg/dL Diabetes mellitus: >/=126 mg/dL Random blood glucose: Normal: 70-199 mg/dL Note: Random glucose >100 mg/dL is associated with increased risk for diabetes. Blood Peripheral blood specimen / Unknown Venipuncture / Unknown 07/28/2023 5:09 PM CDT 07/28/2023 5:13 PM CDT us Rosario Peters MD LAB BLOOD ORDERABLES Final Re sult [facility] Unless otherwise noted, all lab tests performed by: Division of Pathology and Laboratory Medicine [address] [place] [phone] * EKG, 12-Lead (07/27/2023) us Sam Worthy DO ECG ORDERABLES Final R esult [facility] IECG * (ABNORMAL) Hepatic Function Panel (07/26/2023 12:34 PM CDT) Bilirubin Total 0.5 0.0 - 1.2 mg/dL 07/26/2023 2:29 PM CDT [facility] Comment:Indocyanine Green (I CG) may cause falsely elevated bilirubin results. Total and direct bilirubin must not be measured from samples containing indocyanine green. False elevation of total bilirubin can be seen in patients with IgG concentrations above 28 g/L. Bilirubin Direct 0.2 0.0 - 0.3 mg/dL 07/26/2023 2:29 PM CDT [facility] Comment:Indocyanine Green (I CG) may cause falsely elevated bilirubin results. Total and direct bilirubin must not be measured from samples containing indocyanine green. Bilirubin Indirect 0.3 0.0 - 0.9 mg/dL 07/26/2023 2:29 PM CDT [facility] Tot Protein 6.4 6.4 - 8.3 gm/dL 07/26/2023 2:29 PM CDT [facility] Alkaline Phosphatase 52 35 - 104 U/L 07/26/2023 2:29 PM CDT [facility] Albumin Level 3.5 3.5 - 5.2 gm/dL 07/26/2023 2:29 PM CDT [facility] AST 34(H) <=32 U/L 07/26/2023 2:29 PM CDT [facility] ALT 40(H) <=33 U/L 07/26/2023 2:29 PM CDT [facility] Blood Peripheral blood specimen / Unknown Venipuncture / Unknown 07/26/2023 12:34 PM CDT 07/26/2023 12:36 PM CDT us Jolene Covington APRN LAB BLOOD ORDERABLES Fin al Result [facility] Unless otherwise noted, all lab tests performed by: Division of Pathology and Laboratory Medicine [address] [place] [address] [place] [phone] * Lactic Acid, Venous (07/26/2023 12:34 PM CDT) Venous Lactate 1.2 0.5 - 1.6 mmol/L 07/26/2023 12:39 PM CDT [facility] Oxygen FLOW Rate/ FiO2 07/26/2023 12:39 PM CDT [facility] O2 Therapy 07/26/2023 12:39 PM CDT [facility] Blood Peripheral blood specimen / Unknown Venipuncture / Unknown 07/26/2023 12:34 PM CDT 07/26/2023 12:36 PM CDT Jolene L Dewhurst KENNEL TECHNICIAN LAB BLOOD ORDERABLES Fin al Result [facility] Unless otherwise noted, all lab tests performed by: Division of Pathology and Laboratory Medicine [address] [place] [phone] * (ABNORMAL) Ammonia Level (07/26/2023 12:34 PM CDT) Pathologist [facility] Ammonia Level 73(H) 11 - 51 mcmol/L 07/26/2023 12:55 PM CDT [facility] Blood Peripheral blood specimen / Unknown Venipuncture / Unknown 07/26/2023 12:34 PM CDT 07/26/2023 12:36 PM CDT Jolene L Dewhurst KENNEL TECHNICIAN LAB BLOOD ORDERABLES Fin al Result [facility] Unless otherwise noted, all lab tests performed by: Division of Pathology and Laboratory Medicine [address] [place] [phone] * (ABNORMAL) ABG (07/25/2023 2:44 PM CDT) pH Arterial 7.40 7.35 - 7.45 07/25/2023 2:50 PM CDT [facility] P CO2 Arterial 50.2(H) 32.0 - 45.0 mmHg 07/25/2023 2:50 PM CDT [facility] P O2 Arterial 99 83 - 108 mmHg 07/25/2023 2:50 PM CDT [facility] Bicarbonate Arterial 31(H) 21 - 28 mmol/L 07/25/2023 2:50 PM CDT [facility] Base Excess Arterial 6(H) -2 - 3 mmol/L 07/25/2023 2:50 PM CDT [facility] Oxygen Saturation Arterial 99 95 - 99 % 07/25/2023 2:50 PM CDT [facility] Oxygen FLOW Rate/ FiO2 07/25/2023 2:50 PM CDT [facility] O2 Therapy Room air 07/25/2023 2:50 PM CDT [facility] Art Giovanni Test Yes (Collatera l Circulatio n) 07/25/2023 2:50 PM CDT [facility] Blood (Arterial Puncture) Arterial Puncture / Unknown 07/25/2023 2:44 PM CDT 07/25/2023 2:48 PM CDT Jolene Covington KENNEL TECHNICIAN LAB BLOOD ORDERABLES Fin al Result [facility] Unless otherwise noted, all lab tests performed by: Division of Pathology and Laboratory Medicine [address] [place] [phone] * XR Chest 1 View (07/25/2023 2:40 PM CDT) Anatomical Region Laterality Modality Chest Digital Radiogra phy 07/25/2023 2:45 PM CDT Impressions 07/25/2023 2:46 PM CDT Low lung volumes, but clear lungs and pleural spaces. ACTIONABLE ITEMS/RECOMMENDATIONS*: None. *An Actionable Finding is a finding that may be unrelated to the original reason for imaging but potentially actionable, meaning further investigation may be necessary. The Actionable Findings Vigilance Unit (AFVU) assists medical providers with responding to additional radiologic findings that are unexpected and potentially actionable. Narrative 07/25/2023 2:46 PM CDT FULL RESULT: Examination: XR CHEST 1 VW on 07/25/2023 2:40 PM. Clinical History: Adenocarcinoma of pancreas Indication: Altered Mental Status Comparison: Correlation with CT chest from 07/02/2023 Technique: Frontal radiograph of the chest Findings: Support Apparatus: None. Lungs/Pleura/Mediastinum: The cardiomediastinal silhouette is within normal limits. The lung volumes are low. There is no consolidation or edema. The pleural spaces are clear. The visualized osseous structures and upper abdomen are within normal limits. Procedure Note Piter Harris MD - 07/25/2023 FULL RESULT: Examination: XR CHEST 1 VW on 07/25/2023 2:40 PM. Clinical History: Adenocarcinoma of pancreas Indication: Altered Mental Status Comparison: Correlation with CT chest from 07/02/2023 Technique: Frontal radiograph of the chest Findings: Support Apparatus: None. Lungs/Pleura/Mediastinum: The cardiomediastinal silhouette is withinnormal limits. The lung volumes are low. There is no consolidation oredema. The pleural spaces are clear. The visualized osseous structures and upper abdomen are within normallimits. IMPRESSION: Low lung volumes, but clear lungs and pleural spaces. ACTIONABLE ITEMS/RECOMMENDATIONS*: None. *An Actionable Finding is a finding that may be unrelated to the originalreason for imaging but potentially actionable, meaning furtherinvestigation may be necessary. The Actionable Findings Vigilance Unit(AFVU) assists medical providers with responding to additional radiologicfindings that are unexpected and potentially actionable. us Jolene Covington KENNEL TECHNICIAN IMG DIAGNOSTIC IMAGING O RDERABLES Final Result * (ABNORMAL) VBG (07/25/2023 1:27 AM CDT) pH Venous 7.44(H) 7.32 - 7.43 07/25/2023 1:40 AM CDT [facility] P CO2 Venous 45.1 41.0 - 51.0 mmHg 07/25/2023 1:40 AM CDT [facility] P O2 Venous 182 mmHg 07/25/2023 1:40 AM CDT [facility] Bicarbonate Venous 31(H) 21 - 28 mmol/L 07/25/2023 1:40 AM CDT [facility] Base Excess Venous 6(H) -2 - 3 mmol/L 07/25/2023 1:40 AM CDT [facility] Oxygen Saturation Venous 100 % 07/25/2023 1:40 AM CDT [facility] Oxygen FLOW Rate/ FiO2 07/25/2023 1:40 AM CDT [facility] O2 Therapy 07/25/2023 1:40 AM CDT [facility] Blood Peripheral blood specimen / Unknown Venipuncture / Unknown 07/25/2023 1:27 AM CDT 07/25/2023 1:33 AM CDT Katya Harrell KENNEL TECHNICIAN LAB BLOOD ORDERABLES Final Resul t 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 No dysplasia or malignancy identified. B: Bile duct, margin, resection: Segment of bile duct. Negative for high-grade dysplasia or carcinoma. C: Pancreas, distal stomach, duodenum, bile duct, pancreaticoduodenectomy : MINIMALLY INVASIVE ADENOCARCINOMA, WELL DIFFERENTIATED (0.3 MM) (C12). 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 TUMOR IS CONFINED TO PANCREAS. No lymphovascular or perineural invasion identified. All margins of resection are negative for invasive adenocarcinoma. ITPN INVOLVES SUTURED PANCREATIC SURGICAL AREA (see comment). Nineteen lymph nodes negative for metastatic carcinoma (0/19). Stomach and duodenum with no significant diagnostic alterations. See synoptic report. D: Lymph node(s), common hepatic artery, excision: One lymph node negative for metastatic carcinoma (0/1). 4 6:18 PM CDT [facility] [facility] Comment Part C. The sutured pancreatic surgical area shows focal ITPN. Due to the history of prior distal pancreatectomy, the designated pancreatic surgical area may not be the real surgical margin. Please correlate with surgical procedure note. 4 6:18 PM CDT [facility] Synoptic Checklist PANCREAS (EXOCRINE) PANCREAS (EXOCRINE) - All Specimens 8th Edition - Protocol posted: 09/27/2021 SPECIMEN Procedure: Pancreaticoduodenecto my (Whipple resection), partial pancreatectomy TUMOR Tumor Site: Pancreatic head Histologic Type: Intraductal papillary neoplasm with an associated invasive carcinoma Histologic Grade: G1, well differentiated Tumor Size: Greatest Dimension (Centimeters): 0.03 cm Site(s) Involved by Direct Tumor Extension: Confined to pancreas Treatment Effect: No known presurgical therapy Lymphovascular Invasion: Not identified Perineural Invasion: Not identified MARGINS Margin Status for Invasive Carcinoma: All margins negative for invasive carcinoma Closest Margin(s) to Invasive Carcinoma: Uncinate (retroperitoneal / superior mesenteric artery) Distance from Invasive Carcinoma to Closest Margin: Cannot be determined: microscopic tumor focus Margin Status for Dysplasia and Intraepithelial Neoplasia: Cannot be determined: ITPN is presnt at sutured pancreatic surgical area, it may not be the margin due to prior distal pancreatectomy REGIONAL LYMPH NODES Regional Lymph Node Status: : All regional lymph nodes negative for tumor Number of Lymph Nodes Examined: 20 PATHOLOGIC STAGE CLASSIFICATION (pTNM, AJCC 8th Edition) Reporting of pT, pN, and (when applicable) pM categories is based on information available to the pathologist at the time the report is issued. As per the AJCC (Chapter 1, 8th Ed.) it is the managing physician s responsibility to establish the final pathologic stage based upon all pertinent information, including but potentially not limited to this pathology report. pT Category: pT1a pN Category: pN0 ADDITIONAL FINDINGS Additional Findings: Pancreatic intraepithelial neoplasia (PanIN) (highest grade): low 4 6:18 PM CDT [facility] Gross Description A: Gallbladder, permanent, or 15.: Received fresh is a gallbladder (7.3 x 3.8 x 1.4 cm) with roughened focally cauterized ahmadi-brown glistening hepatic resection margin and pink-red glistening to yellow-red multilobulated fibrofatty serosal surface. Cystic duct margin is identified and removed en face. No cystic duct lymph node grossly identified. Specimen open to reveal copious viscous red-brown fluid contents without grossly apparent calculi. Mucosal surface is red-brown velvety without grossly apparent erosion ulceration or mass lesion end with diffuse yellow-jordan speckling throughout. Gallbladder wall is 0.3 cm in average thickness. SECTION CODE: A1, cystic duct margin en face; A2-A3, sales representative raw fibers full-thickness sections gallbladder wall. PB B: Bile duct, bile duct margin, true margin on telfa, frozen, or 15.: It consists of a 0.9 x 0.6 x 0.5 cm jordan-pink, irregular soft tissue fragment. SECTION CODE: B1, specimen entirely submitted Telfa down for frozen section and permanent. AK C: Pancreas, pancreas, distal stomach, duodenum, bile duct, permanent, or 15.: A pancreaticoduodenectomy that includes the head of the pancreas (8.2 x 6.5 x 2.0 cm), a segment of the extrapancreatic common bile duct (approximately 7.0 cm in length x 0.4 cm in diameter), a portion of duodenum (30.5 cm in length x 4.0 cm in circumference), a portion of distal stomach (9.0 x 3.5 x 1.7 cm unopened), and a detached portion of possible omentum (19.5 x 9.1 x 2.1 cm). The specimen is inked per protocol. The pancreas and underlying duodenum are serially sectioned from superior to inferior. The slices are sequentially placed, numbered, photographed and mapped for the section code. The specimen is reviewed with Dr. Garcia. The pancreatic neck margin is not grossly identified; this area is remarkable for multiple sutures and clips and will be designated as surgical area. There is a cystic area containing pink to jordan-brown material (1.8 cm S-I x 1.6 cm M-L x 1.1 A-P cm, from slice 6 to slice 8 grossly) located in the head of the pancreas. The cystic area does not involve the posterior peripancreatic soft tissue. The cystic area does not involve the duodenum or the ampulla of Vater. The main pancreatic duct is difficult to delineate at the margin and is grossly involved by the cystic area. The common bile duct is patent, is not dilated, and is not grossly involved by the cystic area. The fibrotic area comes to within approximately 0.7 cm from the vascular groove, is 1.1 cm from the retroperitoneal/uncinat e margin, 1.6 cm from the posterior fascia, 3.4 cm from the common bile duct resection margin, 2.0 cm from the surgical area, 7.0 cm from the proximal gastric margin, 22.0 cm from the distal duodenal margin. The cystic area does not grossly involve the anterior serosa. The uninvolved pancreas is lobulated. The uninvolved stomach and duodenum are grossly unremarkable. Two possible peripancreatic lymph nodes (ranging from 0.6-2.1 cm in greatest dimension) are identified. No possible perigastric lymph nodes are identified. Sales Representative Raw Fibers non-neoplastic pancreas and tumor are submitted to the clinical research bank. INK CODE: Black - retroperitoneal margin/uncinate margin, Blue - vascular groove, Red - anterior serosa, Yellow - posterior surface, Blount - common bile duct, Green -surgical area SECTION CODE: C1, pancreatic surgical area (en face); C2-C10, entire uncinate margin sequentially submitted from superior to inferior, slices 1-9; C11, surgical area with unremarkable pancreas, slice two; C12, unremarkable pancreas with common bile duct, slice four; C13, common bile duct, slice five; C14-C15, area of cyst to include vascular groove, slice six; C16-C19, remainder of slice seven to include cyst and contents; C20-C21, remainder of cyst to include vascular groove, slice eight; C22-C23, parenchyma inferior to cyst, slice nine; C24, unremarkable parenchyma, slice 10; C25, area of ampulla, slice 12; C26, proximal gastric margin (en face); C27, distal duodenal margin (en face); C28, unremarkable stomach and duodenum mucosa; C29-C30, sales representative raw fibers sections of possible omentum; C31-C33, one possible peripancreatic lymph node (serially section); C34, one possible peripancreatic lymph and (bisected); C35-C41, entire peripancreatic adipose tissue; C42-C50, sales representative raw fibers sections of perigastric adipose tissue. MF D: Lymph node(s), common hepatic artery, permanent, or 15.: Consists of a yellow-jordan lymph node (okay yeah 1.3 cm). The specimen is bisected and entirely submitted in cassette D1. ML 4 6:18 PM CDT [facility] Intraoperative Evaluation A: B: Bile duct, bile duct margin, true margin on telfa, frozen, or 15.: Negative for carcinoma and dysplasia. SHARONDA/FYS 4 6:18 PM CDT [facility] Biomarker Block(s) insufficient 4 6:18 PM CDT [facility] Disclaimer "Some tests reported here may have been developed and performance characteristics determined by [facility] Pathology and Laboratory Medicine. These tests have not been specifically cleared or approved by the U.S. Food and Drug Administration. If applicable, controls were reviewed and showed appropriate reactivity." 4 6:18 PM CDT [facility] Tissue (Gallbladder) 07/23/2023 10:55 AM CDT 07/23/2023 11:11 AM CDT Tissue specimen (specimen) (Bile Duct) 07/23/2023 11:04 AM CDT 07/23/2023 11:11 AM CDT Tissue specimen (specimen) (Pancreas) 07/23/2023 1:03 PM CDT 07/23/2023 1:13 PM CDT Tissue specimen (specimen) (Lymph Node(s), Common Hepatic Artery) 07/23/2023 1:07 PM CDT 07/23/2023 1:13 PM CDT us Leigh Mcclain MD LAB PATHOLOGY ORDERABLES Amara [place] valle Result [address] [address], [place] * (ABNORMAL) ABG+ (ABG, Na, K, Cl, Glu, Hgb, Hct, Lactate, Ion Ca) (07/23/2023 7:42 AM CDT) Sodium Arterial 139 136 - 146 mmol/L 07/23/2023 7:48 AM CDT [facility] Potassium Arterial 3.8 3.4 - 4.5 mmol/L 07/23/2023 7:48 AM CDT [facility] Chloride Arterial 103 98 - 106 mmol/L 07/23/2023 7:48 AM CDT [facility] Glucose Arterial 166(H) 70 - 105 mg/dL 07/23/2023 7:48 AM [facility] Hgb Art 12.7 12.0 - 16.0 g/dL 07/23/2023 7:48 AM [facility] Hematocrit Arterial 39 37 - 48 % 07/23/2023 7:48 AM [facility] Lactate Arterial 0.9(H) 0.4 - 0.8 mmol/L 07/23/2023 7:48 AM [facility] Calcium Ionized Arterial 1.15 1.15 - 1.29 mmol/L 07/23/2023 7:48 AM [facility] pH Arterial 7.45 7.35 - 7.45 07/23/2023 7:48 AM [facility] P CO2 Arterial 41.0 32.0 - 45.0 mmHg 07/23/2023 7:48 AM [facility] P O2 Arterial 162(H) 83 - 108 mmHg 07/23/2023 7:48 AM [facility] Bicarbonate Arterial 28 21 - 28 mmol/L 07/23/2023 7:48 AM [facility] WB Anion Gap 8 7 - 16 mmol/L 07/23/2023 7:48 AM [facility] Base Excess Arterial 4(H) -2 - 3 mmol/L 07/23/2023 7:48 AM [facility] Oxygen Saturation Arterial 100(H) 95 - 99 % 07/23/2023 7:48 AM [facility] Oxygen FLOW Rate/ FiO2 07/23/2023 7:48 AM [facility] O2 Therapy 07/23/2023 7:48 AM [facility] Art Giovanni Test Not Applicable (Arterial Line Draw) 07/23/2023 7:48 AM [facility] Blood Arterial blood specimen / Unknown Arterial Puncture / Unknown 07/23/2023 7:42 AM T 07/23/2023 7:46 AM [facility] - 07/23/2023 7:48 AM [facility] The ABL90 Flex Plus analyzer is an in vitro diagnostic portable, automated analyzer that measures pH, blood gas, electrolytes, hemoglobin, glucose and lactate in whole blood. This analyzer uses the methodologies noted to perform quantitative measurement of the parameters listed when tested. 1) pH, pCO2, K+, Na+, Ca2+ and Cl- are measured by potentiometry. The potential of an electrode chain is measured by a voltmeter, and related to the concentration of the sample. 2) Glucose and Lactate are measured by amperometry. The magnitude of an electrical current that flows through an electrode chain is proportional to the concentration of the substance that is oxidized or reduced at a electrode in the chain. 3) pO2 is measured by optical pO2. The optical system for pO2 is based on the ability of O2 to reduce the intensity and time constant of the phosphorescence from a phosphorescent dye that is in contact with the sample. 4) Hemoglobin and sO2 are measured by spectrophotometry. Light passes through a cuvette that contains a hemolyzed blood sample. The absorption spectrum is used to calculate oximetry parameters. 5) Hematocrit is derive from the total hemoglobin multiplied by the standard value 0.0301. Kayleigh Irizarry [facility] LAB BLOOD ORDERABLES Final Resu lt [facility] Unless otherwise noted, all lab tests performed by: Division of Pathology and Laboratory Medicine [address] [place] [id number] * 2. Peripheral block (07/23/2023 7:40 AM CDT) Angeli Stevenson MD - 07/23/2023 7:40 AM CDT Angeli Nugent MD 07/23/2023 11:15 AM 2. Peripheral block Patient location during procedure: OR Reason for block: at surgeon's request and post-op pain management Staffing Performed: OR anesthesiologist Preanesthetic Checklist Completed: patient identified, site marked, surgical consent, pre-op evaluation, timeout performed, IV checked, risks and benefits discussed and monitors and equipment checked Peripheral Block Patient position: supine Prep: alcohol/chlorhexidine gluconate swab 2% Maximal sterile barriers used: Yes Patient monitoring: heart rate, monitor car operator and continuous pulse ox Block type: Abdomen and Quadratus Lumborum (QL) and Subcostal TAP Laterality: bilateral Injection technique: single-shot Procedures: ultrasound guided Needle Needle type: Pajunk Needle gauge: 21 G Needle length: 4 in Needle localization: ultrasound guidance Attempts: 1 Medications Administered bupivacaine liposomal PF (EXPAREL) 266 mg/20 mL suspension - local infiltration 20 mL - 07/23/2023 7:40:00 AM bupivacaine PF (SENSORCAINE,MARCAINE) 2.5 mg/mL(0.25%) injection - peripheral nerve block 60 mL - 07/23/2023 7:40:00 AM Med File Time: 07/23/2023 7:40 AM Assessment Injection assessment: negative aspiration for heme, incremental injection and local visualized surrounding nerve on ultrasound Heart rate change: no Slow fractionated injection: yes Events: no acute complications Additional Notes Anesthesia time out prior to procedure. Ultrasound guided bilateral QL block with bilateral subcostal TAP block. Mixture used- 20cc Exparel with 60cc 0.25% Bupi. Pajunk 21g needle. 25cc of solution injected in QL space bilaterally and 15cc in subcostal TAP bilaterally. Aspiration every 5cc. The patient tolerated the procedure well. Angeli Nugent MD ANESTHESIA ORDERABLES Final Result * Intraoperative Ultrasound Without Report (07/23/2023 5:35 AM CDT) Narrative Systemgenerated, Documentation - 07/23/2023 5:35 AM CDT This procedure requires no interpretation from the radiologist. Zeenat Mercado APRN IMG NON DI ORDERABLES Final Res ult * Historical ABORh (07/02/2023 11:22 AM CDT) Pathologist [facility] ABORh A POS 07/02/2023 11:23 AM CDT [facility] Blood Peripheral blood specimen / Unknown 07/02/2023 11:22 AM CDT 07/02/2023 11:22 AM CDT Zeenat Mercado APRN BLOOD BANK TEST ORDERABLES Amara l Result [facility] [id number] [place] [address] * Partial Thromboplastin Time (07/02/2023 10:57 AM CDT) Activated PTT 30.1 24.1 - 35.5 second(s) 07/02/2023 11:43 AM CDT [facility] Blood Peripheral blood specimen / Unknown Venipuncture / Unknown 07/02/2023 10:57 AM CDT 07/02/2023 11:03 AM CDT Zeenat Mercado KENNEL TECHNICIAN LAB BLOOD ORDERABLES Final Resu lt Performing Organization Address [facility] Co de Phone Number [address] [place] [address] * Prothrombin Time with INR (07/02/2023 10:57 AM CDT) Pathologist [facility] Prothrombin Time 12.5 11.9 - 14.5 second(s) 07/02/2023 11:43 AM T [facility] International Normalization Ratio 0.97 0.87 - 1.12 07/02/2023 11:43 AM T [facility] Blood Peripheral blood specimen / Unknown Venipuncture / Unknown 07/02/2023 10:57 AM CDT 07/02/2023 11:03 AM CDT Zeenat Mercado KENNEL TECHNICIAN LAB BLOOD ORDERABLES Final Resu lt Performing Organization Address [facility] de Phone Number [address] [place] [address] * EKG, 12-Lead (Scheduled) (07/02/2023) us Zeenat Mercado KENNEL TECHNICIAN ECG ORDERABLES Final Result Performing Organization Address [facility] Co de Phone Number [facility] * MRI Abdomen with and without Contrast (05/03/2023 2:47 PM FOOD SERVICE CLERK) Anatomical Region Laterality Modality Abdomen Magnetic Resonan ce 05/06/2023 9:22 AM FOOD SERVICE CLERK Impressions 05/06/2023 12:20 PM FOOD SERVICE CLERK Redemonstrated enhancing nodular component within the main pancreatic duct compatible with main duct type of intraductal papillary mucinous neoplasm with malignant transformation. ACTIONABLE ITEMS/RECOMMENDATIONS: See Impression I personally reviewed these image(s) along with the resident's/fellow's interpretations, certify that if a procedure was performed I was physically present, and agree with the final report. Narrative 05/06/2023 12:20 PM FOOD SERVICE CLERK Examination: MRI ABDOMEN W WO CONTRAST on 05/03/2023 2:47 PM Clinical history: Adenocarcinoma of pancreas Indication: pancreas protocol to evaluate recurrence Comparison: CT 05/03/2023, MR 02/05/2023. Technique: MRI ABDOMEN W WO CONTRAST FINDINGS: Lower thorax: Unremarkable within the limitation of this modality. Hepatobiliary: No suspicious focal hepatic lesion. Diffuse hepatic steatosis. Unremarkable gallbladder. No biliary ductal dilation. Simple hepatic cysts are noted. Multiple small enhancing foci in the right liver which disappear on subsequent phases are likely perfusional. Spleen: Surgically absent. Pancreas: Patient is status post distal pancreatectomy. Within the dilated main duct there is a redemonstrated T2 hyperintense enhancing nodule measuring up to 1.4 cm in long axis (series 20 image 58, series 8 image 20); this lesion is better characterized on prior CT. This lesion is enlarged compared to prior MR from 02/05/23. No vascular involvement. Additional subcentimeter cystic lesions not associated with the pancreatic duct, located within the uncinate process image 20, 35 may represent additional IPMN's vs simple cysts. Adrenal glands: No adrenal nodule. Genitourinary: No hydronephrosis or suspicious renal mass. There are simple renal cysts. Gastrointestinal tract/Peritoneum: Visualized portions are normal in caliber and wall thickness. No ascites. Lymph nodes/Retroperitoneum: No enlarged lymph nodes. Subcentimeter portacaval node can be followed (series 15 image 31). Vessels: Normal caliber aorta and inferior vena cava. Musculoskeletal: No soft tissue mass. No suspicious osseous lesions. Procedure Note Elinor Trujillo MD - 05/06/2023 Examination: MRI ABDOMEN W WO CONTRAST on 05/03/2023 2:47 PM Clinical history: Adenocarcinoma of pancreas Indication: pancreas protocol to evaluate recurrence Comparison: CT 05/03/2023, MR 02/05/2023. Technique: MRI ABDOMEN W WO CONTRAST FINDINGS: Lower thorax: Unremarkable within the limitation of this modality. Hepatobiliary: No suspicious focal hepatic lesion. Diffuse hepaticsteatosis. Unremarkable gallbladder. No biliary ductal dilation. Simplehepatic cysts are noted. Multiple small enhancing foci in the right liverwhich disappear on subsequent phases are likely perfusional. Spleen: Surgically absent. Pancreas: Patient is status post distal pancreatectomy. Within the dilated main duct there is a redemonstrated T2 hyperintenseenhancing nodule measuring up to 1.4 cm in long axis (series 20 image 58,series 8 image 20); this lesion is better characterized on prior CT. Thislesion is enlarged compared to prior MR from 02/05/23. No vascularinvolvement. Additional subcentimeter cystic lesions not associated with thepancreatic duct, located within the uncinate process image 20, 35 mayrepresent additional IPMN's vs simple cysts. Adrenal glands: No adrenal nodule. Genitourinary: No hydronephrosis or suspicious renal mass. There aresimple renal cysts. Gastrointestinal tract/Peritoneum: Visualized portions are normal incaliber and wall thickness. No ascites. Lymph nodes/Retroperitoneum: No enlarged lymph nodes. Subcentimeterportacaval node can be followed (series 15 image 31). Vessels: Normal caliber aorta and inferior vena cava. Musculoskeletal: No soft tissue mass. No suspicious osseous lesions. IMPRESSION: Redemonstrated enhancing nodular component within the main pancreatic ductcompatible with main duct type of intraductal papillary mucinous neoplasmwith malignant transformation. ACTIONABLE ITEMS/RECOMMENDATIONS: See Impression I personally reviewed these image(s) along with the resident's/fellow'sinterpretations, certify that if a procedure was performed I wasphysically present, and agree with the final report. Zeenat Mercado APRN IMG MRI ORDERABLES Final Result * CT Abdomen Pelvis with and without Contrast (05/03/2023 11:12 AM FOOD SERVICE CLERK) Anatomical Region Laterality Modality Abdomen, Pelvis Computed Tomogra phy 05/03/2023 11:3 6 AM FOOD SERVICE CLERK Impressions 05/03/2023 11:56 AM FOOD SERVICE CLERK Enhancing nodular component within the main pancreatic duct in the pancreatic head is consistent with main duct type of intraductal papillary mucinous neoplasm with malignant transformation and with increasing nodular component compared to CT from 01/22/2023 ACTIONABLE ITEMS/RECOMMENDATIONS*: See Impression Narrative 05/03/2023 11:56 AM FOOD SERVICE CLERK FULL RESULT: Examination: CT ABDOMEN PELVIS W WO CONTRAST on 05/03/2023 11:12 AM. Clinical History: Adenocarcinoma of pancreas Indication: pancreas protocol to evaluate if recurrence Comparison: MRI from 01/[address] from 01/22/2023. Technique: CT ABDOMEN PELVIS W WO CONTRAST. FINDINGS: Lower Thorax: No suspicious pulmonary nodules in the lung bases. Hepatobiliary: The liver demonstrates hypodense attenuation consistent with fatty infiltration. Too small to characterize punctate segment 4 hypodensity stable No biliary dilatation. No cholecystitis. Spleen: Spleen is surgically absent Pancreas: Interval increase in size of enhancing soft tissue within the main pancreatic duct in the region of the pancreatic head with enhancing component now measuring 1.2 cm compared to 0.[address] from 01/22/2023 indicative of main duct type of intraductal papillary mucinous neoplasm and given enhancing solid component suspicious for malignant transformation. There is a rudimentary ventral duct draining through the minor papilla. Patient is status post distal pancreectomy and splenectomy Adrenal Glands: No mass. Kidneys, Ureters, Bladder: No hydronephrosis. No suspicious renal lesion. No bladder mass. Gastrointestinal Tract: No obstruction. Pelvic Organs: No CT abnormality Peritoneum/Retroperitoneum: No ascites. Lymph Nodes: Subcentimeter peripancreatic lymph nodes are stable Musculoskeletal: No suspicious skeletal lesion. Procedure Note Jsesica Smallwood MD - 05/03/2023 FULL RESULT: Examination: CT ABDOMEN PELVIS W WO CONTRAST on 05/03/2023 11:12 AM. Clinical History: Adenocarcinoma of pancreas Indication: pancreas protocol to evaluate if recurrence Comparison: MRI from 01/[address] from 01/22/2023. Technique: CT ABDOMEN PELVIS W WO CONTRAST. FINDINGS: Lower Thorax: No suspicious pulmonary nodules in the lung bases. Hepatobiliary: The liver demonstrates hypodense attenuation consistentwith fatty infiltration. Too small to characterize punctate segment 4hypodensity stable No biliary dilatation. No cholecystitis. Spleen: Spleen is surgically absent Pancreas: Interval increase in size of enhancing soft tissue within themain pancreatic duct in the region of the pancreatic head with enhancingcomponent now measuring 1.2 cm compared to 0.[address] from 01/22/2023indicative of main duct type of intraductal papillary mucinous neoplasmand given enhancing solid component suspicious for malignanttransformation. There is a rudimentary ventral duct draining through theminor papilla. Patient is status post distal pancreectomy and splenectomy Adrenal Glands: No mass. Kidneys, Ureters, Bladder: No hydronephrosis. No suspicious renal lesion.No bladder mass. Gastrointestinal Tract: No obstruction. Pelvic Organs: No CT abnormality Peritoneum/Retroperitoneum: No ascites. Lymph Nodes: Subcentimeter peripancreatic lymph nodes are stable Musculoskeletal: No suspicious skeletal lesion. IMPRESSION: Enhancing nodular component within the main pancreatic duct in thepancreatic head is consistent with main duct type of intraductal papillarymucinous neoplasm with malignant transformation and with increasingnodular component compared to CT from 01/22/2023 ACTIONABLE ITEMS/RECOMMENDATIONS*: See Impression Zeenat Mercado APRN IMG CT ORDERABLES Final Result * (ABNORMAL) Microalbumin/Creat Ratio Ur (03/14/2023 8:41 AM [facility]) Urine Albumin 3.92 mg/dL 03/14/2023 9:44 AM [facility] Comment:Normal range not idalmis ilable for collections less than 24 hours in duration. Urine Creatinine 290.5(H) 29.0 - 226.0 mg/dL 03/14/2023 9:44 AM [facility] Comment:The reference range listed is for first morning urine collection. Albumin/Creatini ne ratio (ACR) 13 <=29 mg/g 03/14/2023 9:44 AM [facility] Comment: Reference interval: <30 mg/g Interpretive comment: The presence of increased urinary albumin excretion (albuminuria) is a clinically sensitive and predictive indicator of chronic kidney disease. Albuminuria is determined by urinary albumin to creatinine ratio (UACR) in a random spot urine or a 24-hour collection. Normal: <30 mg/g Moderately increased: 30-300 mg/g Severely increased: >300 mg/g Urine Non-blood Collection / Unknown 03/14/2023 8:41 AM FOOD SERVICE CLERK 03/14/2023 8:50 AM FOOD SERVICE CLERK Tee Salas MD URINE ORDERABLES Final Result [facility] Unless otherwise noted, all lab tests performed by: Division of Pathology and Laboratory Medicine [facility] [place] [address] * Cytology Image-Guided FNA Interpretation (03/12/2023 9:34 AM FOOD SERVICE CLERK) Only the most recent of2 resultswithin the time period is included. Gross Description Specimens procured: 4 Diff Quik; 6 Pap Stain Slides 10 ml, slightly cloudy bloody fluid in RPMI 1 Cell Block Date/Time Placed in Formalin: 03/12/23 10:44 AM Size: 10. 6 mm x 8.4 mm Immediate assessment for specimen adequacy was made x1 by Dr. Almeida. 03/13/2023 11:04 AM [facility] Immediate Assessment Adequate cellularity, favor benign 03/13/2023 11:04 AM FOOD SERVICE CLERK [facility] Major Classification [facility]/benign 03/13/2023 11:04 AM [facility] Diagnosis Lymph node, periportal, fine needle aspiration: No metastatic carcinoma identified Lymphoid tissue present 03/13/2023 11:04 AM [facility] Comment The cell block preparation was evaluated and contributory toward making the above diagnosis. 03/13/2023 11:04 AM FOOD SERVICE CLERK [facility] Retained/Biomark er Testing SR: 10 S, 1 CB 03/13/2023 11:[address] [facility] Informational Points Some tests reported here may have been developed and performance characteristics determined by [facility] Pathology and Laboratory Medicine. These tests have not been specifically cleared or approved by the U.S. Food and Drug Administration. 03/13/2023 11:04 AM FOOD SERVICE CLERK [facility] Fine Needle Asp (Lymph Node(s), Periportal) 03/12/2023 9:34 AM FOOD SERVICE CLERK 03/12/2023 9:49 AM FOOD SERVICE CLERK Kenyon Mcmillan MD LAB CYTOLOGY ORDERABLES Final Re sult [facility] [id number] [place] [address], [place] after 03/05/2023 Insurance [employer] CHOICE MEDICARE PPO [employer] MEDICARE PPO Advance Directives * Full Code (Latest Code Status on File) Date Activated Date Inactivated Comments 07/23/2023 6:29 PM 07/29/2023 2:47 PM * Full Code Date Activated Date Inactivated Comments 11/09/2021 10:20 PM 11/12/2021 8:25 PM Care Teams National Account Manager Relationship Specialty Start Date End Date Kamilla Bernard MD [facility] [place] [address] [email or web address] PCP - General Internal Medicine 08/14/21 Hailee Thomas MD [address] [place] [id number] [email or web address] PCP - External Primary Care Provider Internal Medicine 08/14/21 Diane Pinto RN [address] [place] [phone] [email or web address] Registered Nurse Nursing 10/24/21 Leigh Mcclain MD [address] [place] [phone] [email or web address] Consulting Physician Gastroenterology Surgery 09/27/21 Jorge Alberto Johnson MD [address] [place] [phone] [email or web address] [email or web address] Physician Physical Medicine and Rehabilitation 09/27/21 Rosario Gregg MD [address] [place] [phone] [email or web address] Consulting Physician Internal Medicine 10/11/21 Scott Gonzalez MD [address] [place] [phone] [email or web address] Consulting Physician Gastrointestinal Medical Oncology 09/29/21 Jorje Morales MD [address] [place] [phone] [email or web address] Consulting Physician Internal Medicine 07/03/23 Jessica Mathews RN [address] [place] [phone] [email or web address] Certified Indoor Environmentalist Nursing 07/26/23 09/30/23
[2024-03-04 18:47] LABS: Blood Gas Oxyhemoglobin 61.8 % (94-97); Blood O2 Saturation 63.6 % (92-98.5)
[2024-03-04 18:48] LABS: Arterial Blood Carboxyhemoglob 0.7 % (0-1.5); Blood Gas THB 13.9 g/dl (12-18)
[2024-03-04 18:49] LABS: Absolute Monocytes 0.8 K/uL (0.1-1.3); Absolute Neutrophil 12.3 K/uL (1.8-8.0); Basophils % 0.3 % (0-1.3); Hematocrit 39.5 % (36.0-45.0); Hemoglobin 13.2 g/dL (12.0-15.0); Lymphocytes % 6.8 % (15.3-44.8); MCH 31.1 pg (27.0-35.0); MCHC 33.3 g/dL (32.0-36.0); MCV 93.4 fL (80-100); MPV 9.1 fL (7.6-11.3); Monocytes % 5.4 % (3.3-12.3); Neutrophils % 87.5 % (41.7-73.7); Platelets 226 thou/uL (152-406); RBC Red Blood Cell Count 4.23 M/uL (3.86-4.86); Red Cell Distribution Width 14.4 % (12.1-15.2)
[2024-03-04 19:06] LABS: Specific Gravity 1.024 (1.005-1.030); Urine Bilirubin NEGATIVE (Negative); Urine Blood Negative (Negative); Urine Clarity Clear (Clear); Urine Color Light-Yellow (Yellow); Urine Glucose 4+ (Over) (Negative); Urine Ketones 2+ (Negative); Urine Microscopic Reflex YN NO UMIC; Urine Nitrite NEGATIVE (Negative); Urine Protein NEGATIVE (Negative); Urine Urobilinogen Normal (Normal); Urine pH 5.5 (5.0-7.0)
[2024-03-04 19:41] LABS: Albumin 3.8 g/dL (3.4-5.0); Anion Gap 15.4 mEq/L (5.0-15.0); Globulin 3.9 g/dL (2.3-3.5); Potassium 4.4 mEq/L (3.5-5.1); Protein, Total 7.7 g/dL (6.4-8.2)
[2024-03-04] MEDS ORDERED: KETOROLAC 30 MG/ML INJ ONE (19:59)
[2024-03-04] MEDS ORDERED: INSULIN REGULAR (HUMAN) 100 UNIT/ML ONE (20:26)
--- NOTE | 2024-03-04 21:32 | ER ---
Nurse's Notes [facility] Name: Janet Feng Age: 68 yrs Sex: Female : 1955 Arrival Date: 03/04/2024 Time: 17:54 Bed 20 Private MD: Diagnosis: Hyperglycemia, unspecified;Cutaneous abscess of abdominal wall Presentation: 03/04 18:07 Chief complaint: EMS states: HIGH BLOOD SUGAR, RECENT INSULIN PUMP. Coronavirus screen: bp At this time, the client does not indicate any symptoms associated with coronavirus-19. Ebola Screen: No symptoms or risks identified at this time. Initial Sepsis Screen: Does the patient meet any 2 criteria? No. Patient's initial sepsis screen is negative. Does the patient have a suspected source of infection? No. Patient's initial sepsis screen is negative. Risk Assessment: Do you want to hurt yourself or someone else? Patient reports no desire to harm self or others. Onset of symptoms is unknown. Care prior to arrival: Medication(s) given: Normal saline infusion, 1000 mL, IV initiated. 20 GA, in the left antecubital area, Glucose check: 462. 18:07 Method Of Arrival: EMS: [facility] bp 18:07 Acuity: OSCAR 3 bp Triage Assessment: 18:07 General: Appears in no apparent distress. Behavior is cooperative, appropriate for age, bp anxious. Pain: Denies pain. EENT: No deficits noted. Neuro: No deficits noted. Cardiovascular: Rhythm is sinus tachycardia. Respiratory: No deficits noted. GI: No signs and/or symptoms were reported involving the gastrointestinal system. : No signs and/or symptoms were reported regarding the genitourinary system. Derm: No deficits noted. Musculoskeletal: No deficits noted. Historical: - Allergies: 18:45 No Known Allergies; bp - PMHx: 18:45 depressive disorder; diabetes mellitus; pancreatic cancer; bp - Immunization history:: Adult Immunizations up to date. - Infectious Disease History:: Denies. - Social history:: Smoking status: Patient denies any tobacco usage or history of. Screenin:[facility] ED Fall Risk Assessment (Adult) History of falling in the last 3 months, bp including since admission No falls in past 3 months (0 pts) Confusion or Disorientation No (0 pts) Intoxicated or Sedated No (0 pts) Impaired Gait No (0 pts) Mobility Assist Device Used No (0 pt) Altered Elimination No (0 pt) Score/Fall Risk Level 0 - 2 = Low Risk. Abuse screen: Denies threats or abuse. Denies injuries from another. Nutritional screening: No deficits noted. Tuberculosis screening: No symptoms or risk factors identified. Assessment: 18:30 Reassessment: PT UNABLE TO TOLERATE ABG, VBG DONE INSTEAD. MD NOTIFIED. bp 19:15 Reassessment: Patient and/or family updated on plan of care and expected duration. Pain rg5 level reassessed. Patient is alert, oriented x 3, equal unlabored respirations, skin warm/dry/pink. 20:30 Reassessment: Patient and/or family updated on plan of care and expected duration. Pain rg5 level reassessed. Patient is alert, oriented x 3, equal unlabored respirations, skin warm/dry/pink. 21:30 Reassessment: Patient and/or family updated on plan of care and expected duration. Pain rg5 level reassessed. Patient is alert, oriented x 3, equal unlabored respirations, skin warm/dry/pink. Vital Signs: 18:07 BP 123 / 42; Pulse 107; Resp 16; Temp 98; Pulse Ox 98% ; bp 19:15 BP 125 / 56; Pulse 104; Resp 18; Temp 98; Pulse Ox 97% on R/A; Pain 9/10; rg5 20:30 BP 117 / 56; Pulse 99; Resp 18; Pulse Ox 99% on R/A; rg5 21:25 BP 133 / 59; Pulse 89; Resp 18; Temp 98; Pulse Ox 97% on R/A; Pain 0/10; rg5 19:15 Pain Scale: Adult rg5 21:25 Pain Scale: Adult rg5 ED Course: 18:07 Patient arrived in ED. eb 18:07 Arm band placed on. bp 18:10 Allison Irizarry FNP-C is PHCP. kb 18:10 Jhonny Mccullough MD is Attending Physician. kb 18:10 Initial lab(s) drawn, by me, sent to lab. Urine collected: clean catch specimen, clear. bp Maintain EMS IV. Dressing intact. Good blood return noted. Site clean \T\ dry. Gauge \T\ site: 20 LEFT AC. Flushed with 10 mL NS. 18:30 Patient has correct armband on for positive identification. bp 18:39 Kenyon Miranda, RN is Primary Nurse. bp 18:45 Triage completed. bp 21:54 Provided Education on: post er care. rg5 21:54 No provider procedures requiring assistance completed. IV discontinued, bleeding rg5 controlled, No redness/swelling at site. Pressure dressing applied. Administered Medications: 18:30 Drug: NS 0.9% IV 1000 ml IV at 1000 ml once; to be given as a bolus over 60 minutes bp Route: IV; Rate: 1000 ml; Site: left antecubital; 19:05 Follow up: IV Status: Completed infusion; IV Intake: 1000ml rg5 20:01 Drug: Ketorolac IVP 15 mg IVP once Route: IVP; Site: left antecubital; rg5 21:04 Follow up: Response: No adverse reaction rg5 20:26 Drug: Insulin Regular Human IVP 5 units IVP once {Co-Signature: bm8 (Dani Spencer RN).} Route: IVP; Site: left antecubital; 21:04 Follow up: Response: No adverse reaction rg5 21:31 Drug: Trimethoprim-Sulfamethoxazole PO (160 mg-800 mg (DS) 1 tablet PO once Route: PO; rg5 21:47 Follow up: Response: No adverse reaction rg5 Medication: 18:30 VIS not applicable for this client. bp Intake: 19:05 IV: 1000ml; Total: 1000ml. rg5 Outcome: 21:31 Discharge ordered by MD. kb 21:54 Discharged to home ambulatory, rg5 21:54 Condition: good 21:54 Discharge instructions given to patient, family, Instructed on discharge instructions, follow up and referral plans. Demonstrated understanding of instructions, follow-up care, medications, Prescriptions given X 1, 21:55 Patient left the ED. rg5 Signatures: Allison Irizarry, ASHLEE UNDERWATER ROBOTICIST-Kenyon Pardo, RN RN Deja Pena Rommel, RN RN rg5 Dani Spencer RN bm8
--- NOTE | 2024-03-04 21:32 | EDPHYS ---
Physician Documentation [facility] Name: Janet Feng Age: 68 yrs Sex: Female : 1955 Arrival Date: 03/04/2024 Time: 17:54 Bed 20 Private MD: ED Physician Jhonny Mccullough HPI: 03/04 21:27 This 68 yrs old Female presents to ER via EMS with complaints of High Blood kb Sugar. 21:27 Pt is a 68 year old female who presents for high blood sugar that started this morning. kb States her insulin was changed and she does not believe it is working. Reports headache. States she ate half a sandwich at lunch and felt nauseated afterwards. Denies vomiting. Pt also reports erythema and soreness to area that her insulin pump was attached to in RLQ that started yesterday. . Historical: - Allergies: 18:45 No Known Allergies; bp - PMHx: 18:45 depressive disorder; diabetes mellitus; pancreatic cancer; bp - Immunization history:: Adult Immunizations up to date. - Infectious Disease History:: Denies. - Social history:: Smoking status: Patient denies any tobacco usage or history of. ROS: 21:26 Constitutional: As per HPI kb Exam: 21:26 Constitutional: This is a well developed, well nourished patient who is awake, alert, kb and in no acute distress. Head/Face: Normocephalic, atraumatic. ENT: Moist Mucous membranes Cardiovascular: Regular rate Respiratory: Respirations even and unlabored. No increased work of breathing. Talking in full sentences Abdomen/GI: Soft, non-tender. No distention Skin: Warm, dry with normal turgor. Normal color. MS/ Extremity: Pulses equal, no cyanosis. Neurovascular intact. Full, normal range of motion. Neuro: Awake and alert, GCS 15, oriented to person, place, time, and situation. 21:31 Skin: abscess, that is small, of the right lower quadrant, with induration, kb Vital Signs: 18:07 BP 123 / 42; Pulse 107; Resp 16; Temp 98; Pulse Ox 98% ; bp 19:15 BP 125 / 56; Pulse 104; Resp 18; Temp 98; Pulse Ox 97% on R/A; Pain 9/10; rg5 20:30 BP 117 / 56; Pulse 99; Resp 18; Pulse Ox 99% on R/A; rg5 21:25 BP 133 / 59; Pulse 89; Resp 18; Temp 98; Pulse Ox 97% on R/A; Pain 0/10; rg5 19:15 Pain Scale: Adult rg5 21:25 Pain Scale: Adult rg5 MDM: 18:10 Medical Screening Exam initiated kb 21:26 Differential diagnosis: DKA, hyperglycemia. Data reviewed: vital signs, nurses notes. kb Historians other than the Patient: EMS: [facility]. Counseling: I had a detailed discussion with the patient and/or guardian regarding the historical points, exam findings, and any diagnostic results supporting the discharge/admit diagnosis, lab results, the need for outpatient follow up, a family practitioner, to return to the emergency department if symptoms worsen or persist or if there are any questions or concerns that arise at home. 03/04 18:23 Order name: CBC with Diff; Complete Time: 18:51 kb 03/04 18:23 Order name: CMP; Complete Time: 21:26 kb 03/04 18:23 Order name: ABG; Complete Time: 18:51 kb 03/04 18:23 Order name: Urinalysis w/ reflexes; Complete Time: 19:15 kb 03/04 21:19 Order name: Glucose, Ancillary Testing; Complete Time: 21:20 EDMS 03/04 18:23 Order name: IV Start; Complete Time: 18:39 kb 03/04 20:56 Order name: Blood Glucose Level; Complete Time: 21:13 kb Administered Medications: 18:30 Drug: NS 0.9% IV 1000 ml IV at 1000 ml once; to be given as a bolus over 60 minutes bp Route: IV; Rate: 1000 ml; Site: left antecubital; 19:05 Follow up: IV Status: Completed infusion; IV Intake: 1000ml rg5 20:01 Drug: Ketorolac IVP 15 mg IVP once Route: IVP; Site: left antecubital; rg5 21:04 Follow up: Response: No adverse reaction rg5 20:26 Drug: Insulin Regular Human IVP 5 units IVP once {Co-Signature: bm8 (Dani Spencer rg5 RN).} Route: IVP; Site: left antecubital; 21:04 Follow up: Response: No adverse reaction rg5 21:31 Drug: Trimethoprim-Sulfamethoxazole PO (160 mg-800 mg (DS) 1 tablet PO once Route: PO; rg5 21:47 Follow up: Response: No adverse reaction rg5 Disposition Summary: 03/04/24 21:31 Discharge Ordered Notes: Location: Home kb Condition: Stable kb Diagnosis - Hyperglycemia, unspecified kb - Cutaneous abscess of abdominal wall kb Followup: kb - With: Emergency Department - When: As needed - Reason: Worsening of condition Followup: kb - With: Private Physician - When: 2 - 3 days - Reason: Recheck today's complaints, Continuance of care, Re-evaluation by your physician Discharge Instructions: - Discharge Summary Sheet kb - Skin Abscess, [id number] kb - Hyperglycemia, [id number] kb Forms: - Medication Reconciliation Form kb - Antibiotic Education kb - Prescription Opioid Use kb - Patient Portal Instructions kb - Leadership Thank You Letter kb Prescriptions: - Bactrim DS 800-160 mg Oral Tablet - take 1 tablet ORAL route every 12 hours for 10 days; 20 tablet; Refills: 0, kb Product Selection Permitted Signatures: Dispatcher [employer] EDMS Allison Irizarry, MARIA T-C MANAGER SUPPLY CHAIN-Kenyon Pardo, RN RN bp Riley Martínez, LUCIA RN rg5 Dain Spencer RN bm8 Corrections: (The following items were deleted from the chart) 21:32 21:27 Pt is a 68 year old female who presents for high blood sugar that started this kb morning. States her insulin was changed and she does not believe it is working. Reports headache. States she ate half a sandwich at lunch and felt nauseated afterwards. Denies vomiting. . kb
[2024-03-04] MEDS ORDERED: SMZ./TMP. 800/160 MG TABLET ONE (21:34)
[2024-03-04 22:30] VITALS: TEMP 98
[2024-03-04 22:34] VITALS: BP 133/59; O2SAT 97
== END 2024-03-04 21:55 | disposition home or self-care (01) ==
LOC: ER 17:54
DX: E11.65 Type 2 diabetes mellitus with hyperglycemia (principal); L02.211 Cutaneous abscess of abdominal wall; Z96.41 Presence of insulin pump (external) (internal)
CPT/HCPCS: 36415; 80053; 81003; 82805; 82947; 85025; 96361; 96374; 96375; 99284